=== PATIENT | female | born 2000 | race Caucasian/White ===

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

== ENCOUNTER 2019-04-15 18:29 | Observation (INO) | payer OTHER ==
[~2019-04-15] VITALS: Ht 160 cm; Wt 65.8 kg
[~2019-04-15 18:29] MED LIST changes: +INVEGA SUS234 MG/1.5 IM; +Loxapine10 MG PO; -PALI3TAB; +PALI3TAB PO
[2019-04-15 21:14] LABS: Source, Urine Clean Catch
[2019-04-15 21:17] LABS: Bilirubin, Urine Neg (Neg); Blood, Urine 1+ (Neg); Glucose Qualitative, Urine Neg (Neg); Ketones, Urine Neg (Neg); Leukocyte Esterase, Urine 1+ (Neg); Nitrite, Urine Neg (Neg); Protein, Urine Neg (Neg); Specific Gravity, Urine 1.015 (1.003-1.022); Urobilinogen, Urine NORM (Normal)
[2019-04-15 21:23] LABS: Appearance, Urine Clear (Clear); Color, Urine Yellow (P-Yellow)
[2019-04-15 21:24] LABS: Bacteria Rare /hpf; Red Blood Cells, Urine 0-2 /hpf (0-2); Squamous Epithelial Cells Rare /hpf (Few); White Blood Cells, Urine 0-2 /hpf (0-5)
[2019-04-15 23:42] LABS: BASOPHILS ABSOLUTE AUTO 0.02 K/mm3 (0.00-0.23); BASOPHILS PERCENT AUTO 0 % (0-2); EOSINOPHILS ABSOLUTE AUTO 0.09 K/mm3 (0.00-0.68); EOSINOPHILS PERCENT AUTO 1 % (0-6); Hematocrit 45.9 % (33.0-51.0); Hemoglobin 14.8 g/dL (11.5-16.0); IMMATURE GRAN ABSOLUTE AUTO 0.01 K/mm3 (0.00-0.10); IMMATURE GRAN PERCENT AUTO 0 % (0-1); LYMPHOCYTES ABSOLUTE AUTO 2.81 K/mm3 (0.84-5.20); LYMPHOCYTES PERCENT AUTO 32 % (21-46); MONOCYTES ABSOLUTE AUTO 0.65 K/mm3 (0.16-1.47); MONOCYTES PERCENT AUTO 7 % (4-13); Mean Corpuscular HGB 28.8 pg (26.0-34.0); Mean Corpuscular HGB Conc 32.2 g/dL (31.5-36.5); Mean Corpuscular Volume 89 fL (80-100); Mean Platelet Volume 8.6 fL (9.1-12.4); NEUTROPHILS ABSOLUTE AUTO 5.22 K/mm3 (1.96-9.15); NEUTROPHILS PERCENT AUTO 59 % (41-73); Platelet Count 295 K/mm3 (150-400); RDW Coefficient Variation 12.7 % (11.7-14.2); RDW Standard Deviation 41.5 fL (35.1-46.3); Red Blood Cell Count 5.14 M/mm3 (3.80-5.20)
[2019-04-16 00:05] LABS: Salicylate 2.5 mg/dL (2.8-20.0)
[2019-04-16 00:06] LABS: Alanine Aminotransfer (ALT/SGP 15 U/L (12-78); Albumin, Blood 4.2 g/dL (3.4-5.0); Alk Phos 77 U/L (45-116); Anion Gap 10 mmol/L (6-16); Aspartate Aminotrans (AST/SGOT 25 U/L (12-37); Bilirubin, Total 0.4 mg/dL (0.1-1.0); Blood Urea Nitrogen 10 mg/dL (8-21); Bun/Creatinine Ratio 15.2 (12.0-20.0); CO2, Blood 23 mmol/L (21-32); Calcium, Blood 8.9 mg/dL (8.5-10.1); Chloride, Blood 106 mmol/L (98-108); Creatinine, Blood 0.66 mg/dL (0.40-1.00); Ethanol (Alcohol), Blood, Med <3 mg/dL; Globulin, Blood 4.2 g/dL (2.2-4.0); Glomerular Filtration Rate >60 (60-); Glucose, Blood 109 mg/dL (70-99); Potassium, Blood 3.8 mmol/L (3.5-5.5); Sodium, Blood 139 mmol/L (136-145); Thyroxine (T4) 10.2 ug/dL (4.8-13.9); Total Protein, Blood 8.4 g/dL (6.4-8.2)
[2019-04-16 00:14] LABS: Acetaminophen, Random <2.0 ug/mL (10.0-30.0)
[2019-04-16 02:05] LABS: U Amphetamine Screen Not Detected; U Barbituate Screen Not Detected; U Benzodiazapine Screen Not Detected; U Buprenorphine Screen Not Detected; U Cannabinoids Screen Not Detected; U Cocaine Screen Not Detected; U Methadone Screen Not Detected; U Methamphetamine Screen Not Detected; U Opiates Screen Not Detected; U Oxycodone Screen Not Detected; U Phencyclidine Screen Not Detected; U Propoxyphene Screen Not Detected
== END 2019-04-19 09:00 ==
LOC: ER 18:29 → EOR 18:30
PROVIDERS: ADMIT Emergency Medicine
DX: F20.3 Undifferentiated schizophrenia (principal); F17.210 Nicotine dependence, cigarettes, uncomplicated; Z79.899 Other long term (current) drug therapy; Z88.8 Allergy status to other drugs, medicaments and biological substances
CPT/HCPCS: 80053; 81001; 81025; 84436; 84443; 85025; 87077; 87086; 87147; 87186; 99285; G0378; G0480; Q3014

== ENCOUNTER → 2019-11-27 | Outpatient (CLI) | payer OTHER ==
[~2019-11-27] MED LIST changes: +Abilify2 MG; +CLON.5; +NAPR550 PO; +Zofran4 MG PO
[2019-11-27 15:35] LABS: Adenovirus F 40/41 Not Detected (NOT DETECT); Astrovirus Not Detected (NOT DETECT); Campylobacter Sp Not Detected (NOT DETECT); Cryptosporidium Not Detected (NOT DETECT); Cyclospora Cayetanensis Not Detected (NOT DETECT); E. Coli O157 Not Detected (NOT DETECT); Entamoeba Histolytica Not Detected (NOT DETECT); Enteroaggregative E. coli-EAEC Not Detected (NOT DETECT); Enteropathogenic E. coli-EPEC Not Detected (NOT DETECT); Enterotoxigenic E. coli-ETEC Not Detected (NOT DETECT); Giardia Lamblia Not Detected (NOT DETECT); Plesiomonas Shigelloides Not Detected (NOT DETECT); Salmonella Sp Not Detected (NOT DETECT); Shiga Toxin-prod E. coli-STEC Not Detected (NOT DETECT); Shigella/Enteroin E. coli-EIEC Not Detected (NOT DETECT); Vibrio Cholerae Not Detected (NOT DETECT); Vibrio Sp Not Detected (NOT DETECT); Yersinia Enterocolitica Not Detected (NOT DETECT)
[2019-11-27 15:36] LABS: Norovirus GI/GII Not Detected (NOT DETECT); Rotavirus A Not Detected (NOT DETECT); Sapovirus Not Detected (NOT DETECT)
== END ==
LOC: LAB 12:55 → LAB SHORT 12:55 → LAB FUT 11-19 10:00
PROVIDERS: Nurse Practitioner Family
DX: R19.7 Diarrhea, unspecified (principal)
CPT/HCPCS: 0097U

== ENCOUNTER 2020-06-08 20:36 | Emergency (ER) | payer OTHER ==
[~2020-06-08] VITALS: Ht 154.9 cm; Wt 68.0 kg
[2020-06-08 21:02] LABS: Bilirubin, Urine Neg (Neg); Blood, Urine 2+ (Neg); Glucose Qualitative, Urine Neg (Neg); Ketones, Urine Neg (Neg); Leukocyte Esterase, Urine 3+ (Neg); Nitrite, Urine Neg (Neg); Protein, Urine 2+ (Neg); Source, Urine Clean Catch; Urobilinogen, Urine 1+ (Normal)
[2020-06-08 21:05] LABS: Appearance, Urine Hazy (Clear); Color, Urine Yellow (P-Yellow)
[2020-06-08 21:09] LABS: Bacteria Few /hpf; Red Blood Cells, Urine 0-2 /hpf (0-2); Squamous Epithelial Cells Not Seen /hpf (Few)
== END 2020-06-08 21:20 | disposition left against medical advice (07) ==
LOC: ER 20:36
PROVIDERS: Physician Assistant
DX: R19.7 Diarrhea, unspecified (principal); R11.10 Vomiting, unspecified; Z53.21 Procedure and treatment not carried out due to patient leaving prior to being seen by health care provider
CPT/HCPCS: 81001; 87086; 99283

== ENCOUNTER 2020-06-22 19:33 | Emergency (ER) | payer OTHER ==
[~2020-06-22] VITALS: Ht 154.9 cm; Wt 64.9 kg
[2020-06-22 20:52] LABS: BASOPHILS ABSOLUTE AUTO 0.03 K/mm3 (0.00-0.23); BASOPHILS PERCENT AUTO 0 % (0-2); EOSINOPHILS ABSOLUTE AUTO 0.08 K/mm3 (0.00-0.68); EOSINOPHILS PERCENT AUTO 1 % (0-6); Hematocrit 42.1 % (33.0-51.0); Hemoglobin 14.5 g/dL (11.5-16.0); IMMATURE GRAN ABSOLUTE AUTO 0.03 K/mm3 (0.00-0.10); IMMATURE GRAN PERCENT AUTO 0 % (0-1); LYMPHOCYTES PERCENT AUTO 17 % (21-46); MONOCYTES ABSOLUTE AUTO 0.79 K/mm3 (0.16-1.47); MONOCYTES PERCENT AUTO 7 % (4-13); Mean Corpuscular HGB 30.2 pg (26.0-34.0); Mean Corpuscular HGB Conc 34.4 g/dL (31.5-36.5); Mean Corpuscular Volume 88 fL (80-100); Mean Platelet Volume 9.1 fL (9.1-12.4); NEUTROPHILS PERCENT AUTO 75 % (41-73); Platelet Count 301 K/mm3 (150-400); RDW Coefficient Variation 12.4 % (11.7-14.2); RDW Standard Deviation 40.4 fL (35.1-46.3); White Blood Cell Count 11.13 K/mm3 (4.00-11.30)
[2020-06-22 21:10] LABS: Alanine Aminotransfer (ALT/SGP 27 U/L (12-78); Albumin, Blood 4.4 g/dL (3.4-5.0); Albumin/Globulin Ratio 1.2 (0.8-1.8); Alk Phos 68 U/L (50-136); Anion Gap 5 mmol/L (6-16); Aspartate Aminotrans (AST/SGOT 45 U/L (12-37); Bilirubin, Total 0.3 mg/dL (0.1-1.0); Blood Urea Nitrogen 8 mg/dL (8-24); Bun/Creatinine Ratio 10.3 (12.0-20.0); CO2, Blood 25 mmol/L (21-32); Calcium, Blood 8.9 mg/dL (8.5-10.1); Chloride, Blood 106 mmol/L (98-108); Creatinine, Blood 0.78 mg/dL (0.40-1.00); Globulin, Blood 3.6 g/dL (2.2-4.0); Glomerular Filtration Rate >60 (60-); Glucose, Blood 89 mg/dL (70-99); Potassium, Blood 4.1 mmol/L (3.5-5.5); Sodium, Blood 136 mmol/L (136-145)
[2020-06-22 21:48] LABS: Source, Urine Clean Catch
[2020-06-22 21:52] LABS: Bilirubin, Urine Neg (Neg); Blood, Urine Neg (Neg); Glucose Qualitative, Urine Neg (Neg); Ketones, Urine Neg (Neg); Leukocyte Esterase, Urine 2+ (Neg); Nitrite, Urine Neg (Neg); Protein, Urine 1+ (Neg); Urobilinogen, Urine NORM (Normal)
[2020-06-22 22:08] LABS: Appearance, Urine Clear (Clear); Color, Urine Yellow (P-Yellow)
[2020-06-22 22:09] LABS: Bacteria Few /hpf; Red Blood Cells, Urine Not Seen /hpf (0-2); Squamous Epithelial Cells Rare /hpf (Few)
== END 2020-06-22 22:15 | disposition left against medical advice (07) ==
LOC: ER 19:33
PROVIDERS: Emergency Medicine
DX: R11.2 Nausea with vomiting, unspecified (principal); R19.7 Diarrhea, unspecified; Z53.21 Procedure and treatment not carried out due to patient leaving prior to being seen by health care provider
CPT/HCPCS: 36415; 80053; 81001; 84703; 85025; 87086; 99283

== ENCOUNTER 2020-11-30 14:16 | Observation (INO) | payer OTHER ==
[~2020-11-30] VITALS: Ht 157.5 cm; Wt 54.4 kg
[2020-11-30] MEDS ORDERED: NAPROXEN500 MG PO (14:52)
[2020-11-30] MEDS ORDERED: CAPLYTA42 MG PO (14:53)
[2020-11-30] MEDS ORDERED: APHEN325 M2 PO (14:53)
[2020-11-30] MEDS ORDERED: RISP3 PO (14:54)
[2020-11-30] MEDS ORDERED: KLONOPIN0.5 M3 PO (14:54)
[2020-11-30] MEDS ORDERED: CLONAZEPAM1 MG PO (14:54)
[2020-11-30 15:03] LABS: BASOPHILS ABSOLUTE AUTO 0.04 K/mm3 (0.00-0.23); BASOPHILS PERCENT AUTO 0 % (0-2); EOSINOPHILS ABSOLUTE AUTO 0.01 K/mm3 (0.00-0.68); EOSINOPHILS PERCENT AUTO 0 % (0-6); Hemoglobin 13.5 g/dL (11.5-16.0); IMMATURE GRAN ABSOLUTE AUTO 0.05 K/mm3 (0.00-0.10); IMMATURE GRAN PERCENT AUTO 0 % (0-1); LYMPHOCYTES ABSOLUTE AUTO 1.58 K/mm3 (0.84-5.20); LYMPHOCYTES PERCENT AUTO 8 % (21-46); MONOCYTES ABSOLUTE AUTO 2.23 K/mm3 (0.16-1.47); MONOCYTES PERCENT AUTO 12 % (4-13); Mean Corpuscular HGB Conc 33.8 g/dL (31.5-36.5); Mean Corpuscular Volume 89 fL (80-100); NEUTROPHILS ABSOLUTE AUTO 14.81 K/mm3 (1.96-9.15); NEUTROPHILS PERCENT AUTO 79 % (41-73); Platelet Count 288 K/mm3 (150-400); RDW Coefficient Variation 13.2 % (11.7-14.2); RDW Standard Deviation 43.5 fL (35.1-46.3); White Blood Cell Count 18.72 K/mm3 (4.00-11.30)
[2020-11-30 15:18] LABS: Alanine Aminotransfer (ALT/SGP 40 U/L (12-78); Albumin, Blood 4.4 g/dL (3.4-5.0); Albumin/Globulin Ratio 1.4 (0.8-1.8); Alk Phos 75 U/L (50-136); Anion Gap 8 mmol/L (6-16); Aspartate Aminotrans (AST/SGOT 94 U/L (12-37); Bilirubin, Total 1.7 mg/dL (0.1-1.0); Blood Urea Nitrogen 9 mg/dL (8-24); Bun/Creatinine Ratio 12.6 (12.0-20.0); CO2, Blood 24 mmol/L (21-32); Calcium, Blood 8.7 mg/dL (8.5-10.1); Chloride, Blood 106 mmol/L (98-108); Creatinine, Blood 0.72 mg/dL (0.40-1.00); Ethanol (Alcohol), Blood, Med <3 mg/dL; Globulin, Blood 3.1 g/dL (2.2-4.0); Glomerular Filtration Rate >60 (60-); Glucose, Blood 72 mg/dL (70-99); Salicylate <1.7 mg/dL (2.8-20.0); Sodium, Blood 138 mmol/L (136-145); Total Protein, Blood 7.5 g/dL (6.4-8.2)
[2020-11-30 15:20] LABS: Acetaminophen, Random <2.0 ug/mL (10.0-30.0)
[2020-11-30 16:35] LABS: Source, Urine Clean Catch
[2020-11-30 16:38] LABS: Appearance, Urine Clear (Clear); Bilirubin, Urine Neg (Neg); Blood, Urine 1+ (Neg); Color, Urine Yellow (P-Yellow); Glucose Qualitative, Urine Neg (Neg); Ketones, Urine 3+ (Neg); Leukocyte Esterase, Urine Neg (Neg); Nitrite, Urine Neg (Neg); Protein, Urine Neg (Neg); Urobilinogen, Urine NORM (Normal)
[2020-11-30 16:55] LABS: Bacteria Rare /hpf; Red Blood Cells, Urine 0-2 /hpf (0-2); Squamous Epithelial Cells Rare /hpf (Few); White Blood Cells, Urine 0-2 /hpf (0-5)
[2020-11-30 16:56] LABS: U Amphetamine Screen Not Detected; U Barbituate Screen Not Detected; U Benzodiazapine Screen Not Detected; U Buprenorphine Screen Not Detected; U Cannabinoids Screen Not Detected; U Cocaine Screen Not Detected; U Methadone Screen Not Detected; U Methamphetamine Screen Not Detected; U Opiates Screen Not Detected; U Oxycodone Screen Not Detected; U Phencyclidine Screen Not Detected; U Propoxyphene Screen Not Detected
[2020-11-30 17:24] LABS: SARS-Cov-2 (COVID-19) PCR, MMC NEGATIVE (NEGATIVE)
[2020-12-01] MEDS ORDERED: LOPERAMIDE PO (18:01)
[2020-12-01] MEDS ORDERED: APHEN325 M2 PO (18:01)
[2020-12-01] MEDS ORDERED: RISP.25 PO (18:02)
[2020-12-01] MEDS ORDERED: KLONOPIN0.5 M3 PO (18:02)
[2020-12-01] MEDS ORDERED: Florastor250 MG PO (18:02)
== END 2020-12-06 19:03 ==
LOC: ER 14:16 → EOR 14:17
PROVIDERS: ADMIT Student in an Organized Health Care Education/Training Program
DX: F20.3 Undifferentiated schizophrenia (principal); F17.210 Nicotine dependence, cigarettes, uncomplicated; S90.822A Blister (nonthermal), left foot, initial encounter; S90.821A Blister (nonthermal), right foot, initial encounter; X58.XXXA Exposure to other specified factors, initial encounter; Z20.822 Contact with and (suspected) exposure to COVID-19; Z91.14 Patient's other noncompliance with medication regimen
CPT/HCPCS: 36415; 73620; 80053; 81001; 81025; 85025; 87430; A9270; G0480; J3486; U0004

== ENCOUNTER 2021-01-03 07:17 | Emergency (ER) | payer OTHER ==
[~2021-01-03] VITALS: Ht 154.9 cm; Wt 59.0 kg
[~2021-01-03 07:17] MED LIST changes: +APHEN325 M2 PO; +CAPLYTA42 MG PO; +CLONAZEPAM1 MG PO; +Florastor250 MG PO; +KLONOPIN0.5 M3 PO; +LOPERAMIDE PO; +NAPROXEN500 MG PO; +RISP.25 PO; +RISP3 PO
[2021-01-06] MEDS ORDERED: INVEGA PO (18:28)
== END 2021-01-03 11:49 | disposition home or self-care (01) ==
LOC: ER 07:17
DX: J02.9 Acute pharyngitis, unspecified (principal); F20.9 Schizophrenia, unspecified; Z20.822 Contact with and (suspected) exposure to COVID-19; Z88.8 Allergy status to other drugs, medicaments and biological substances; Z79.899 Other long term (current) drug therapy
CPT/HCPCS: 99283; A9270

== ENCOUNTER 2021-01-10 13:01 | Observation (INO) | payer OTHER ==
[~2021-01-10] VITALS: Ht 154.9 cm; Wt 61.0 kg
[2021-01-10] MEDS ORDERED: PALI6TA PO (14:45)
[2021-01-10 15:15] LABS: BASOPHILS ABSOLUTE AUTO 0.04 K/mm3 (0.00-0.23); BASOPHILS PERCENT AUTO 0 % (0-2); EOSINOPHILS ABSOLUTE AUTO 0.11 K/mm3 (0.00-0.68); EOSINOPHILS PERCENT AUTO 1 % (0-6); Hematocrit 43.6 % (33.0-51.0); Hemoglobin 14.7 g/dL (11.5-16.0); IMMATURE GRAN ABSOLUTE AUTO 0.03 K/mm3 (0.00-0.10); IMMATURE GRAN PERCENT AUTO 0 % (0-1); LYMPHOCYTES ABSOLUTE AUTO 2.44 K/mm3 (0.84-5.20); LYMPHOCYTES PERCENT AUTO 23 % (21-46); MONOCYTES ABSOLUTE AUTO 0.89 K/mm3 (0.16-1.47); MONOCYTES PERCENT AUTO 8 % (4-13); Mean Corpuscular HGB 29.9 pg (26.0-34.0); Mean Corpuscular HGB Conc 33.7 g/dL (31.5-36.5); Mean Corpuscular Volume 89 fL (80-100); Mean Platelet Volume 8.7 fL (9.1-12.4); NEUTROPHILS ABSOLUTE AUTO 7.09 K/mm3 (1.96-9.15); NEUTROPHILS PERCENT AUTO 67 % (41-73); Platelet Count 369 K/mm3 (150-400); RDW Coefficient Variation 13.1 % (11.7-14.2); RDW Standard Deviation 42.6 fL (35.1-46.3); Red Blood Cell Count 4.92 M/mm3 (3.80-5.20)
[2021-01-10 15:20] LABS: Source, Urine Clean Catch
[2021-01-10 15:27] LABS: Appearance, Urine Hazy (Clear); Bilirubin, Urine Neg (Neg); Blood, Urine 2+ (Neg); Color, Urine Yellow (P-Yellow); Glucose Qualitative, Urine Neg (Neg); Ketones, Urine 1+ (Neg); Leukocyte Esterase, Urine Neg (Neg); Nitrite, Urine Neg (Neg); Protein, Urine Neg (Neg); Specific Gravity, Urine 1.015 (1.003-1.022); Urobilinogen, Urine NORM (Normal)
[2021-01-10 15:34] LABS: Alanine Aminotransfer (ALT/SGP 159 U/L (12-78); Albumin, Blood 4.2 g/dL (3.4-5.0); Alk Phos 99 U/L (50-136); Anion Gap 6 mmol/L (6-16); Aspartate Aminotrans (AST/SGOT 117 U/L (12-37); Bilirubin, Total 0.5 mg/dL (0.1-1.0); Blood Urea Nitrogen 9 mg/dL (8-24); CO2, Blood 28 mmol/L (21-32); Calcium, Blood 9.2 mg/dL (8.5-10.1); Chloride, Blood 105 mmol/L (98-108); Creatinine, Blood 0.56 mg/dL (0.40-1.00); Ethanol (Alcohol), Blood, Med <3 mg/dL; Glomerular Filtration Rate >60 (60-); Glucose, Blood 87 mg/dL (70-99); Potassium, Blood 4.1 mmol/L (3.5-5.5); Salicylate <1.7 mg/dL (2.8-20.0); Sodium, Blood 139 mmol/L (136-145); Total Protein, Blood 8.2 g/dL (6.4-8.2)
[2021-01-10 15:35] LABS: Acetaminophen, Random <2.0 ug/mL (10.0-30.0)
[2021-01-10 15:50] LABS: Bacteria Rare /hpf; Squamous Epithelial Cells Rare /hpf (Few); White Blood Cells, Urine 0-2 /hpf (0-5)
[2021-01-10 16:01] LABS: U Amphetamine Screen Not Detected; U Barbituate Screen Not Detected; U Benzodiazapine Screen DETECTED; U Buprenorphine Screen Not Detected; U Cannabinoids Screen Not Detected; U Cocaine Screen Not Detected; U Methadone Screen Not Detected; U Methamphetamine Screen Not Detected; U Opiates Screen Not Detected; U Oxycodone Screen Not Detected; U Phencyclidine Screen Not Detected; U Propoxyphene Screen Not Detected
[2021-01-10 16:05] LABS: SARS-Cov-2 (COVID-19) PCR, MMC NEGATIVE (NEGATIVE)
[2021-01-22] MEDS ORDERED: RISP2 PO (18:30)
== END 2021-01-22 08:36 | disposition left against medical advice (07) ==
LOC: ER 13:01 → EOR 13:02
PROVIDERS: Physician Assistant; ADMIT Student in an Organized Health Care Education/Training Program
DX: F20.9 Schizophrenia, unspecified (principal); F17.210 Nicotine dependence, cigarettes, uncomplicated; Z88.8 Allergy status to other drugs, medicaments and biological substances; Z20.822 Contact with and (suspected) exposure to COVID-19
CPT/HCPCS: 80053; 81001; 81025; 85025; 96372; 99285; A9270; G0378; G0480; Q3014; U0004

== ENCOUNTER 2021-01-22 15:19 | Emergency (ER) | payer OTHER ==
[~2021-01-22] VITALS: Ht 149.9 cm; Wt 54.4 kg
[~2021-01-22 15:19] MED LIST changes: +PALI6TA PO
[2021-01-22] MEDS ORDERED: RISP2 PO (18:30)
== END 2021-01-22 18:56 | disposition home or self-care (01) ==
LOC: ER 15:19
DX: F20.9 Schizophrenia, unspecified (principal); R11.2 Nausea with vomiting, unspecified; R10.30 Lower abdominal pain, unspecified; M54.9 Dorsalgia, unspecified; R30.0 Dysuria; F17.200 Nicotine dependence, unspecified, uncomplicated; Z88.8 Allergy status to other drugs, medicaments and biological substances; Z79.899 Other long term (current) drug therapy
CPT/HCPCS: 99283

== ENCOUNTER 2021-01-22 19:26 | Emergency (ER) | payer OTHER ==
[~2021-01-22] VITALS: Ht 162.6 cm; Wt 54.4 kg
[~2021-01-22 19:26] MED LIST changes: +RISP2 PO
== END 2021-01-22 19:59 | disposition home or self-care (01) ==
LOC: ER 19:26
DX: Z13.9 Encounter for screening, unspecified (principal); F17.200 Nicotine dependence, unspecified, uncomplicated; Z88.8 Allergy status to other drugs, medicaments and biological substances; Z79.899 Other long term (current) drug therapy
CPT/HCPCS: 99282

== ENCOUNTER 2021-02-28 18:55 | Emergency (ER) | payer OTHER ==
[~2021-02-28] VITALS: Ht 162.6 cm; Wt 54.4 kg
[~2021-02-28 18:55] MED LIST changes: +Benztropine Me0.5 MG PO; +CLON.5 PO
== END 2021-02-28 21:30 | disposition home or self-care (01) ==
LOC: ER 18:55
DX: M79.671 Pain in right foot (principal); F20.9 Schizophrenia, unspecified; F17.200 Nicotine dependence, unspecified, uncomplicated; Z59.00 Homelessness unspecified; Z88.8 Allergy status to other drugs, medicaments and biological substances; Z79.899 Other long term (current) drug therapy
CPT/HCPCS: 73630; 99283-25; A9270

== ENCOUNTER 2021-03-09 11:04 | Observation (INO) | payer OTHER ==
[~2021-03-09] VITALS: Ht 154.9 cm; Wt 61.2 kg
[2021-03-09 12:35] LABS: Source, Urine Clean Catch
[2021-03-09 12:42] LABS: Appearance, Urine Hazy (Clear); Bilirubin, Urine Neg (Neg); Blood, Urine 1+ (Neg); Color, Urine Yellow (P-Yellow); Glucose Qualitative, Urine Neg (Neg); Ketones, Urine Neg (Neg); Leukocyte Esterase, Urine 3+ (Neg); Nitrite, Urine Neg (Neg); Protein, Urine 3+ (Neg); Urobilinogen, Urine NORM (Normal)
[2021-03-09 12:49] LABS: BASOPHILS ABSOLUTE AUTO 0.04 K/mm3 (0.00-0.23); BASOPHILS PERCENT AUTO 1 % (0-2); EOSINOPHILS ABSOLUTE AUTO 0.16 K/mm3 (0.00-0.68); EOSINOPHILS PERCENT AUTO 2 % (0-6); Hemoglobin 13.9 g/dL (11.5-16.0); IMMATURE GRAN ABSOLUTE AUTO 0.02 K/mm3 (0.00-0.10); IMMATURE GRAN PERCENT AUTO 0 % (0-1); LYMPHOCYTES ABSOLUTE AUTO 1.97 K/mm3 (0.84-5.20); LYMPHOCYTES PERCENT AUTO 27 % (21-46); MONOCYTES ABSOLUTE AUTO 0.59 K/mm3 (0.16-1.47); MONOCYTES PERCENT AUTO 8 % (4-13); Mean Corpuscular HGB 29.6 pg (26.0-34.0); Mean Corpuscular HGB Conc 33.1 g/dL (31.5-36.5); Mean Corpuscular Volume 90 fL (80-100); Mean Platelet Volume 9.1 fL (9.1-12.4); NEUTROPHILS ABSOLUTE AUTO 4.58 K/mm3 (1.96-9.15); NEUTROPHILS PERCENT AUTO 62 % (41-73); Platelet Count 282 K/mm3 (150-400); RDW Coefficient Variation 12.7 % (11.7-14.2); RDW Standard Deviation 41.5 fL (35.1-46.3); Red Blood Cell Count 4.69 M/mm3 (3.80-5.20); White Blood Cell Count 7.36 K/mm3 (4.00-11.30)
[2021-03-09 12:54] LABS: Red Blood Cells, Urine 0-2 /hpf (0-2); Squamous Epithelial Cells Few /hpf (Few)
[2021-03-09 12:55] LABS: Bacteria Few /hpf; Mucus Mod (0-Heavy)
[2021-03-09 12:56] LABS: Renal Epithelial Few /hpf (0-Rare); Transitional Epithelial Cells Mod /hpf (0-Rare)
[2021-03-09 12:59] LABS: U Amphetamine Screen Not Detected; U Barbituate Screen Not Detected; U Benzodiazapine Screen Not Detected; U Buprenorphine Screen Not Detected; U Cannabinoids Screen Not Detected; U Cocaine Screen Not Detected; U Methadone Screen Not Detected; U Methamphetamine Screen Not Detected; U Opiates Screen Not Detected; U Oxycodone Screen Not Detected; U Phencyclidine Screen Not Detected; U Propoxyphene Screen Not Detected
[2021-03-09 13:18] LABS: Ethanol (Alcohol), Blood, Med <3 mg/dL; Salicylate <1.7 mg/dL (2.8-20.0)
[2021-03-09 13:19] LABS: Acetaminophen, Random <2.0 ug/mL (10.0-30.0); Alanine Aminotransfer (ALT/SGP 31 U/L (12-78); Albumin, Blood 3.7 g/dL (3.4-5.0); Albumin/Globulin Ratio 1.2 (0.8-1.8); Alk Phos 76 U/L (50-136); Anion Gap 5 mmol/L (6-16); Aspartate Aminotrans (AST/SGOT 40 U/L (12-37); Bilirubin, Total 0.4 mg/dL (0.1-1.0); Blood Urea Nitrogen 8 mg/dL (8-24); Bun/Creatinine Ratio 11.6 (12.0-20.0); CO2, Blood 26 mmol/L (21-32); Calcium, Blood 8.4 mg/dL (8.5-10.1); Chloride, Blood 111 mmol/L (98-108); Creatinine, Blood 0.69 mg/dL (0.40-1.00); Globulin, Blood 3.2 g/dL (2.2-4.0); Glomerular Filtration Rate >60 (60-); Glucose, Blood 90 mg/dL (70-99); Potassium, Blood 4.3 mmol/L (3.5-5.5); Sodium, Blood 142 mmol/L (136-145); Total Protein, Blood 6.9 g/dL (6.4-8.2)
[2021-03-09 17:30] LABS: Influenza A, PCR NEGATIVE (NEGATIVE); Influenza B, PCR NEGATIVE (NEGATIVE); Resp Syncytial Virus, PCR NEGATIVE (NEGATIVE); SARS-Cov-2 (COVID-19) PCR, MMC NEGATIVE (NEGATIVE)
== END 2021-03-10 23:56 ==
LOC: ER 11:04 → EOR 11:05
PROVIDERS: Physician Assistant; ADMIT Student in an Organized Health Care Education/Training Program
DX: F20.9 Schizophrenia, unspecified (principal); Z88.8 Allergy status to other drugs, medicaments and biological substances; Z79.899 Other long term (current) drug therapy; F17.210 Nicotine dependence, cigarettes, uncomplicated
CPT/HCPCS: 0241U; 36415; 80053; 81001; 81025; 85025; 87086; 87147; 99285; A9270; G0378; G0480; Q3014

== ENCOUNTER 2021-05-05 13:28 | Observation (INO) | payer OTHER ==
[~2021-05-05] VITALS: Ht 152.4 cm; Wt 65.0 kg
[~2021-05-05 13:28] MED LIST changes: +BENZ1 PO; +DEPAKOTE ER500 M2 PO; +MELA3 PO; +QUET200 PO; +TRAZ150T57 PO
[2021-05-05 15:48] LABS: BASOPHILS ABSOLUTE AUTO 0.03 K/mm3 (0.00-0.23); BASOPHILS PERCENT AUTO 0 % (0-2); EOSINOPHILS ABSOLUTE AUTO 0.16 K/mm3 (0.00-0.68); EOSINOPHILS PERCENT AUTO 2 % (0-6); Hematocrit 43.5 % (33.0-51.0); Hemoglobin 14.3 g/dL (11.5-16.0); IMMATURE GRAN ABSOLUTE AUTO 0.02 K/mm3 (0.00-0.10); IMMATURE GRAN PERCENT AUTO 0 % (0-1); LYMPHOCYTES ABSOLUTE AUTO 1.67 K/mm3 (0.84-5.20); LYMPHOCYTES PERCENT AUTO 24 % (21-46); MONOCYTES ABSOLUTE AUTO 0.72 K/mm3 (0.16-1.47); MONOCYTES PERCENT AUTO 10 % (4-13); Mean Corpuscular HGB 29.8 pg (26.0-34.0); Mean Corpuscular HGB Conc 32.9 g/dL (31.5-36.5); Mean Corpuscular Volume 91 fL (80-100); Mean Platelet Volume 8.9 fL (9.1-12.4); NEUTROPHILS ABSOLUTE AUTO 4.48 K/mm3 (1.96-9.15); NEUTROPHILS PERCENT AUTO 63 % (41-73); Platelet Count 254 K/mm3 (150-400); RDW Coefficient Variation 12.4 % (11.7-14.2); RDW Standard Deviation 41.1 fL (35.1-46.3); White Blood Cell Count 7.08 K/mm3 (4.00-11.30)
[2021-05-05 16:17] LABS: Alanine Aminotransfer (ALT/SGP 25 U/L (12-78); Albumin, Blood 3.7 g/dL (3.4-5.0); Albumin/Globulin Ratio 0.9 (0.8-1.8); Alk Phos 79 U/L (50-136); Anion Gap 8 mmol/L (6-16); Aspartate Aminotrans (AST/SGOT 30 U/L (12-37); Bilirubin, Total 0.5 mg/dL (0.1-1.0); Blood Urea Nitrogen 15 mg/dL (8-24); Bun/Creatinine Ratio 20.4 (12.0-20.0); CO2, Blood 23 mmol/L (21-32); Calcium, Blood 8.7 mg/dL (8.5-10.1); Chloride, Blood 107 mmol/L (98-108); Creatinine, Blood 0.74 mg/dL (0.40-1.00); Ethanol (Alcohol), Blood, Med <3 mg/dL; Globulin, Blood 3.9 g/dL (2.2-4.0); Glomerular Filtration Rate >60 (60-); Glucose, Blood 140 mg/dL (70-99); Potassium, Blood 3.8 mmol/L (3.5-5.5); Salicylate <1.7 mg/dL (2.8-20.0); Sodium, Blood 138 mmol/L (136-145); Total Protein, Blood 7.6 g/dL (6.4-8.2)
[2021-05-05 16:32] LABS: Acetaminophen, Random <2.0 ug/mL (10.0-30.0)
[2021-05-06 15:35] LABS: Source, Urine Clean Catch
[2021-05-06 15:45] LABS: Bilirubin, Urine Neg (Neg); Blood, Urine 1+ (Neg); Glucose Qualitative, Urine Neg (Neg); Ketones, Urine Neg (Neg); Leukocyte Esterase, Urine 3+ (Neg); Nitrite, Urine Neg (Neg); Protein, Urine Neg (Neg); Urobilinogen, Urine NORM (Normal)
[2021-05-06 15:52] LABS: Appearance, Urine Clear (Clear); Color, Urine Pale Yellow (P-Yellow)
[2021-05-06 15:53] LABS: Amorphous Light (0-Heavy); Bacteria Few /hpf; Squamous Epithelial Cells Few /hpf (Few)
[2021-05-06 16:15] LABS: U Amphetamine Screen Not Detected; U Barbituate Screen Not Detected; U Benzodiazapine Screen Not Detected; U Buprenorphine Screen Not Detected; U Cannabinoids Screen Not Detected; U Cocaine Screen Not Detected; U Methadone Screen Not Detected; U Methamphetamine Screen Not Detected; U Opiates Screen Not Detected; U Oxycodone Screen Not Detected; U Phencyclidine Screen Not Detected; U Propoxyphene Screen Not Detected
[2021-05-07 21:10] LABS: Valproic Acid 79.2 ug/mL (50.0-100.0)
== END 2021-05-08 12:13 | disposition home or self-care (01) ==
LOC: ER 13:28 → EOR 13:29
PROVIDERS: Physician Assistant; Psychiatry & Neurology Psychiatry; ADMIT Emergency Medicine
DX: F20.0 Paranoid schizophrenia (principal); Z88.8 Allergy status to other drugs, medicaments and biological substances; Z91.51 Personal history of suicidal behavior; Z59.00 Homelessness unspecified
CPT/HCPCS: 36415; 80053; 80164; 81001; 81025; 85025; 87086; 87147; 93005; 93010; 96372; 99285-25; A9270; G0378; G0480; Q3014

== ENCOUNTER 2021-05-13 18:37 | Observation (INO) | payer OTHER ==
[~2021-05-13] VITALS: Ht 152.4 cm; Wt 64.9 kg
[2021-05-13 19:47] LABS: BASOPHILS ABSOLUTE AUTO 0.05 K/mm3 (0.00-0.23); BASOPHILS PERCENT AUTO 1 % (0-2); EOSINOPHILS ABSOLUTE AUTO 0.15 K/mm3 (0.00-0.68); EOSINOPHILS PERCENT AUTO 2 % (0-6); Hematocrit 41.9 % (33.0-51.0); Hemoglobin 14.1 g/dL (11.5-16.0); IMMATURE GRAN ABSOLUTE AUTO 0.02 K/mm3 (0.00-0.10); IMMATURE GRAN PERCENT AUTO 0 % (0-1); LYMPHOCYTES ABSOLUTE AUTO 1.77 K/mm3 (0.84-5.20); LYMPHOCYTES PERCENT AUTO 25 % (21-46); MONOCYTES ABSOLUTE AUTO 0.64 K/mm3 (0.16-1.47); MONOCYTES PERCENT AUTO 9 % (4-13); Mean Corpuscular HGB 30.1 pg (26.0-34.0); Mean Corpuscular HGB Conc 33.7 g/dL (31.5-36.5); Mean Corpuscular Volume 89 fL (80-100); Mean Platelet Volume 9.3 fL (9.1-12.4); NEUTROPHILS ABSOLUTE AUTO 4.39 K/mm3 (1.96-9.15); NEUTROPHILS PERCENT AUTO 63 % (41-73); Platelet Count 219 K/mm3 (150-400); RDW Coefficient Variation 12.5 % (11.7-14.2); RDW Standard Deviation 41.3 fL (35.1-46.3); Red Blood Cell Count 4.69 M/mm3 (3.80-5.20); White Blood Cell Count 7.02 K/mm3 (4.00-11.30)
[2021-05-13 20:07] LABS: Ethanol (Alcohol), Blood, Med <3 mg/dL; Salicylate <1.7 mg/dL (2.8-20.0)
[2021-05-13 20:08] LABS: Alanine Aminotransfer (ALT/SGP 20 U/L (12-78); Albumin, Blood 3.9 g/dL (3.4-5.0); Alk Phos 70 U/L (50-136); Anion Gap 6 mmol/L (6-16); Aspartate Aminotrans (AST/SGOT 54 U/L (12-37); Bilirubin, Total 0.4 mg/dL (0.1-1.0); Blood Urea Nitrogen 13 mg/dL (8-24); Bun/Creatinine Ratio 21.1 (12.0-20.0); CO2, Blood 23 mmol/L (21-32); Calcium, Blood 8.4 mg/dL (8.5-10.1); Chloride, Blood 106 mmol/L (98-108); Creatinine, Blood 0.62 mg/dL (0.40-1.00); Globulin, Blood 3.9 g/dL (2.2-4.0); Glomerular Filtration Rate >60 (60-); Glucose, Blood 86 mg/dL (70-99); Potassium, Blood 5.1 mmol/L (3.5-5.5); Sodium, Blood 135 mmol/L (136-145); Total Protein, Blood 7.8 g/dL (6.4-8.2)
[2021-05-13 20:09] LABS: Acetaminophen, Random <2.0 ug/mL (10.0-30.0)
[2021-05-13 20:56] LABS: Source, Urine Clean Catch
[2021-05-13 21:08] LABS: Appearance, Urine Hazy (Clear); Bilirubin, Urine Neg (Neg); Blood, Urine 2+ (Neg); Color, Urine Yellow (P-Yellow); Glucose Qualitative, Urine Neg (Neg); Ketones, Urine 1+ (Neg); Leukocyte Esterase, Urine 3+ (Neg); Nitrite, Urine Neg (Neg); Protein, Urine Neg (Neg); Specific Gravity, Urine 1.015 (1.003-1.022); Urobilinogen, Urine NORM (Normal); pH, Urine 6.5 (5.0-8.0)
[2021-05-13 21:16] LABS: Red Blood Cells, Urine 0-2 /hpf (0-2); White Blood Cells, Urine 25-50 /hpf (0-5)
[2021-05-13 21:17] LABS: Bacteria Mod /hpf; Mucus Light (0-Heavy); Squamous Epithelial Cells Rare /hpf (Few); Transitional Epithelial Cells Rare /hpf (0-Rare)
[2021-05-13 21:21] LABS: U Amphetamine Screen Not Detected; U Barbituate Screen Not Detected; U Benzodiazapine Screen Not Detected; U Buprenorphine Screen Not Detected; U Cannabinoids Screen Not Detected; U Cocaine Screen Not Detected; U Methadone Screen Not Detected; U Methamphetamine Screen Not Detected; U Opiates Screen Not Detected; U Oxycodone Screen Not Detected; U Phencyclidine Screen Not Detected; U Propoxyphene Screen Not Detected
[2021-05-13 21:31] LABS: Influenza A, PCR NEGATIVE (NEGATIVE); Influenza B, PCR NEGATIVE (NEGATIVE); Resp Syncytial Virus, PCR NEGATIVE (NEGATIVE); SARS-Cov-2 (COVID-19) PCR, MMC NEGATIVE (NEGATIVE)
== END 2021-05-26 10:15 ==
LOC: ER 18:37 → EOR 18:38
PROVIDERS: Physician Assistant; ADMIT Emergency Medicine
DX: F20.9 Schizophrenia, unspecified (principal); F17.210 Nicotine dependence, cigarettes, uncomplicated; Z88.8 Allergy status to other drugs, medicaments and biological substances; Z91.51 Personal history of suicidal behavior; Z20.822 Contact with and (suspected) exposure to COVID-19
CPT/HCPCS: 0241U; 36415; 80053; 81001; 81025; 85025; 86592; 87077; 87086; 87147; 87186; 93005; 93010; 99285; A9270; G0378; G0480

== ENCOUNTER 2022-01-13 11:25 | Emergency (ER) | payer OTHER ==
[~2022-01-13] VITALS: Ht 160 cm; Wt 90.3 kg
[2022-01-13] MEDS ORDERED: Veetids 500500 MG PO (12:30)
== END 2022-01-13 12:45 | disposition home or self-care (01) ==
LOC: ER 11:25
DX: J02.9 Acute pharyngitis, unspecified (principal); Z87.891 Personal history of nicotine dependence
CPT/HCPCS: 87081; 87430

== ENCOUNTER 2022-01-20 18:45 | Emergency (ER) | payer OTHER ==
[~2022-01-20] VITALS: Ht 157.5 cm; Wt 90.3 kg
[~2022-01-20 18:45] MED LIST changes: +Veetids 500500 MG PO
== END 2022-01-20 19:38 | disposition home or self-care (01) ==
LOC: ER 18:45
DX: S80.01XA Contusion of right knee, initial encounter (principal); W01.0XXA Fall on same level from slipping, tripping and stumbling without subsequent striking against object, initial encounter; Z88.8 Allergy status to other drugs, medicaments and biological substances; Z79.899 Other long term (current) drug therapy; Z87.891 Personal history of nicotine dependence
CPT/HCPCS: 73562-RT

== ENCOUNTER 2022-01-27 21:44 | Emergency (ER) | payer OTHER ==
[~2022-01-27] VITALS: Ht 157.5 cm; Wt 93.0 kg
== END 2022-01-27 22:39 | disposition home or self-care (01) ==
LOC: ER 21:44
DX: R10.2 Pelvic and perineal pain (principal); Z88.8 Allergy status to other drugs, medicaments and biological substances; Z79.899 Other long term (current) drug therapy; Z87.891 Personal history of nicotine dependence
CPT/HCPCS: 99283

== ENCOUNTER 2022-02-01 14:52 | Emergency (ER) | payer OTHER ==
[~2022-02-01] VITALS: Ht 157.5 cm; Wt 93.0 kg
[2022-02-01 15:47] LABS: Source, Urine Clean Catch
[2022-02-01 15:56] LABS: Bilirubin, Urine Neg (Neg); Blood, Urine 1+ (Neg); Glucose Qualitative, Urine Neg (Neg); Ketones, Urine Neg (Neg); Leukocyte Esterase, Urine 3+ (Neg); Nitrite, Urine Neg (Neg); Protein, Urine Neg (Neg); Specific Gravity, Urine 1.015 (1.003-1.022); Urobilinogen, Urine NORM (Normal)
[2022-02-01 16:16] LABS: BASOPHILS ABSOLUTE AUTO 0.04 K/mm3 (0.00-0.23); BASOPHILS PERCENT AUTO 0 % (0-2); EOSINOPHILS ABSOLUTE AUTO 0.17 K/mm3 (0.00-0.68); EOSINOPHILS PERCENT AUTO 2 % (0-6); Hematocrit 44.5 % (33.0-51.0); Hemoglobin 14.8 g/dL (11.5-16.0); IMMATURE GRAN ABSOLUTE AUTO 0.05 K/mm3 (0.00-0.10); IMMATURE GRAN PERCENT AUTO 1 % (0-1); LYMPHOCYTES ABSOLUTE AUTO 2.23 K/mm3 (0.84-5.20); LYMPHOCYTES PERCENT AUTO 25 % (21-46); MONOCYTES ABSOLUTE AUTO 0.98 K/mm3 (0.16-1.47); MONOCYTES PERCENT AUTO 11 % (4-13); Mean Corpuscular HGB 29.5 pg (26.0-34.0); Mean Corpuscular HGB Conc 33.3 g/dL (31.5-36.5); Mean Corpuscular Volume 89 fL (80-100); Mean Platelet Volume 9.2 fL (9.1-12.4); NEUTROPHILS ABSOLUTE AUTO 5.53 K/mm3 (1.96-9.15); NEUTROPHILS PERCENT AUTO 61 % (41-73); Platelet Count 337 K/mm3 (150-400); RDW Coefficient Variation 12.5 % (11.7-14.2); RDW Standard Deviation 41.1 fL (35.1-46.3); Red Blood Cell Count 5.01 M/mm3 (3.80-5.20)
[2022-02-01 16:34] LABS: Bun/Creatinine Ratio 17.7 (12.0-20.0); Calcium, Blood 9.4 mg/dL (8.5-10.1); Creatinine, Blood 0.62 mg/dL (0.40-1.00)
[2022-02-01 16:37] LABS: Appearance, Urine Hazy (Clear); Color, Urine Pale Yellow (P-Yellow)
[2022-02-01 16:39] LABS: Mucus Light (0-Heavy)
[2022-02-01 16:40] LABS: Amorphous Light (0-Heavy); Bacteria Many /hpf; Red Blood Cells, Urine 0-2 /hpf (0-2); Squamous Epithelial Cells Few /hpf (Few); Transitional Epithelial Cells Rare /hpf (0-Rare)
== END 2022-02-01 16:24 | disposition left against medical advice (07) ==
LOC: ER 14:52
PROVIDERS: Physician Assistant
DX: R10.9 Unspecified abdominal pain (principal); Z53.21 Procedure and treatment not carried out due to patient leaving prior to being seen by health care provider
CPT/HCPCS: 36415; 80048; 81001; 81025; 83690; 85025

== ENCOUNTER 2022-02-20 09:53 | Emergency (ER) | payer OTHER ==
[~2022-02-20] VITALS: Ht 157.5 cm; Wt 81.7 kg
== END 2022-02-20 12:45 | disposition home or self-care (01) ==
LOC: ER 09:53
DX: S60.221A Contusion of right hand, initial encounter (principal); W22.8XXA Striking against or struck by other objects, initial encounter
CPT/HCPCS: 73130

== ENCOUNTER 2022-05-15 11:38 | Emergency (ER) | payer OTHER ==
[~2022-05-15] VITALS: Ht 157.5 cm; Wt 94.8 kg
[~2022-05-15 11:38] MED LIST changes: +Vistaril25 MG PO
[2022-05-15] MEDS ORDERED: OCUFLOX511 LEFTEAR (13:03)
== END 2022-05-15 13:27 | disposition home or self-care (01) ==
LOC: ER 11:38
DX: H60.92 Unspecified otitis externa, left ear (principal); F17.200 Nicotine dependence, unspecified, uncomplicated; Z79.899 Other long term (current) drug therapy; Z88.8 Allergy status to other drugs, medicaments and biological substances
CPT/HCPCS: 99282

== ENCOUNTER 2022-06-17 17:09 | Emergency (ER) | payer OTHER ==
[~2022-06-17] VITALS: Ht 157.5 cm; Wt 94.8 kg
[~2022-06-17 17:09] MED LIST changes: +OCUFLOX511 LEFTEAR; +Seroquel400 MG PO
== END 2022-06-17 18:37 | disposition home or self-care (01) ==
LOC: ER 17:09
DX: S41.031A Puncture wound without foreign body of right shoulder, initial encounter (principal); X99.8XXA Assault by other sharp object, initial encounter; Z79.899 Other long term (current) drug therapy; Z88.8 Allergy status to other drugs, medicaments and biological substances; Z87.891 Personal history of nicotine dependence
CPT/HCPCS: 99283

== ENCOUNTER 2022-08-16 10:54 | Observation (INO) | payer OTHER ==
[~2022-08-16] VITALS: Ht 157.5 cm; Wt 90.7 kg
[2022-08-16 11:23] VITALS: BP 127/74
[2022-08-16 12:24] LABS: BASOPHILS ABSOLUTE AUTO 0.05 K/mm3 (0.00-0.23); BASOPHILS PERCENT AUTO 0 % (0-2); EOSINOPHILS ABSOLUTE AUTO 0.07 K/mm3 (0.00-0.68); EOSINOPHILS PERCENT AUTO 1 % (0-6); Hematocrit 49.7 % (33.0-51.0); Hemoglobin 16.4 g/dL (11.5-16.0); IMMATURE GRAN ABSOLUTE AUTO 0.07 K/mm3 (0.00-0.10); IMMATURE GRAN PERCENT AUTO 1 % (0-1); LYMPHOCYTES ABSOLUTE AUTO 1.97 K/mm3 (0.84-5.20); LYMPHOCYTES PERCENT AUTO 16 % (21-46); MONOCYTES ABSOLUTE AUTO 0.91 K/mm3 (0.16-1.47); MONOCYTES PERCENT AUTO 8 % (4-13); Mean Corpuscular HGB 30.2 pg (26.0-34.0); Mean Corpuscular Volume 92 fL (80-100); NEUTROPHILS ABSOLUTE AUTO 9.01 K/mm3 (1.96-9.15); NEUTROPHILS PERCENT AUTO 75 % (41-73); RDW Coefficient Variation 12.7 % (11.7-14.2); RDW Standard Deviation 42.2 fL (35.1-46.3); Red Blood Cell Count 5.43 M/mm3 (3.80-5.20); White Blood Cell Count 12.08 K/mm3 (4.00-11.30)
[2022-08-16 12:40] LABS: Salicylate 4.2 mg/dL (2.8-20.0)
[2022-08-16 12:42] LABS: Alanine Aminotransfer (ALT/SGP 30 U/L (12-78); Albumin, Blood 3.8 g/dL (3.4-5.0); Albumin/Globulin Ratio 0.8 (0.8-1.8); Alk Phos 105 U/L (50-136); Anion Gap 8 mmol/L (6-16); Aspartate Aminotrans (AST/SGOT 66 U/L (12-37); Bilirubin, Total 0.4 mg/dL (0.1-1.0); Blood Urea Nitrogen 13 mg/dL (8-24); Bun/Creatinine Ratio 20.1 (12.0-20.0); CO2, Blood 19 mmol/L (21-32); Chloride, Blood 109 mmol/L (98-108); Creatinine, Blood 0.65 mg/dL (0.40-1.00); Ethanol (Alcohol), Blood, Med <3 mg/dL; Globulin, Blood 4.7 g/dL (2.2-4.0); Glomerular Filtration Rate 128 (60-); Glucose, Blood 107 mg/dL (70-99); Potassium, Blood 5.1 mmol/L (3.5-5.5); Sodium, Blood 136 mmol/L (136-145); Total Protein, Blood 8.5 g/dL (6.4-8.2)
[2022-08-16 12:43] LABS: Acetaminophen, Random <2.0 ug/mL (10.0-30.0)
[2022-08-16 12:44] LABS: Source, Urine Clean Catch
[2022-08-16 12:51] LABS: Appearance, Urine Hazy (Clear); Bilirubin, Urine Neg (Neg); Blood, Urine 5+ (Neg); Color, Urine Yellow (P-Yellow); Glucose Qualitative, Urine Neg (Neg); Ketones, Urine 1+ (Neg); Leukocyte Esterase, Urine 3+ (Neg); Nitrite, Urine Neg (Neg); Protein, Urine 2+ (Neg); Specific Gravity, Urine 1.015 (1.003-1.022); Urobilinogen, Urine NORM (Normal)
[2022-08-16 13:27] LABS: Squamous Epithelial Cells Many /hpf (Few)
[2022-08-16 13:29] LABS: Transitional Epithelial Cells Many /hpf (0-Rare)
[2022-08-16 13:30] LABS: Bacteria Mod /hpf
[2022-08-16 13:32] LABS: Mucus Light (0-Heavy)
[2022-08-16 13:34] LABS: U Amphetamine Screen Not Detected; U Barbituate Screen Not Detected; U Benzodiazapine Screen Not Detected; U Buprenorphine Screen Not Detected; U Cannabinoids Screen Not Detected; U Cocaine Screen Not Detected; U Methadone Screen Not Detected; U Methamphetamine Screen Not Detected; U Opiates Screen Not Detected; U Oxycodone Screen Not Detected; U Phencyclidine Screen Not Detected; U Propoxyphene Screen Not Detected
[2022-08-16 14:19] LABS: Mean Platelet Volume 8.8 fL (9.1-12.4); Platelet Count 328 K/mm3 (150-400)
[2022-08-16] MEDS ORDERED: ABILIFY MYCITE5 M2 PO (14:22)
[2022-08-16] MEDS ORDERED: PALI3TAB (14:24)
[2022-08-16] MEDS ORDERED: QUET200 PO (14:26)
== END 2022-08-17 18:15 | disposition home or self-care (01) ==
LOC: ER 10:54 → EOR 10:55
PROVIDERS: Physician Assistant; ADMIT Student in an Organized Health Care Education/Training Program
DX: F31.9 Bipolar disorder, unspecified (principal); Z87.891 Personal history of nicotine dependence; Z88.8 Allergy status to other drugs, medicaments and biological substances; Z79.899 Other long term (current) drug therapy
CPT/HCPCS: 36415; 80053; 81001; 81025; 85025; 85049; 87077; 87086; 87147; 87186; 93005; 93010; 99285-25; A9270; G0378; G0480; J3010; Q3014

== ENCOUNTER 2022-08-28 18:59 | Emergency (ER) | payer OTHER ==
[~2022-08-28] VITALS: Ht 157.5 cm; Wt 90.7 kg
[~2022-08-28 18:59] MED LIST changes: +ABILIFY MYCITE5 M2 PO; +PALI3TAB
[2022-08-28 19:33] LABS: BASOPHILS ABSOLUTE AUTO 0.08 K/mm3 (0.00-0.23); BASOPHILS PERCENT AUTO 1 % (0-2); EOSINOPHILS PERCENT AUTO 2 % (0-6); Hematocrit 45.5 % (33.0-51.0); Hemoglobin 15.4 g/dL (11.5-16.0); IMMATURE GRAN ABSOLUTE AUTO 0.06 K/mm3 (0.00-0.10); IMMATURE GRAN PERCENT AUTO 1 % (0-1); LYMPHOCYTES ABSOLUTE AUTO 2.84 K/mm3 (0.84-5.20); LYMPHOCYTES PERCENT AUTO 25 % (21-46); MONOCYTES ABSOLUTE AUTO 1.17 K/mm3 (0.16-1.47); MONOCYTES PERCENT AUTO 10 % (4-13); Mean Corpuscular HGB Conc 33.8 g/dL (31.5-36.5); Mean Corpuscular Volume 89 fL (80-100); NEUTROPHILS ABSOLUTE AUTO 7.06 K/mm3 (1.96-9.15); NEUTROPHILS PERCENT AUTO 62 % (41-73); Platelet Count 332 K/mm3 (150-400); RDW Coefficient Variation 12.5 % (11.7-14.2); RDW Standard Deviation 41.1 fL (35.1-46.3); Red Blood Cell Count 5.13 M/mm3 (3.80-5.20); White Blood Cell Count 11.41 K/mm3 (4.00-11.30)
[2022-08-28 19:46] LABS: Albumin, Blood 3.8 g/dL (3.4-5.0); Albumin/Globulin Ratio 0.9 (0.8-1.8); Bilirubin, Total 0.1 mg/dL (0.1-1.0); Bun/Creatinine Ratio 9.8 (12.0-20.0); Calcium, Blood 8.8 mg/dL (8.5-10.1); Creatinine, Blood 0.61 mg/dL (0.40-1.00); Globulin, Blood 4.3 g/dL (2.2-4.0); Potassium, Blood 3.7 mmol/L (3.5-5.5); Total Protein, Blood 8.1 g/dL (6.4-8.2)
[2022-08-28 22:20] VITALS: BP 142/93
== END 2022-08-28 22:25 | disposition home or self-care (01) ==
LOC: ER 18:59
PROVIDERS: Student in an Organized Health Care Education/Training Program
DX: R07.9 Chest pain, unspecified (principal); F41.9 Anxiety disorder, unspecified; Z88.8 Allergy status to other drugs, medicaments and biological substances; Z87.891 Personal history of nicotine dependence; Z79.899 Other long term (current) drug therapy
CPT/HCPCS: 71046; 80053; 84484; 85025; 93005; 93010; 99285-25

== ENCOUNTER 2022-10-06 00:30 | Emergency (ER) | payer OTHER ==
[~2022-10-06] VITALS: Ht 160 cm; Wt 81.7 kg
[2022-10-06 03:15] LABS: Source, Urine Clean Catch
[2022-10-06 03:17] LABS: BASOPHILS ABSOLUTE AUTO 0.06 K/mm3 (0.00-0.23); BASOPHILS PERCENT AUTO 0 % (0-2); EOSINOPHILS PERCENT AUTO 1 % (0-6); Hematocrit 43.4 % (33.0-51.0); Hemoglobin 14.8 g/dL (11.5-16.0); IMMATURE GRAN ABSOLUTE AUTO 0.09 K/mm3 (0.00-0.10); IMMATURE GRAN PERCENT AUTO 1 % (0-1); LYMPHOCYTES ABSOLUTE AUTO 2.57 K/mm3 (0.84-5.20); LYMPHOCYTES PERCENT AUTO 16 % (21-46); MONOCYTES ABSOLUTE AUTO 1.49 K/mm3 (0.16-1.47); MONOCYTES PERCENT AUTO 9 % (4-13); Mean Corpuscular HGB 29.5 pg (26.0-34.0); Mean Corpuscular HGB Conc 34.1 g/dL (31.5-36.5); Mean Corpuscular Volume 87 fL (80-100); Mean Platelet Volume 8.8 fL (9.1-12.4); NEUTROPHILS PERCENT AUTO 74 % (41-73); Platelet Count 327 K/mm3 (150-400); RDW Coefficient Variation 13.2 % (11.7-14.2); RDW Standard Deviation 41.1 fL (35.1-46.3); Red Blood Cell Count 5.02 M/mm3 (3.80-5.20); White Blood Cell Count 16.51 K/mm3 (4.00-11.30)
[2022-10-06 03:26] LABS: Bilirubin, Urine Neg (Neg); Blood, Urine 2+ (Neg); Glucose Qualitative, Urine Neg (Neg); Ketones, Urine 1+ (Neg); Leukocyte Esterase, Urine 2+ (Neg); Nitrite, Urine Neg (Neg); Protein, Urine Neg (Neg); Specific Gravity, Urine 1.015 (1.003-1.022); Urobilinogen, Urine NORM (Normal)
[2022-10-06 03:43] LABS: Albumin, Blood 3.8 g/dL (3.4-5.0); Albumin/Globulin Ratio 0.9 (0.8-1.8); Bilirubin, Total 0.6 mg/dL (0.1-1.0); Bun/Creatinine Ratio 9.8 (12.0-20.0); Calcium, Blood 8.8 mg/dL (8.5-10.1); Creatinine, Blood 0.72 mg/dL (0.40-1.00); Globulin, Blood 4.2 g/dL (2.2-4.0); Potassium, Blood 3.7 mmol/L (3.5-5.5)
[2022-10-06 04:07] LABS: Appearance, Urine Hazy (Clear); Color, Urine Yellow (P-Yellow)
[2022-10-06 04:08] LABS: Bacteria Few /hpf; Squamous Epithelial Cells Few /hpf (Few); White Blood Cells, Urine 0-2 /hpf (0-5)
[2022-10-06] MEDS ORDERED: CEPH500 PO (04:48)
[2022-10-06 04:56] VITALS: BP 135/94
== END 2022-10-06 04:56 | disposition home or self-care (01) ==
LOC: ER 00:30
PROVIDERS: Student in an Organized Health Care Education/Training Program
DX: R04.0 Epistaxis (principal); Z88.0 Allergy status to penicillin; Z88.1 Allergy status to other antibiotic agents; Z88.5 Allergy status to narcotic agent; Z91.048 Other nonmedicinal substance allergy status; Z88.6 Allergy status to analgesic agent; Z88.8 Allergy status to other drugs, medicaments and biological substances; I10 Essential (primary) hypertension; J44.9 Chronic obstructive pulmonary disease, unspecified; Z79.899 Other long term (current) drug therapy; Z87.891 Personal history of nicotine dependence
CPT/HCPCS: 80053; 81001; 84703; 85025; 87086; 96374; 99283-25; A9270; J1885

== ENCOUNTER 2022-11-08 07:53 | Emergency (ER) | payer OTHER ==
[~2022-11-08] VITALS: Ht 157.5 cm; Wt 103.4 kg
[~2022-11-08 07:53] MED LIST changes: +CEPH500 PO
[2022-11-08 09:16] VITALS: BP 128/98
[2022-11-08] MEDS ORDERED: IBUP400 PO (09:46)
[2022-11-08] MEDS ORDERED: ACET500 PO (09:46)
[2022-11-08] MEDS ORDERED: Flonase 0.05% N16 GM (09:46)
== END 2022-11-08 09:56 | disposition home or self-care (01) ==
LOC: ER 07:53
DX: J06.9 Acute upper respiratory infection, unspecified (principal); M54.50 Low back pain, unspecified; Z88.8 Allergy status to other drugs, medicaments and biological substances; Z87.891 Personal history of nicotine dependence
CPT/HCPCS: 99283

== ENCOUNTER 2023-01-07 10:44 | Emergency (ER) | payer OTHER ==
[~2023-01-07] VITALS: Ht 157.5 cm; Wt 106.6 kg
[~2023-01-07 10:44] MED LIST changes: +ACET500 PO; +Flonase 0.05% N16 GM; +IBUP400 PO
[2023-01-07 11:20] VITALS: BP 137/100
== END 2023-01-07 12:25 | disposition home or self-care (01) ==
LOC: ER 10:44
DX: R07.9 Chest pain, unspecified (principal); F17.200 Nicotine dependence, unspecified, uncomplicated; Z88.5 Allergy status to narcotic agent; Z88.8 Allergy status to other drugs, medicaments and biological substances
CPT/HCPCS: 93005; 93010; 99285-25

== ENCOUNTER 2023-01-26 17:45 | Emergency (ER) | payer OTHER ==
[~2023-01-26] VITALS: Ht 160 cm; Wt 108.4 kg
[2023-01-26 18:16] VITALS: BP 145/85
[2023-01-26 20:12] LABS: Source, Urine Clean Catch
[2023-01-26 20:16] LABS: Appearance, Urine Hazy (Clear); Bilirubin, Urine Neg (Neg); Blood, Urine 2+ (Neg); Color, Urine Yellow (P-Yellow); Glucose Qualitative, Urine 2+ (Neg); Ketones, Urine 1+ (Neg); Leukocyte Esterase, Urine 2+ (Neg); Nitrite, Urine Neg (Neg); Protein, Urine Neg (Neg); Specific Gravity, Urine 1.015 (1.003-1.022); Urobilinogen, Urine NORM (Normal); pH, Urine 6.5 (5.0-8.0)
[2023-01-26 20:29] LABS: Bacteria Many /hpf; Mucus Light (0-Heavy); Squamous Epithelial Cells Mod /hpf (Few); Transitional Epithelial Cells Few /hpf (0-Rare)
== END 2023-01-26 20:52 | disposition left against medical advice (07) ==
LOC: ER 17:45
PROVIDERS: Student in an Organized Health Care Education/Training Program
DX: M54.9 Dorsalgia, unspecified (principal); Z53.21 Procedure and treatment not carried out due to patient leaving prior to being seen by health care provider
CPT/HCPCS: 81001; 81025

== ENCOUNTER → 2023-02-16 | Outpatient (CLI) | payer OTHER ==
[~2023-02-16] MED LIST changes: +AMOCLA875 PO
== END ==
LOC: LAB 15:30 → LAB SHORT 15:30
PROVIDERS: Registered Nurse Community Health
DX: Z12.4 Encounter for screening for malignant neoplasm of cervix (principal)
CPT/HCPCS: G0145

== ENCOUNTER 2023-05-14 11:51 | Emergency (ER) | payer OTHER ==
[~2023-05-14] VITALS: Ht 157.5 cm; Wt 107.0 kg
[2023-05-14 11:58] VITALS: BP 139/73
== END 2023-05-14 14:43 | disposition left against medical advice (07) ==
LOC: ER 11:51
DX: F23 Brief psychotic disorder (principal); Z53.29 Procedure and treatment not carried out because of patient's decision for other reasons
CPT/HCPCS: 99281

== ENCOUNTER 2023-09-25 18:37 | Emergency (ER) | payer OTHER ==
[~2023-09-25] VITALS: Ht 170.2 cm; Wt 90.7 kg
[2023-09-25 19:10] VITALS: BP 168/97
[2023-09-25 19:38] LABS: Source, Urine Clean Catch
[2023-09-25 19:44] LABS: Appearance, Urine Clear (Clear); Bilirubin, Urine Neg (Neg); Blood, Urine 1+ (Neg); Color, Urine Yellow (P-Yellow); Glucose Qualitative, Urine Neg (Neg); Ketones, Urine Neg (Neg); Leukocyte Esterase, Urine 2+ (Neg); Nitrite, Urine Neg (Neg); Protein, Urine Neg (Neg); Specific Gravity, Urine 1.025 (1.003-1.022); Urobilinogen, Urine NORM (Normal)
[2023-09-25 19:53] LABS: Bacteria Few /hpf; Mucus Light (0-Heavy); Squamous Epithelial Cells Few /hpf (Few)
[2023-09-25 20:09] LABS: Influenza A, PCR NEGATIVE (NEGATIVE); Influenza B, PCR NEGATIVE (NEGATIVE); Resp Syncytial Virus, PCR NEGATIVE (NEGATIVE); SARS-Cov-2 (COVID-19) PCR, MMC NEGATIVE (NEGATIVE)
[2023-09-25] MEDS ORDERED: NITR100CA PO (20:20)
[2023-09-28] MEDS ORDERED: Veetids 500500 MG PO (08:28)
== END 2023-09-25 20:40 | disposition home or self-care (01) ==
LOC: ER 18:37
PROVIDERS: Nurse Practitioner
DX: J06.9 Acute upper respiratory infection, unspecified (principal); N39.0 Urinary tract infection, site not specified; F17.210 Nicotine dependence, cigarettes, uncomplicated
CPT/HCPCS: 0241U; 81001; 81025; 87081; 87086; 87147; 87430; 99283

== ENCOUNTER 2023-10-02 08:19 | Observation (INO) | payer OTHER ==
[~2023-10-02] VITALS: Ht 157.5 cm; Wt 98.4 kg
[~2023-10-02 08:19] MED LIST changes: +NITR100CA PO
[2023-10-02 08:42] VITALS: BP 143/90
[2023-10-02] MEDS ORDERED: Ibuprofen 600 MG Tab PO PRN (09:05)
[2023-10-02] MEDS ORDERED: Oxymetazoline 0.05% Nasal Relief Spray 15mL BTL ONE (09:30)
[2023-10-02 09:46] LABS: Source, Urine Clean Catch
[2023-10-02 09:50] LABS: Appearance, Urine Clear (Clear); Bilirubin, Urine Neg (Neg); Blood, Urine 1+ (Neg); Color, Urine Yellow (P-Yellow); Glucose Qualitative, Urine Neg (Neg); Ketones, Urine Neg (Neg); Leukocyte Esterase, Urine 3+ (Neg); Nitrite, Urine Neg (Neg); Protein, Urine Neg (Neg); Specific Gravity, Urine 1.005 (1.003-1.022); Urobilinogen, Urine NORM (Normal)
[2023-10-02 09:58] LABS: Bacteria Few /hpf; Squamous Epithelial Cells Few /hpf (Few); Transitional Epithelial Cells Rare /hpf (0-Rare)
[2023-10-02] MEDS ORDERED: QUEtiapine Fumarate 50 MG TAB PO PRN (10:05)
[2023-10-02 10:39] LABS: Influenza A, PCR NEGATIVE (NEGATIVE); Influenza B, PCR NEGATIVE (NEGATIVE); Resp Syncytial Virus, PCR NEGATIVE (NEGATIVE); SARS-Cov-2 (COVID-19) PCR, MMC NEGATIVE (NEGATIVE)
[2023-10-02 10:52] LABS: BASOPHILS ABSOLUTE AUTO 0.06 K/mm3 (0.00-0.23); BASOPHILS PERCENT AUTO 1 % (0-2); EOSINOPHILS ABSOLUTE AUTO 0.15 K/mm3 (0.00-0.68); EOSINOPHILS PERCENT AUTO 1 % (0-6); Hematocrit 46.9 % (33.0-51.0); Hemoglobin 15.4 g/dL (11.5-16.0); IMMATURE GRAN ABSOLUTE AUTO 0.05 K/mm3 (0.00-0.10); IMMATURE GRAN PERCENT AUTO 0 % (0-1); LYMPHOCYTES ABSOLUTE AUTO 2.12 K/mm3 (0.84-5.20); LYMPHOCYTES PERCENT AUTO 17 % (21-46); MONOCYTES ABSOLUTE AUTO 0.85 K/mm3 (0.16-1.47); MONOCYTES PERCENT AUTO 7 % (4-13); Mean Corpuscular HGB 29.1 pg (26.0-34.0); Mean Corpuscular HGB Conc 32.8 g/dL (31.5-36.5); Mean Corpuscular Volume 89 fL (80-100); Mean Platelet Volume 8.8 fL (9.1-12.4); NEUTROPHILS ABSOLUTE AUTO 9.61 K/mm3 (1.96-9.15); NEUTROPHILS PERCENT AUTO 75 % (41-73); Platelet Count 304 K/mm3 (150-400); RDW Coefficient Variation 13.8 % (11.7-14.2); RDW Standard Deviation 44.9 fL (35.1-46.3); White Blood Cell Count 12.84 K/mm3 (4.00-11.30)
[2023-10-02] MEDS ORDERED: Nicotine 21 MG PATCH TOP ONE (11:05)
[2023-10-02 11:08] LABS: Bun/Creatinine Ratio 7.2 (12.0-20.0); Calcium, Blood 8.2 mg/dL (8.5-10.1); Creatinine, Blood 0.56 mg/dL (0.40-1.00); Potassium, Blood 3.6 mmol/L (3.5-5.5)
[2023-10-02] MEDS ORDERED: Cephalexin Monohydrate 500 MG Cap PO SCH (21:00)
[2023-10-02] MEDS ORDERED: Oxymetazoline 0.05% Nasal Relief Spray 15mL BTL SCH (21:00)
== END 2023-10-02 14:52 | disposition other institution (70) ==
LOC: ER 08:19 → EOR 08:20 → EDBEDREQ 12:42 → EOR 14:52
PROVIDERS: ADMIT Emergency Medicine
DX: F20.9 Schizophrenia, unspecified (principal); F29 Unspecified psychosis not due to a substance or known physiological condition; N30.00 Acute cystitis without hematuria; F31.9 Bipolar disorder, unspecified; Z88.8 Allergy status to other drugs, medicaments and biological substances; Z79.899 Other long term (current) drug therapy
CPT/HCPCS: 0241U; 36415; 80048; 81001; 81025; 85025; 87086; 87147; 99285; A9270; G0378

== ENCOUNTER 2023-10-02 12:22 | Inpatient (IN) | payer OTHER ==
[~2023-10-02] VITALS: Ht 157.5 cm; Wt 217.0 kg
[2023-10-02] MEDS ORDERED: LORazepam 2 MG Tab PO PRN ×2 (13:35)
[2023-10-02] MEDS ORDERED: OLANZapine ODT 10 MG Tab MM PRN (13:35)
[2023-10-02] MEDS ORDERED: RisperiDONE 1 MG Tab PO PRN (13:40)
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
[2023-10-02 19:55] VITALS: BP 132/87
[2023-10-02] MEDS ORDERED: Cephalexin Monohydrate 500 MG Cap PO SCH (21:00)
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
[2023-10-03] MEDS ORDERED: Nicotine 21 MG PATCH TOP SCH (09:00)
[2023-10-03] MEDS ORDERED: Nicotine Polacrilex 2 MG Gum PO PRN (11:15)
[2023-10-03] MEDS ORDERED: Ondansetron 4 MG SoluTab SL ONE (12:45)
[2023-10-03] MEDS ORDERED: Acetaminophen 325 MG TABLET PO PRN (17:05)
[2023-10-03] MEDS ORDERED: Paliperidone 1.5 MG TAB.ER.24 PO SCH (21:00)
[2023-10-04 08:28] VITALS: BP 134/86
[2023-10-04] MEDS ORDERED: Ondansetron 4 MG TAB PO PRN (15:20)
--- NOTE | 2023-10-04 15:56 | NUR ---
Praveen attempted to contact Peg Mouse (i.e. pt mother) by phone on at 1556 in order to setup a family meeting as requested by pt. Peg did not answer call. Praveen will attempt to contact Peg on another date.
--- NOTE | 2023-10-04 16:00 | NUR ---
Praveen attempted to reach pt ACT worker Luis Angel Maykel at [phone] approximately 1545pm. Sw left a vm.
--- NOTE | 2023-10-04 16:04 | NUR ---
Pt could not remember name of direct payee worker of [employer]. Pt advised Sw if the provider could find out who direct worker is and discuss with them if SSI and foodstamps would be continued, due to pt having concerns of discontinuation. Sw attempted to reach payee by contacting number [phone] at approximately 1604pm. Sw will attempt to reach payee on another date.
--- NOTE | 2023-10-04 23:15 | NUR ---
PATIENT ALERT AND ORIENTED X 4. VERY WITHDRAWN. LITTLE EYE CONTACT WITH THIS RN OR HEDDLE MACHINE OPERATOR. COMPLIANT WITH MEDICATIONS AT HS. WOKE AROUND 2230 AND TOOK A SHOWER. STILL FEELING ANXIOUS SHE ASKED FOR ATIVAN AND RISPERDAL WHICH WAS GIVEN AND SHORTLY AFTER, FELL ASLEEP. WILL CONTINUE CLOSE MONITORING.
[2023-10-04 23:37] VITALS: BP 111/64
--- NOTE | 2023-10-05 04:42 | NUR ---
Patient slept through most of the night from about 2230 through current time and is still sleeping. (approx 6 sleep hours so far). She did request both risperdal as well as ativan as she was getting anxious and stated this was her normal routine with her bedtime medications. Patient was very withdrawn early in evening and difficult to communicate with. denies any SI, HI, AH, VH
--- NOTE | 2023-10-05 08:38 | NUR ---
Praveen attempted to contact Luis Angel Brar regarding assistance for discharge of pt due to pt expressing she is in the ACT of [employer] and works with Luis Angel Brar. Praveen attempted to contact Ed by [phone] at 0836am.
[2023-10-05 08:52] VITALS: BP 151/81
--- NOTE | 2023-10-05 09:41 | NUR ---
Praveen received a call from Erma (i.e. ACT/[employer] therapist) from . Erma advised that pt was kicked out of [facility] (i.e. hotel that partnerships with [employer]) due to consistent angry outburst based behaviors. Erma advised that pt might have be on [facility] waiting list. Praveen will attempt to contact [facility] for verfication. Erma provided sw with emails of [employer] and pt [employer] worker. Praveen contacted [facility] and [employer] by email in order to assist pt in reviewing if her SSI will continue and if the pt has a brim rounder with [facility].
--- NOTE | 2023-10-05 10:43 | NUR ---
PT DENIED SI, HI AND VISUAL HALLUCINATIONS BUT ENDORSED POSSIBLE AUDITORY HALLUCINATIONS, " HEAR VOICES BUT I'M NOT SURE IF IT'S PEOPLE IN THE UNIT OR NOT." SHE HAS BEEN PLEASANT, COOPERATIVE WITH CARE AND OUT IN THE MILIEU. PHYSICAL ASSESSMENT WNL.
[2023-10-05 19:23] VITALS: BP 158/100
[2023-10-05] MEDS ORDERED: HydrOXYzine Pamoate 50 MG Cap PO SCH (21:00)
--- NOTE | 2023-10-06 04:05 | NUR ---
Patient A&OX4, pleasant tonight and enjoying the milieu in the TV room with peers. Requested again Ativan and Risperdal at HS as she states these were her HS meds prior. No complaints of pain or discomfort, and no further nausea. States no SI/HI or AVH. Bed early. Sleep time 6 hours at this time.
[2023-10-06 08:17] VITALS: BP 130/83
[2023-10-06] MEDS ORDERED: Paliperidone Palmitate 234 MG/1.5 ML SYR IM ONE (09:00)
--- NOTE | 2023-10-06 12:45 | NUR ---
Praveen participated in a team meeting with pt and their ACT worker (i.e. Luis Angel Brar) from 0934 to 0954am. Pt expressed that she does not have any friend or family support to go to for housing after discharge. Pt advised that she is open to living in any county that provides housing in [place] and that she likes [place]. Praveen educated pt that in the event she would like to live in a county outside of her current insurance coverage, that she would need to go to a [facility] [employer] [employer] [facility] office of that county and complete an insurance transference application. Luis Angel advised that he will communicate with the ACT team in order to review of alternative housing options for pt.
--- NOTE | 2023-10-06 14:14 | NUR ---
PT VISITOR REQUEST PT TO NURSE STATION REQUESTING STAFF TO CALL MOM TO INFORM OF VISITING HOURS. SAIGE LOPEZ MOUSER [phone]
--- NOTE | 2023-10-06 15:30 | NUR ---
SPOKE WITH PT MOM TO INFORM OF PT VISITING HOURS. MOM DID NOT SCHEDULE VISIT AT THIS TIME.
--- NOTE | 2023-10-06 18:27 | NUR ---
SHIFT SUMMARY PT AWAKE AND ORIENTED TO PERSON AND SITUATION. INSIGHT IS POOR BUT SHE EXPRESSED CONCERN FOR PLAN AFTER DISCHARGE. EYE CONTACT IS APPROPRIATE. SPEECH HAS BEEN MORE CLEAR THIS SHIFT. PT IS PLEASANT AND COPPERATIVE. SHE DEIED SI/AH/VH. PT HAS BEEN UP TO SHOWER, GROUP AND MEALS. SHE IS ACTIVELY PARTICIPATING. FIRST DOSE INVEGA GIVEN IN L DELTOID. PT TOLERATED WELL. SHE DENIES ANY NEEDS AT THIS TIME.
--- NOTE | 2023-10-07 04:29 | NUR ---
Started shift with a beginning migraine headache. Tylenol and ice pack given with good result. less participation in [employer] that previous night. Patient slept through the night after vistaril and her requested ativan and risperdal. No complaints of SI,HI or AVH overnight.
--- NOTE | 2023-10-07 16:04 | NUR ---
Eduardo returned a call to ACT provider Erma of pt at 1400pm. Erma advised sw that the pt does not qualify for "intermediate teacher services". Erma and eduardo agreed to search for a [facility] for pt. Eduardo contacted [facility] at 1454pm and remained marketing rotation associate until 1458pm. Upon call, eduardo spoke with Angelina. Angelina reviewed documentation needed for review. Eduardo discussed information with pt. Pt completed an COSMO in order for eduardo to fax required documentation needed for [facility]. Eduardo emailed ACT team (i.e. Erma and Luis Angel Brar) at 1547pm regarding [facility] reviewing pt for placement eligibility.
--- NOTE | 2023-10-07 17:14 | NUR ---
SHIFT SUMMARY PT UP AND AWAKE BEFORE LUNCH. DENIES SI. WISHES THAT HER MOTHER WOULD BE MORE SUPPORTIVE IN HER MEDICAL CONDITION. HAD NICOTINE GUM TODAY, SHOWERED BEFORE DINNER AND STATED SHE NEEDED TO NAP. STATES AT TIMES SHE HEARS VOICES BUT NOT ALL THE TIME AND NOT ANY CLEAR MESSAGES. SHE STATES " I CAN TAKE CARE OF MYSELF TO BE GOOD" AND " TO BELIEVE IN MYSELF" WILL CONTINUE TO MONITOR.
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
[2023-10-07] MEDS ORDERED: RisperiDONE 0.25 MG Tab PO SCH (21:00)
--- NOTE | 2023-10-08 17:29 | NUR ---
SHIFT SUMMARY HAS BEEN IN BED MOST OF THE DAY. DID PARTICIPATE IN GROUP THIS AFTERNOON UNTIL SHE GOT MAD IN THE CARD GAME AND LEFT. CAME OUT AND DEMANDED SHOWER ITEMS AND SCRUBS AND TOWELS. SHE THEN GOT INTO THE SHOWER. HAD A PHONE CALL WITH HER MOTHER THAT ENDED WITH HER YELLING AT HER MOTHER AND HANGING UP ON HER. DID NOT WANT TO TALK TO DO INTERVIEW TODAY. ANGRY DEMEANOR TODAY IN THE AFTERNOON.
[2023-10-08 19:30] VITALS: BP 132/83
--- NOTE | 2023-10-09 16:08 | NUR ---
SHIFT SUMMARY HAS BEEN SLEEPING MOST OF THE DAY. CAME OUT TO REQUEST NICOTINE GUM AND TO USE THE PHONE AT 1500. DENIED SI AH AT THIS TIME. VOICE HAS UNDERTONE OF ANGER PRESENT SHE WAS UNABLE TO REACH MOTHER BY PHONE. SHE THEN CALLED HER PREVIOUS HOME ([facility]) TO LEAVE A MESSAGE FOR HER BELONGINGS TO BE GATHERED AND GIVEN TO HER MOM. WILL CONTINUE TO MONITOR.
--- NOTE | 2023-10-10 10:15 | NUR ---
PT APPEARED TO BE SLEEPING MOST OF THE MORNING, SHE AWAKENS TO VERBAL STIMULI BUT REFUSED BREAKFAST A FEW TIMES, PREFERS TO LAY IN BED. PT TAKES AM MEDICATION AND ALSO REQUESTS NICOTINE GUM, ENCOURGED PT TO STRAIGHTEN UP SUPPLIES IN ROOM AND THROW AWAY ANY TRASH, STEPPED AWAY FOR A FEW MOMENTS AND WHEN RETURNED PT WAS CLEANING UP TOILETRIES AND THROWING AWAY TRASH, DENIES ANY FURTHER NEEDS AT THIS TIME. APPEARS FLAT AND WITHDRAWN THIS MORNING.
--- NOTE | 2023-10-10 12:26 | NUR ---
PT CHOSE NOT TO ENGAGE IN MILIEU OR GROUP ACTIVITIES THIS MORNING, DESPITE ENCOURAGEMENT BY STAFF. SHE DID COME TO LUNCH ROOM AND ATE LUNCH, SHE DID NOT LIKE THE HOT OFFERINGS INSTEAD ATE PREPARED SANDWICH, CHIPS, CHEESE AND FRUIT, BUT ATE WELL. MINIMAL INTERACTION AND THEN RETURNED TO HER ROOM.
[2023-10-10 12:34] VITALS: BP 148/89
--- NOTE | 2023-10-11 09:20 | NUR ---
Praveen contacted [facility] by phone and spoke with Angelina from 0805am to 0887am. Angelina advised that their adminstrative staff who reviews referrals was out sick during the week of 10/02-10/09/2023 and will contact the upon their return regarding pt. Praveen contacted pt ACT therapist Erma and preparer samples and repairs Luis Angel Brar to review update received by Angelina during the time of 0856am-912am. Erma advised that ACT will support reviewing placement options for pt in the event needed once pt discharges from [facility].
--- NOTE | 2023-10-11 18:19 | NUR ---
SHIFT SUMMARY PT AxOx4. PLEASANT AND COOPERATIVE WITH CARE. PT REPORTS FEELING "GOOD, BUT TIRED" TODAY. SHE ALSO REPORTS FEELING ANXIOUS T/O THE DAY, BUT D/T SITUATIONAL CIRCUMSTANCES, SUCH DISCHARGE CONCERNS AND FEAR OF BEING HOMELESS. THERAPEUTIC COMMUNICATION PROVIDED AND PT REPORTED FEELING BETTER AND APPRECIATIVE OF CONVERSATION. [facility], INTAKE STAFF EXPECTED TOMORROW FOR FULL EVAL. PT REPORTS AUDIO AND VISUAL HALLUCINATION, BUT DENIES ANYTHING THREATENING. PT DENIES SI/HI. PT HAS PARTICIPATED MINIMALLY IN GROUPS TODAY. NOTED HER GETTING EASILY AGITATED WITH PEERS AT TIMES. PT HAS BEEN USING APPROPRIATE COPING TOOLS AND WALKING AWAY FROM AGGRAVATING SITUATIONS. PT IS CURRENTLY LYING IN HER BED, DENIES ANY NEEDS AT THIS TIME.
--- NOTE | 2023-10-11 19:30 | NUR ---
NURSE ASSESSMENT PT LYING IN BED AWAKE, WHEN APPROACHED PT REPORTS NOT UNDERSTANDING WHY SHE GETS KICKED OUT OF PLACES. PT REPORTS SHE DOES NOT KNOW WHAT MAKES PEOPLE WANT HER TO LEAVE THEIR HOME AND CAUSE HER TO BE HOMELESS. SHE ALSO REPORTS SHE IS ALWAYS COMPLIANT WITH HER MEDS, MAKING THIS MORE CONFUSING TO HER. WE DISCUSSED THE NEW MEDICATION OF INVEGA AND HOPEFUL FOR GREAT RESULTS. PT REPORTS TAKING THIS MEDICATION IN THE PAST AND WAS SUCCESSFUL. PT IS HOPEFUL FOR TOMORROWS INTAKE TO [facility]. WILL CONTINUE TO MONITOR.
--- NOTE | 2023-10-11 22:30 | NUR ---
INFORMED BY STAFF THAT PT IN ROOM CARRYING CONVERSATION WITH SELF UNSURE OF CONVERSATION CONTENT.
--- NOTE | 2023-10-12 18:30 | NUR ---
SHIFT SUMMARY PT AxOx4. PT HAD AN EMOTIONAL OUTBURST THIS AM DURING BREAKFAST. SHE SEEMED TO GET TRIGGERED BY AN MHA BEING TOO CLOSE WHILE OBTAINING VITAL SIGNS. THE PATIENT BEGAN ESCALATING HER VOICE AND USING PROFANITIES TOWARD THE STAFF AND PEERS SITTING AT THE DINING ROOM TABLE. THE PATIENT WAS ESCORTED BACK TO HER ROOM. THERAPEUTIC COMMUNICATION PROVIDED AND PRN ANXIETY MED OFFERED. THE PATIENT DID DE-ESCALATE WITHIN THE HOUR. THE PATIENT'S MOOD CONTINUED TO REMAIN "ON EDGE" EVIDENCED BY FIDGETY MOVEMENTS, AND SHARP/SHORT TONE OF VOICE T/O THE SHIFT. PT DECLINES TO PARTICIPATE IN GROUP TODAY AND SHE MOSTLY KEPT TO HERSELF IN HER ROOM AND TRIED TO SLEEP. PT IS CURRENTLY SITTING IN VISITOR ROOM DOING INTERVIEW WITH ELIGIBILITY RESTAURANT FRONT MANAGER FOR [facility] ([facility]) AT THIS TIME. PT DENIES ANY NEEDS AT THIS TIME.
[2023-10-12] MEDS ORDERED: RisperiDONE 1 MG Tab PO SCH (21:00)
--- NOTE | 2023-10-13 00:12 | NUR ---
Ativan and Tylenol PT REQUESTS TO HAVE ATIVAN AND TYLENOL SCHEDULED AT BEDTIME "SO I DON'T HAVE TO THROW A FIT TO GET IT". WILL PASS ON TO DAY SHIFT NURSE.
--- NOTE | 2023-10-13 01:28 | NUR ---
REASSESS ATIVAN PT IS SLEEPING QUIETLY IN HER BED. NO FURTHER AGITATION OBSERVED AT THIS TIME.
--- NOTE | 2023-10-13 04:29 | NUR ---
SHIFT SUMMARY PT CAME TO DESK TO REQUEST SHOWER AT BEGINNING OF SHIFT. SHOWER SUPPLIES, TOWELS, NEW SCRUBS AND SOCKS WERE LAID OUT FOR HER. SHE WAS ASLEEP WHEN THOSE THINGS WERE DELIVERED. WHEN SHE WOKE UP SHE YELLED AT STAFF FOR NOT COMING TO GET HER SHOWERED. SHE THEN SAW TOWELS AND CLOTHES AND CALMED DOWN. THIS RN WAS ADMINISTERING HER MEDS AND SAID, "NOW GET THE FUCK OUT OF HERE" SHE REQUESTED ATIVAN SAYING "I WANT IT EVERY NIGHT SO I DON'T HAVE TO THROW A FIT TO GET IT". ATIVAN GIVEN FOR MASS SCORE. ALSO C/O EAR PAIN BILATERALLY FOR WHICH SHE ASKED FOR EAR DROPS, BUT ACCEPTED TYLENOL. SHE ASKED TO CALL HER MOM ABOUT MIDNIGHT AND COMPLAINED THAT NOBODY HAD HEARD OF EAR DROPS AND NO ONE WAS TAKING CARE OF HER. SHE WAS YELLING ON THE PHONE AND WAS ASKED TO BE QUIETER TO WHICH SHE SAID TO HER MOTHER, "I HAVE TO GO, THEY ARE MAKING ME GET OFF THE PHONE. ONCE PT WENT TO SLEEP SHE HAS BEEN SLEEPING SINCE WITHOUT COMPLAINTS OR REPORTED NEEDS. PT CONT TO HAVE A & V HALLUCINATIONS. SHE ADMITS THIS AND IT IS EVIDENT THAT SHE IS TALKING TO SOMEONE WHO IS NOT THERE.
[2023-10-13 10:13] VITALS: BP 128/79
--- NOTE | 2023-10-13 17:18 | NUR ---
SHIFT SUMMARY PT AxOx4. COOPERATIVE WITH CARE FOR MOST OF THIS SHIFT. WHEN ASKED ABOUT THE PATIENT'S MOOD TODAY SHE STATED "BAD, THEN WORSE, THEN GOOD THEN BAD AGAIN. KIND OF LIKE A ROLLER COASTER, BUT I AM OKAY RIGHT NOW." PT'S AGGRESSIVE BEHAVIORS SEEM TO BE ON AND OFF THIS SHIFT, BUT USUALLY SOMEWHAT MILD. EXAMPLES INCLUDE- ELEVATING HER VOICE/YELLING, CURSING, MAKING INAPPROPRIATE COMMENTS R/T PEERS BOTHERING HER. PT HAS COMMUNICATED WITH THIS RN RESPECTFULLY TODAY AND HAS TAKEN HER MEDS PRESCRIBED. SHE IS CURRENTLY REPORTING THAT SHE IS STRESSED ABOUT HER DC PLAN AND IS WORRIED ABOUT POTENTIAL PLACEMENT OUT OF TOWN. THERAPEUTIC COMMUNICATION PROVIDED AND PT RESPONDED CALMLY AND POLITELY IN OUR INTERACTION. PT IS CURRENTLY SITTING IN DINNER ROOM EATING WITH PEERS. SHE IS EXPECTING HER SECOND INVEGA INJECTION TOMORROW. DC PLAN STILL IN PROGRESS.
[2023-10-13 20:59] VITALS: BP 134/79
--- NOTE | 2023-10-13 23:37 | NUR ---
PATIENT C/O EXTREME ANTIEY AND AGITATION. SHE REQUESTED A PRN ATIVAN TO SETTLE DOWN. RN GAVE PER ORDERS, PATIENT SLEEPING WITHOUT ANY ISSUES OR BEHAVIORS.
--- NOTE | 2023-10-14 01:59 | NUR ---
Patient sleeping without noted issues or behaviors
--- NOTE | 2023-10-14 06:07 | NUR ---
pATIENT UP EARLY TODAY 6AM. SHE REQUESTED TO USE THE PHONE TO CALL HR MOTHER STATING "SHE SHOULD BE UP GETTING READY FOR WORK" THERE WAS NO ANSWER. SHE THEN REQUESTED THE NUMBER FOR "[employer]", SHE IS LOOKING INTO A PAYEE OR SHE HAS ONE ALREADY. SHE LEFT A MESSAGE WITH [facility] CALL BACK NUMBER.
--- NOTE | 2023-10-14 07:45 | NUR ---
PT REQUESTING PHONE TO CALL MOM. ALLOWED AT THIS TIME SHE REPORTED NEEDING TO TALK TO HER MOM BEFORE WORK. PT UNABLE TO CONTACT MOM AT THIS TIME. PT THEN TO BREAKFAST.
--- NOTE | 2023-10-14 07:59 | NUR ---
PT HOSTILITY PT REQUESTED TO USE PHONE TO CALL MOM, DURING CALL PT BEGAN BECOMING LOUD AND CURSING TO MOM REGARDING NEEDING TO TALK TO MOM AND MOM NOT BEING THERE FOR HER. ONCE PT OFF PHONE SHE RETURNED TO HER ROOM. I FOLLOWED HER TO TRY TO CONSOLE HER. I OPENED DOOR, PT BEGAN YELLING TO GET THE F* OUT OF THERE THAT SHE HAS DONE NOTHING TO ME, AND SHE JUST WANTED TO TALK TO HER MOM. I INFORMED PT THAT I WAS JUST THERE TO SUPPORT HER AND SEE IF I COULD DO ANYTHING TO HELP. PT CONTINUED TO TELL ME TO LEAVE. I WILL REASSESS AFTER GIVING PT TIME TO CALM.
--- NOTE | 2023-10-14 08:37 | NUR ---
PT INQUIRING IF SW IN TODAY. PT REPORTING SHE IS TOO OLD TO LIVE IN ADULT [facility] HOME AND SHE IS REQUIRED TO LIVE IN A MOTEL. PT INFORMING THAT SW CAN READ THIS NOTE WHEN AVAILABLE AND HEADED TO ROOM. PT GIVEN ATIVAN PER PT REQUEST AND MASS SCORE OF 21
[2023-10-14] MEDS ORDERED: Paliperidone Palmitate 156 MG/ML SYR IM ONE ×2 (10:00→16:00)
--- NOTE | 2023-10-14 10:11 | NUR ---
PT SLEEPING AT THIS TIME.
[2023-10-14 11:45] VITALS: BP 135/77
--- NOTE | 2023-10-14 12:00 | NUR ---
PT UP TO LUNCH IN THE DINING ROOM. IMMEDIATELY AFTER COMPLETING HER MEAL SHE RETURNED TO BED.
--- NOTE | 2023-10-14 15:30 | NUR ---
PT AT NURSE STATION TO RETURN CALL TO [facility] WORKER ED. CW ED REPORTS HE WILL SEE PT TOMORROW IN A.M.
--- NOTE | 2023-10-14 16:20 | NUR ---
At approximately 1307pm sw attempted to contact pt payee of [employer] due to pt request for sw to speak with payee regarding funds and if extra funds could be placed in order for pt to afford living in a hotel. Pt could not remember name of payee. Number used to contact payee is [phone].
--- NOTE | 2023-10-14 16:22 | NUR ---
Sw provided pt with resources that educates about penitentiary care.
--- NOTE | 2023-10-14 16:50 | NUR ---
2ND DOSE OF INVEGA COMPLETED TO R DELT.
--- NOTE | 2023-10-14 18:05 | NUR ---
SHIFT SUMMARY PT A&OX4, INITIALLY AGITATED THIS A.M. (MASS SCORE 21, MEDICATED W/ ATIVAN) AND MORE PLEASANT THIS AFTERNOON. PT REPORTS BEING CONCERNED ABOUT UPCOMING DISCHARGE AND LIVING SITUATION. PT USE OF PHONE SEVERAL TIMES TODAY FOR CALLS TO MOM AND [facility] ED WHO REPORTS WILL BE IN TOMORROW TO SEE PT. PHONE MEETING W/ [facility] TODAY W/ SW. PROVIDER REQUESTS TO RE-EVALUATE PT NEXT WEEK FOR DISCHARGE FOLLOWING TODAYS SECOND DOSE OF INVEGA. PT CONTINUES TO REQUEST ATIVAN. EDUCATED PT ON RISK FOR ADDICTION AND NOT AVAILABLE WHEN DISCHARGED.
[2023-10-14 19:52] VITALS: BP 145/90
--- NOTE | 2023-10-15 13:38 | NUR ---
Eduardo witnessed pt complete an application for [facility] placement on 10/15/2023 in the morning. After application completion, eduardo contacted two [facility] in [facility] due to pt advising that she would like to stay in [place] for placements. Both [facility] advised that the application has not populated within their system as of yet and are needed in order for pt to be able to have her scheduled interviews. Due to sw being off on weekends, eduardo has emailed the weekend charge nurses, regarding for the [facility] to follow up with both [facility] to ensure that the pt application has been reviewed before interview. Both [facility] have allowed for pt interview to take place via phone call. In the event the [facility] do not, call pt for interview, staff is aware to contact the homes for the following times and numbers below: Interviews take place on 10/17/2023 Home 1: Time 5:00pm With Faye Contact #: [phone] Home 2: Time 6:00pm With Sara Contact #: [phone]
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
[2023-10-15 18:21] VITALS: BP 127/82
--- NOTE | 2023-10-15 21:33 | NUR ---
Patient very agitated this shift. CN spent 2 hours with her to calm and support her. Active listening and coping skills taught. She was compliant with assessment, care and medications. She is very anxious regarding her discharge. She raised her voice several times this shift out by the nursing station then returned to her roon. CN gave her positive reinforcement for returning to her room when she was cued that she was esculating. She was compliant with CN.
--- NOTE | 2023-10-16 00:10 | NUR ---
Patient still awake C/O of "rasing thoughts" and insomnia. She has been agitated as demonstrated by raising her voice and stomping her feet to and from the nurses station. She has been very anxious = 9/10 regarding discharge and future planning. She is agreeable to prn ativan. Patient appolgizes for her behaviors. CN praises her for taking a time out, going back to her room and asking for help.
--- NOTE | 2023-10-16 02:04 | NUR ---
Patient fell a sleep around 130am. No noted issues or behaviors, i will continue to monitor.
[2023-10-16 08:58] VITALS: BP 128/92
[2023-10-16] MEDS ORDERED: Paliperidone 1.5 MG TAB.ER.24 PO SCH (09:35)
--- NOTE | 2023-10-16 10:29 | NUR ---
ASSUMED CARE @0715. PT IN BED RESTING INTIL BREAKFAST. PT WITH ESCALATING BEHAVIORS THIS WEEK. PT HAS YELLED PROFANITIES AT SEVERAL STAFF. SHE HAS STOMPED IN THE HALLWAYS AND SLAMMED DOORS. BEHAVIORS HAVE BEEN FRIGHTENING OTHER PATIENTS. THIS RN SPOKE WITH PT ABOUT THESE BEHAVIORS. PT RIGHTS AND RESPONSIBILITIES HANDOUT AND THE [facility] HANDOUT THAT OUTLINED EXPECTED BEHAVIORS REVIEWED WITH PT. THIS RN ACTIVELY LISTENED TO PT CONCERNS AND ANSWERED QUESTIONS. PT AND RN CAME TO AN AGREEMENT THAT IF EITHER STAFF OR PT FEELS THAT BEHAVIORS ARE ESCALATING WE CAN HOLD UP ONE FINGER. THIS WILL SIGNAL THAT PT NEEDS TO TAKE A BREAK TO ROOM OR SENSORY ROOM AND STAFF WILL ATTEMPT TO MEET NEEDS. PT VERBALIZED UNDERSTANDING
--- NOTE | 2023-10-16 18:06 | NUR ---
SHIFT SUMMARY PT AWAKE, ALERT AND ORIENTATED TO PERSON, PLACE, AND SITUATION. SHE HAD A CALM DAY WITHOUT ANY ELEVATED BEHAVIORS. SHE WAS UP TO MEALS AND SHOWER. SHE PARTICIPATED IN GROUP. EYE CONTACT AND SPEECH HAVE BEEN APPROPRIATE. SHE DENIED AVH. SHE DID NOT APPEAR TO RESPOND TO INTERNAL STIMULI. SHE SHARED FEELINGS OF FRUSTRATION ABOUT DISCHARGE AND CURRENT RELATIONSHIP WITH MOTHER. SHE WAS ABLE TO CALMLY LET HER NEEDS KNOWN THROUGHOUT THE DAY. PT ENCOURAGED TO SHARE FEELINGS AND REASSURED THAT STAFF CARES AND IS WORKING ON A SAFE DISCHARGE PLAN.
--- NOTE | 2023-10-16 23:58 | NUR ---
Jaylene is resting quietly, eyes closed. Appears comfortably sleeping. will continue close monitoring
--- NOTE | 2023-10-17 04:43 | NUR ---
Jaylene had a quiet night. Currently her sleep hours are 7 hours up to this point. She approached the desk around 1999 and explained that she felt like she was going to begin ramping up, and asked if she could get her HS meds early. When this RN came into her room, the patient was pleasant and very grateful for receiving her meds when she felt she needed them. No SI, HI or AVH noted on brief assessment. will continue close monitoring
[2023-10-17 11:30] VITALS: BP 126/69
--- NOTE | 2023-10-17 16:29 | NUR ---
SHIFT SUMARRY PT AWAKE, ALERT, AND ORIENTATED TO PERSON, PLACE, SITUATION. PT HAS BEED CALM AND COOPERATIVE WITH CARE. SHE HAD ONE EPISODE OF INCREASED ANXIETY THIS AFTERNOON. SHE APPROACHED THE NURSES STATION AND WAS ABLE TO VERBALIZE THAT THE AM/FM HEADPHONES WERE CONFUSING AND FRUSTRATING HER AND REPORTED AH. SHE WAS ABLE TO VERBALIZE NEED FOR TYLENOL AND ATIVAN. SHE WAS ABLE TO DEESCALATE HERSELF AND RETURN TO HER ROOM WHILE WAITING FOR MEDICATIONS. THIS RN OFFERED ENCOURAGEMENT FOR HER SELF MANAGEMENT. THIS IS NOT THE FIRST TIME PT HAS ESCALATED WHILE WEARING HEADPHONES AND USE MAY NEED TO BE MONITORED. PT UP TO SHOWER, MEALS, AND SENSORY ROOM. SPEECH AND EYE CONTACT APPROPRIATE. PT DECLINED [facility] INTERVIEW. DISCUSSED WITH DR. SAEZ AND HE IS IN AGREEMENT. PT DENIES ANY CURRENT NEEDS. WILL CONTINUE POC UNTIL NOC REPORT
[2023-10-17 21:39] VITALS: BP 117/74
--- NOTE | 2023-10-18 02:56 | NUR ---
Patient woke up with night chang and feeling anxious. She wanted to talk about her discharge and future planning. I remined her it was 2 am and social secretary were not available unti much later this morning. She requested a PRN ativan to help settle her down and go back to sleep. CN medicated per orders.
[2023-10-18 08:08] VITALS: BP 120/84
--- NOTE | 2023-10-18 09:50 | NUR ---
Sw attempted to reach pt provider of [facility] [employer] by phone at 0943am from number [phone], per pt request to review if it is possible for pt to receive an increase in SSI. Praveen left a vm. Praveen will attempt to contact [facility] [employer] at another time.
--- NOTE | 2023-10-18 12:50 | NUR ---
Praveen contacted [facility] [employer], per pt request to verify if her SSI could be increased for extra money when attempting to live in motels after discharge. More advised that pt currently receives the maximum of SSI that she could qualify for (i.e. $943). Praveen spoke with More via phone from 1217pm to 1222pm at [phone].
--- NOTE | 2023-10-18 12:53 | NUR ---
Praveen received an update from staff that pt denied 2 scheduled appts with [facility] of 10/17/2023. Praveen contacted ACT transition mgr Luis Angel Brar at 12:43pm and left a vm. Praveen contacted pt ACT therapist Erma Mcnulty by phone [phone] and advised that the team has scheduled for pt to discharge 10/19/2023. Erma advised that Luis Angel Brar is attempting to communicate with the [facility] in order to verify if pt can go there after discharge. Erma advised that Luis Angel Brar will contact [facility] once he has an update regarding the [facility] and that in the event Ed is not able to black pickler pt for discharge, pt has OHP and qualifies for ride share. Praveen will contact insurance for a ride in the event, Ed does not contact [facility] by the end of . ACT will continue to provide pt support for therapuetic and med services. Praveen provided pt with resources to shelters and motels under $100 a night. Praveen remained security controls assessor with Erma from 1243pm to 1247pm.
--- NOTE | 2023-10-18 16:15 | NUR ---
Eduardo received a call from Savannah (i.e. Juanis Sow supervisor education). Savannah advised that she has been in communication with pt ACT casemanager (i.e. Luis Angel Brar). Per Savannah, Luis Angel will send Savannah notes regarding pt hx to review and after reviewing pt hx, a decision will be made if the pt is allowed to [facility]. Savannah advises she will review with pt information provided to eduardo. Eduardo provided pt the phone to contact Savannah. Eduardo received a call from Savannah at approximately 1534pm.
--- NOTE | 2023-10-18 18:23 | NUR ---
SHIFT SUMMARY PT AxOx4. PLEASANT AND COOPERATIVE WITH CARE THIS SHIFT. PT HAS BEEN FOLLOWING CARE PLAN, TAKING MEDS PRESCRIBED AND PARTICIPATING IN GROUPS TODAY. PT DENIED SI/HI AND AVH THIS SHIFT. SHE MET WITH PROVIDER TODAY WHICH SUGGESTED POSSIBLE DC TOMORROW. PT REPORTED FEELING ANXIOUS AND STRESSED ABOUT THIS SITUATION. CURRENT PLAN IS TO DC [facility]. [facility] DINKEY ENGINE OPERATOR IN TODAY TO MEET WITH PT TO ASSIST WITH DC PLANS. PT IS CURRENTLY RESTING IN BED AFTER SHOWERING. DENIES ANY NEEDS AT THIS TIME.
[2023-10-18 19:21] VITALS: BP 125/78
--- NOTE | 2023-10-18 19:36 | NUR ---
Patient c/o seeing circles and lights that she knows are not there. Also hearing sounds (not voices) that are not familiar. "i'm scared and too sick to be dischaarged tommorow". Patient medicated with HS meds risperdal, vistaril and PRN ativan which she requested for her increasing anxiety. will continue close monitoring
--- NOTE | 2023-10-18 22:36 | NUR ---
Patient sleeping at this time. will continue close monitoring
--- NOTE | 2023-10-19 01:07 | NUR ---
At 2300, patient woke quite upset, and asked for something to help her fall back to sleep so she would not hallucinate. Risperdal 2mg given per order for MASS of 4. will continue close observation.
--- NOTE | 2023-10-19 01:32 | NUR ---
Patient OOB at 0125 c/o 10/05 headache. Still with anxiety and intermittant eye contact. No additional talk of SI since earlier in evening.
--- NOTE | 2023-10-19 04:27 | NUR ---
Patient had a restless night. She started the evening c/o AVH and SI and how she didn't feel well enough to discharge without a "place to go". She was given her HS medications early with a requested ativan. Shortly after she fell asleep until around 2330 when she awoke again shaken and anxious and asked if there was anything else she might take to get back to sleep to make the hallucinations stop. 2mg risperdol given per prn order. Then at 0130, she woke and came to the nurses desk and asked for tylenol for a headache 10/05. Unsure of sleep hours due to patient restlessness overnight. no further complaints after 2330 about AVH or statements of SI.
[2023-10-19 08:33] VITALS: BP 119/87
--- NOTE | 2023-10-19 09:02 | NUR ---
A.M. ASSESSMENT PT UP TO NURSES STATION, PLEASANT AND RESPECTFUL. PT REQUESTING SHOWER SUPPLIES, PHONE, AND VERBALIZES CONCERNS FOR DISCHARGE TODAY. EXPLAINED TO PT NEW DEVELOPMENTS ONPOSS PLACEMENT TO [facility] FOR MH CLIENTS. PT VISUALLY SEEMS MORE AT EASE W/ INFORMATION AND HOPEFUL FOR PLACEMENT. PT INFORMED THAT MAY BE OUT OF AREA AND PT REPORTS FINE WITH THIS CHOICE.
--- NOTE | 2023-10-19 10:46 | NUR ---
[facility] CM VISIT ED ACT TEAM NETWORKING TECHNOLOGY INSTRUCTOR SHOWED UP W/ [facility] COSMO FOR PT SIGNATURES.
--- NOTE | 2023-10-19 12:21 | NUR ---
PHONE REQUEST PT AT NURSES STATION REQUESTING TO USE THE PHONE TO CALL SISTER. PT HEARD ON PHONE TELLING SISTER THAT SHE JUST REALLY NEEDS SOMEONE TO TALK TO, PT VOICE CRACKING TEARFUL WHEN TALKING.
--- NOTE | 2023-10-19 12:41 | NUR ---
A resource was identified for this patient at [facility] for patients needed 19/10 care.It was identified that they had a vacancy and pt had potential for review for placement in their care. I collaborated with the ACt team to gather records to have social work send over referral. ACTteam and treatment team had patient sign COSMO for release of records to [facility]. Contact # [phone]
--- NOTE | 2023-10-19 16:16 | NUR ---
PT RESTING ON HERCULES BAG IN SENSORY ROOM LISTENING TO R&B
--- NOTE | 2023-10-19 17:36 | NUR ---
SHIFT SUMMARY PT A&OX4, VERY COOPERATIVE AND COMPLIANT TODAY. NO AGGRESSIVE BEHAVIORS OR AGITATION NOTED TODAY. FLOOR INSTALLER AND SW WORKING ON PLACEMENT AT DISCHARGE W/ GROUP HOMES. PT REPORTS LESS ANXIETY KNOWING NOT DISCHARGING TO THE STREET. NO ACUTE CHANGES OR CONCERNS TODAY.
--- NOTE | 2023-10-19 20:01 | NUR ---
Patient laying quietly in bed. Appears to be sleeping. Respirations even and unlabored.
--- NOTE | 2023-10-20 04:08 | NUR ---
Patient has slept all night since approximately 2100. No SI,HI or AVH on assessment. Very quiet. one word answers only. Will continue close observation
[2023-10-20 08:35] VITALS: BP 107/60
--- NOTE | 2023-10-20 09:11 | NUR ---
PT UP EARLY AT 0700, FLAT AFFECT, PLEASANT "YES/NO MA'AM" DENIES ANY SI/HI, COOPERATIVE WITH MEDICATIONS, PT HAS TAKEN A SHOWER AND REMOVED HER NAME BAND AGAIN. DECLINED TO PARTICIPATE IN MORNING MOVEMENT GROUP WITH OT. SHEET METAL SHOP SUPERVISOR SPOKE WITH [facility]/ACT TEAM ABOUT COORDINATION OF SERVICES FOR PLACEMENT IN OUT OF COUNTY HOUSING.
--- NOTE | 2023-10-20 11:10 | NUR ---
Spoke with pt ACT sub assembly team worker to follow up Ed Maykel at 830am to discuss if documents had be sent over to the Residential Facility at [facility]. Ed let me know he gathered the wrong document per his medical records department. They are resending correct COSMO for patient to sign for [facility] to be able to send over documents to [facility] for potential placement.
--- NOTE | 2023-10-20 13:29 | NUR ---
Potential [facility] Placement information COSMO's for [facility] was signed by Patient and sent over via secure email response to [facility] patients ACT Team for release of referral documents.
[2023-10-20] MEDS ORDERED: ClonazePAM 0.5 MG Tab PO SCH (16:55)
--- NOTE | 2023-10-21 04:25 | NUR ---
Patient pleasant and cooperative with staff and peers prior to HS. No SI,HI or AVH. Asking for additional information on Clonazepam. Explanation given. Sleep time so far has been almost 8 hours.
--- NOTE | 2023-10-21 06:28 | NUR ---
Patient woke this morning asking to skip all groups "Since I am getting used to this new medication, I would like to skip groups today." This RN explained that the medication is in the same family as the Ativan she has been taking.
--- NOTE | 2023-10-21 07:19 | NUR ---
PT UP EARLY THIS MORNING, PT HAS QUESTIONS AND CONERNS REGARDING NEW MEDICATION, DISCUSSED THESE VERBALLY AND PT GIVEN WRITTEN PT EDUCATION REGARDING KLONOPIN.
--- NOTE | 2023-10-21 11:57 | NUR ---
Payee info on Potential Placement Spoke with Patients payee to inquire if pt was placed out of county, if they would still have their support. Payee let me know that because she is established with them they will be able to continue if thats what she would like, patient on 10/20/23 stated she wanted them to "Stay her payee if possible" I let her know what the patient stated and she asked to be updated on discharge so she can ensure her social security is available to her and if she needs to do any paperwork for any room and board for [facility]
--- NOTE | 2023-10-21 12:04 | NUR ---
Potential Placement Information Reached out to [facility] Tobias this morning at 8:45am and again here at 12:03p left voicemail to reach out to us to find out what there decision is on patient. I also reached out to Erma to see if she maybe had been in contact with [facility] palumbo at 11:55am. Will follow up when able to hear back from the team.
--- NOTE | 2023-10-21 23:09 | NUR ---
PATIENT VERY ANXIOUS AND AGITATED AT BEGINNING OF SHIFT. SHE HAD A RAISED VOICE AT THE NURSES STATION STATING "I NEED TO STAY HERE AT LEAST ANOTHER 2 WEEKS", "I NEED MORE TIME BEFORE i'M DISCHARGED". SHE WAS ABLE TO BE REDIRECTED BACK TO HER ROOM. SHE REQUESTED HER PM MEDICATIONS EARLY AND THIS WAS HONERED. SHE WAS COMPLIANT WITH ASSESSMENT, CARE AND MEDICATIONS. SHE IS HAVING AH SHE IS TALKING TO HERSELF AND REFERING TO HERSEL "WE" AND "THEY". WITH 15 MIN CHECKS, SHE WAS ENGAGE IN CONVERSATIONS WITH HER INTERNAL STIMULI, EVEN ANSWERING HER AH. SHE WAS ABLE TO SETTLE DOWN AND FALL A SLEEP AROUND 10PM.
--- NOTE | 2023-10-22 01:56 | NUR ---
Patient continues to sleep without any behaviors or issues.
--- NOTE | 2023-10-22 05:45 | NUR ---
PATIENT IS CURRENTLY SLEEPING. I HAVE CONCERNS WITH THE POSSIBLITY OF HER DISCHARGE LATER TODAY. SHE WAS DECOMPENSATING IN HER POC. SHE IS HVING SIGNIFICANT AH, ANSWERING TO INTERNAL STIMULI, SHE IS REQUESTING TO STAY LONGER TO SEE IF SHE CAN IMPROVE. I WILL REPORT MY CONCERNS TO DAY SHIFT.
--- NOTE | 2023-10-22 08:08 | NUR ---
Sw attempted to contact pt ACT ed case manager Luis Angel Brar at 0804am and therapist Erma at [phone], however, sw left a vm to both. [facility] staff will continue to attempt to reach pt ACT in regard for pt discharge transportation.
[2023-10-22 08:41] VITALS: BP 128/76
[2023-10-22] MEDS ORDERED: CLON.5 PO (14:15)
[2023-10-22] MEDS ORDERED: ONDA4 PO (14:16)
[2023-10-22] MEDS ORDERED: NICO2 PO (14:16)
--- NOTE | 2023-10-22 15:13 | NUR ---
DISCHARGE SUMMARY: PATIENT DISCHARGED WITH ED FROM [facility]. DISCUSSED DISCHARGE INSTRUCTIONS INCLUDING DISCHARGE MEDICATION LIST, FOLLOW UP APPOINTMENTS AND PATIENT EDUCATION. PT VERBALIZED UNDERSTANDING AND WAS ESCORTED OUT BY [facility] QUILLER HAND.
--- NOTE | 2023-10-22 15:17 | NUR ---
PT confirmed all belongings were in her possession upon discharge of the [facility] at 1510.
== END 2023-10-22 15:10 | disposition home or self-care (01) | DRG 885 ==
LOC: BHU 12:22
PROVIDERS: ADMIT Psychiatry & Neurology Psychiatry
DX: F20.0 Paranoid schizophrenia (principal); Z59.00 Homelessness unspecified; R45.851 Suicidal ideations; F29 Unspecified psychosis not due to a substance or known physiological condition; G47.00 Insomnia, unspecified; Z91.148 Patient's other noncompliance with medication regimen for other reason; Z88.8 Allergy status to other drugs, medicaments and biological substances
CPT/HCPCS: A9270; J2426

== ENCOUNTER 2024-01-20 12:25 | Emergency (ER) | payer OTHER ==
[~2024-01-20] VITALS: Ht 157.5 cm; Wt 91.6 kg
[~2024-01-20 12:25] MED LIST changes: +NICO2 PO; +ONDA4 PO
[2024-01-20] MEDS ORDERED: Ketorolac Tromethamine 15mg Vial IM ONE (13:05)
[2024-01-20 14:42] VITALS: BP 128/89
== END 2024-01-20 14:42 | disposition home or self-care (01) ==
LOC: ER 12:25
DX: S93.401A Sprain of unspecified ligament of right ankle, initial encounter (principal); F17.210 Nicotine dependence, cigarettes, uncomplicated; W18.30XA Fall on same level, unspecified, initial encounter; Z88.8 Allergy status to other drugs, medicaments and biological substances
CPT/HCPCS: 73610; 96372; 99283-25; J1885

== ENCOUNTER 2024-03-18 09:34 | Observation (INO) | payer OTHER ==
[~2024-03-18] VITALS: Ht 157.5 cm; Wt 91.6 kg
[2024-03-18 09:58] VITALS: BP 139/84
[2024-03-18 10:24] LABS: BASOPHILS ABSOLUTE AUTO 0.07 K/mm3 (0.00-0.23); BASOPHILS PERCENT AUTO 1 % (0-2); EOSINOPHILS ABSOLUTE AUTO 0.23 K/mm3 (0.00-0.68); EOSINOPHILS PERCENT AUTO 2 % (0-6); Hematocrit 47.4 % (33.0-51.0); Hemoglobin 15.9 g/dL (11.5-16.0); IMMATURE GRAN ABSOLUTE AUTO 0.04 K/mm3 (0.00-0.10); IMMATURE GRAN PERCENT AUTO 0 % (0-1); LYMPHOCYTES ABSOLUTE AUTO 2.21 K/mm3 (0.84-5.20); LYMPHOCYTES PERCENT AUTO 17 % (21-46); MONOCYTES ABSOLUTE AUTO 0.87 K/mm3 (0.16-1.47); MONOCYTES PERCENT AUTO 7 % (4-13); Mean Corpuscular HGB 29.2 pg (26.0-34.0); Mean Corpuscular HGB Conc 33.5 g/dL (31.5-36.5); Mean Corpuscular Volume 87 fL (80-100); Mean Platelet Volume 8.6 fL (9.1-12.4); NEUTROPHILS ABSOLUTE AUTO 9.81 K/mm3 (1.96-9.15); NEUTROPHILS PERCENT AUTO 74 % (41-73); Platelet Count 336 K/mm3 (150-400); RDW Coefficient Variation 13.8 % (11.7-14.2); RDW Standard Deviation 43.9 fL (35.1-46.3); Red Blood Cell Count 5.45 M/mm3 (3.80-5.20); White Blood Cell Count 13.23 K/mm3 (4.00-11.30)
[2024-03-18 10:49] LABS: Alanine Aminotransfer (ALT/SGP 23 U/L (12-78); Albumin, Blood 3.5 g/dL (3.4-5.0); Albumin/Globulin Ratio 0.8 (0.8-1.8); Alk Phos 93 U/L (50-136); Anion Gap 9 mmol/L (3-11); Aspartate Aminotrans (AST/SGOT 33 U/L (12-37); Bilirubin, Total 0.4 mg/dL (0.1-1.0); Blood Urea Nitrogen 8 mg/dL (8-24); CO2, Blood 25 mmol/L (21-32); Calcium, Blood 9.6 mg/dL (8.5-10.1); Chloride, Blood 106 mmol/L (98-108); Creatinine, Blood 0.67 mg/dL (0.40-1.00); Ethanol (Alcohol), Blood, Med <3 mg/dL; Globulin, Blood 4.5 g/dL (2.2-4.0); Glomerular Filtration Rate 125 (60-); Glucose, Blood 96 mg/dL (70-99); Potassium, Blood 4.3 mmol/L (3.5-5.5); Sodium, Blood 136 mmol/L (136-145)
[2024-03-18 10:50] LABS: Acetaminophen, Random <2.0 ug/mL (10.0-30.0)
[2024-03-18 12:09] LABS: Source, Urine Clean Catch
[2024-03-18 12:13] LABS: Appearance, Urine Clear (Clear); Bilirubin, Urine Neg (Neg); Blood, Urine 1+ (Neg); Color, Urine Yellow (P-Yellow); Glucose Qualitative, Urine Neg (Neg); Ketones, Urine Neg (Neg); Leukocyte Esterase, Urine 1+ (Neg); Nitrite, Urine Neg (Neg); Protein, Urine Neg (Neg); Urobilinogen, Urine NORM (Normal)
[2024-03-18 12:25] LABS: U Amphetamine Screen Not Detected; U Barbituate Screen Not Detected; U Benzodiazapine Screen Not Detected; U Buprenorphine Screen Not Detected; U Cannabinoids Screen Not Detected; U Cocaine Screen Not Detected; U Methadone Screen Not Detected; U Methamphetamine Screen Not Detected; U Opiates Screen Not Detected; U Oxycodone Screen Not Detected; U Phencyclidine Screen Not Detected
[2024-03-18 12:29] LABS: Bacteria Rare /hpf; Red Blood Cells, Urine 0-2 /hpf (0-2); Squamous Epithelial Cells Few /hpf (Few); White Blood Cells, Urine 0-2 /hpf (0-5)
[2024-03-18] MEDS ORDERED: [UNRECOGNIZED DRUG - CODE] PO (15:12)
[2024-03-18] MEDS ORDERED: PALIPERIDONE ER6 MG PO (15:12)
[2024-03-18] MEDS ORDERED: INVEGA SUS234 MG/1.1 IM (15:13)
[2024-03-18] MEDS ORDERED: PALI3TAB PO (17:52)
[2024-03-18] MEDS ORDERED: ZYRTEC10 M1 PO (17:53)
[2024-03-18] MEDS ORDERED: DIVA500ER PO (17:53)
[2024-03-18] MEDS ORDERED: HYDPAM50 PO (17:54)
[2024-03-18] MEDS ORDERED: ABILIFY MYCITE5 M1 PO (17:54)
== END 2024-03-18 15:38 | disposition other institution (70) ==
LOC: ER 09:34 → EOR 09:35
PROVIDERS: ADMIT Student in an Organized Health Care Education/Training Program
DX: F25.0 Schizoaffective disorder, bipolar type (principal); R45.851 Suicidal ideations; Z59.00 Homelessness unspecified; F43.20 Adjustment disorder, unspecified; Z88.8 Allergy status to other drugs, medicaments and biological substances; Z79.899 Other long term (current) drug therapy; F41.9 Anxiety disorder, unspecified; D72.829 Elevated white blood cell count, unspecified
CPT/HCPCS: 80053; 80320; 81001; 81025; 85025; 87086; 87147; 93005; 93010; 99285-25; G0378; G0480

== ENCOUNTER 2024-03-18 13:03 | Inpatient (IN) | payer OTHER ==
[~2024-03-18] VITALS: Ht 157.5 cm; Wt 90.0 kg
[2024-03-18] MEDS ORDERED: Aluminum Hydroxide 320MG/5ML 473 ML PO PRN (14:50)
[2024-03-18] MEDS ORDERED: Acetaminophen 325 MG TABLET PO PRN (14:50)
[2024-03-18] MEDS ORDERED: DiphenhydrAMINE HCl 50 MG Cap PO PRN (14:50)
[2024-03-18] MEDS ORDERED: DiphenhydrAMINE HCl 50 MG/ML 1ML Vial IV PRN (14:55)
[2024-03-18] MEDS ORDERED: Melatonin 3 MG Tab PO PRN (14:55)
[2024-03-18] MEDS ORDERED: Haloperidol Lactate Inj. 5 MG/ML Injection IM PRN (14:55)
[2024-03-18] MEDS ORDERED: FLU VACC TS2024-25(6MOS UP)/PF 45 MCG/0.5 ML SYRINGE IM PRN (14:55)
[2024-03-18] MEDS ORDERED: Ibuprofen 600 MG Tab PO PRN (14:55)
[2024-03-18] MEDS ORDERED: Calcium Carbonate 500 MG Tab Chew PO PRN (14:55)
[2024-03-18] MEDS ORDERED: HydrOXYzine Pamoate 50 MG Cap PO PRN (14:55)
[2024-03-18] MEDS ORDERED: Haloperidol 5 MG Tab PO PRN (15:00)
[2024-03-18] MEDS ORDERED: Ondansetron 4 MG SoluTab MM PRN (15:00)
[2024-03-18] MEDS ORDERED: LORazepam 2 MG Tab PO PRN (15:00)
[2024-03-18] MEDS ORDERED: TraZODone HCl 50 MG Tab PO PRN (15:00)
[2024-03-18] MEDS ORDERED: Polyethylene Glycol 3350 17 gm PO PRN (15:00)
[2024-03-18] MEDS ORDERED: LORazepam 2 MG/ML 1ML Injection IM PRN (15:00)
[2024-03-18] MEDS ORDERED: OLANZapine ODT 10 MG Tab MM PRN (15:00)
[2024-03-18] MEDS ORDERED: PALIPERIDONE ER6 MG PO (15:12)
[2024-03-18] MEDS ORDERED: [UNRECOGNIZED DRUG - CODE] PO (15:12)
[2024-03-18] MEDS ORDERED: INVEGA SUS234 MG/1.1 IM (15:13)
[2024-03-18 16:26] VITALS: BP 124/80
--- NOTE | 2024-03-18 17:22 | NUR ---
ADMISSION NOTE: PT WAS BROUGHT OVER FROM [facility] ED VOLUNTARY ADMIT TO [facility]. PT INITIALLY HAD C/O HOPELESSESS AND HELPLESSNESS D/T CURRENT LIVING SITUATION AND LACK OF FAMILY SUPPORT. PT CURRENTLY DENIES SI/HI AND IS COOPERATIVE WITH ADMISSION. SHE IS A&O X4 AND ABLE TO PARTICIPATE ACTIVELY WITH ASSESSEMENTS. SHE STATES SHE IS CURRENTLY LIVING IN AN ADULT LONG-TERM AND IS AWAITING PLACEMENT IN A NEW ONE. SHE STATES HER FAMILY IS NOT SUPPORTIVE WITH HER SITUATION AND KEEP TELLING HER TO GET A JOB. SHE ADMITS TO NEEDING ASSISTANCE WITH HER MEDICATIONS AND IS HOPEFUL TO BETTER HER SITUATION.
--- NOTE | 2024-03-18 17:38 | NUR ---
ACT TEAM CONTACT: PT PROVIDED PERMISSION TO SPEAK WITH BIRGIT AT [facility] ACT TEAM TO OBTAIN MED LIST. CALL PLACED TO BIRGIT AT [phone]. STATES THAT PT IS GOING TO BE MOVING TO A [facility] SOON. STATES THAT SHE IS CURRENTLY IN A COMMUNIAL LIVING SITUATION THAT IS NOT GOOD FOR HER. LAST INVEGA INJECTION 03/14. MEDS JUST REFILLED ON THE . PROVIDED UPDATED MED LIST THAT RECONCILED IN [employer].
[2024-03-18] MEDS ORDERED: PALI3TAB PO (17:52)
[2024-03-18] MEDS ORDERED: ZYRTEC10 M1 PO (17:53)
[2024-03-18] MEDS ORDERED: DIVA500ER PO (17:53)
[2024-03-18] MEDS ORDERED: HYDPAM50 PO (17:54)
[2024-03-18] MEDS ORDERED: ABILIFY MYCITE5 M1 PO (17:54)
[2024-03-18] MEDS ORDERED: Nicotine Polacrilex 2 MG Gum PO PRN (18:35)
[2024-03-18] MEDS ORDERED: RisperiDONE 1 MG Tab PO SCH ×2 (21:00)
--- NOTE | 2024-03-18 21:37 | NUR ---
Shift Assessment: Night 03/18/24 Received Pt at 1900. Denied SI/HI; endorsed AH of "voices saying I shouldn't be treated good," and VH of "figurines of people on the wall and ceiling." Endorsed anxiety 10/05 and depression 01/05. Mood anxious, affect blunted. Intense eye contact. Pt stated she frequently becomes tired of discussing her mental status with providers/nurses, but understands the necessity of doing so. She requested to shower x2 "because I feel dirty." Discussed unit policies and procedures, to which Pt agreed, but may require reminders due to limited understanding. Pt attended evening wrap-up group and ate snack. Med compliant; received PRNS (see MAR) for sleeplessness. She retired to bed without complications. Plan: Continue to provide safe, therapeutic environment in which to work on TP goals. Continue discharge planning.
[2024-03-19 02:56] VITALS: BP 132/94
--- NOTE | 2024-03-19 04:13 | NUR ---
Shift Summary: Night 03/18/24 Pt was in her room at the start of shift (0.) Discussed plan for the evening, with which she was in agreement. Pt participated in assessment; denied SI/HI, endorsed AVH of seeing figurines and hearing voices saying "I don't deserve to be treated good." Participated in evening group during snack. Med compliant; received PRNs (see MAR) for sleeplessness. Requested to shower, then retired to bed. She awoke around 0150 stating she had a OLSON with pain 4/10; she received PRN (see MAR,) which was effective. Around 0230 she stated the voices were becoming worse; she received PRN (see MAR,) which was effective in that it allowed her to return to resting for the remainder of the night. No further complications.
[2024-03-19 08:52] VITALS: BP 132/86
[2024-03-19] MEDS ORDERED: Multivitamins 1 Tab PO SCH (09:00)
--- NOTE | 2024-03-19 09:44 | NUR ---
SHIFT NOTE: PT NEEDED 2-3 ENOURAGEMENTS FROM STAFF TO GET OUT OF BED FOR BREAKFAST, BUT SHE EVENTUALLY DID. PT DENIES ANY SI/HI BUT STATES DIFFICULTY FINDING THE WORDS TO EXPRESS HER THOUGHTS. PT C/O DEPRESSION AND ANXIETY R/T HOUSING SITUATION. SHE IS COOPERATIVE ADN ENGAGING WITH STAFF. STATES SHE IS HAVING AUDITORY HAULLUCINATIONS HEARING VOICES TELLING HER TO DO THINGS, "PEOPLE JUST DONT DO THOSE KINDS OF THINGS," BUT WAS UNABLE TO DESCRIBE WHAT SHE WAS HEARING.
--- NOTE | 2024-03-19 16:54 | NUR ---
SHIFT SUMMARY: PT WAS COOPERATIVE AND ACTIVELY PARTICIPATED IN MEALS AND LEISURE TIME. DENIES ANY SI/HI. HAD C/O INCREASED ANXIETY R/T SAME CURRENT ISSUES STATED BEFORE, AND ALSO STATES THAT SHE IS HAVING AUDITORY HAULLUCINATIONS. SHE WAS MEDICATED FOR ANXIETY ONCE THIS SHIFT WITH HYDROXIZYNE WHICH APPEARED TO BE SOMEWHAT AFFECTIVE. PT DID TAKE MULTIPLE SHOWERS BUT STATES UNDERSTANDING TO REUSE TOWELS AND SCRUBS EACH DAY. SHE IS CURRENTLY AMBULATING IN HER ROOM AND THE HALLWAY IN [facility].
[2024-03-19 21:11] VITALS: BP 129/85
--- NOTE | 2024-03-20 04:03 | NUR ---
Patient is alert, oriented and cooperative with care. She denies SI,HI or AVH at time of assessment. Jaylene did complain of a frontal headache and received Tylenol twice with desired result. She did wake just before 0400 asking for another sleeping pill, but this RN encouraged her to try to sleep again after receiving the 2nd dose of tylenol. Patient agreed to try. will continue close observation for safety and comfort
[2024-03-20 08:19] VITALS: BP 132/72
[2024-03-20 08:30] VITALS: BP 132/72
--- NOTE | 2024-03-20 16:39 | NUR ---
SHIFT SUMMARY, DAYS: PT REFUSED BKFT THIS MORNING, STAYED IN BED UNTIL FIRST GROUP WITH NEELAM. SHE HAS SHOWERED, ATE LUNCH AND SNACKS AND MOSTLY STAYED IN HER ROOM SLEEPING. COMPLIANT WITH MEDICATIONS. MORNING REPORT IT WAS SHARED THAT SHE CURRENTLY LIVES IN A COMMUNAL HOME AND THAT IT'S NOT WORKING OUT WELL FOR THE PT. PT IS PAID RENT THERE THROUGH END OF YEAR. 03-29-24 PT IS TO MOVE TO A HALFWAY AND IT'S EXPECTED SHE WILL DO WELL THERE WITH MORE STRUCTURED ENVIRONMENT. PT ENDORSES AUDITORY HALLUCINATIONS BUT DENIES SI/HI AND VH AT THIS TIME, SHE IS BEING CONTINUALLY MONITORED BY STAFF Q15 MIN TO UNSURE PT SAFETY
[2024-03-20 20:36] VITALS: BP 126/80
--- NOTE | 2024-03-21 04:54 | NUR ---
Patient is alert and oriented, pleasant and cooperative with staff and her peers. Still complaining of mild frontal headache which she states happens when she has medication changes. No SI,HI or AVH during assessment. Patient took two showers during this shift which did help her get back to sleep around HS and then again around 0200. Will continue close monitoring every 15 minutes for safety and comfort.
[2024-03-21] MEDS ORDERED: Paliperidone 1.5 MG TAB.ER.24 PO SCH (09:00)
[2024-03-21] MEDS ORDERED: Divalproex Sodium 500 MG TABCR PO SCH (09:00)
[2024-03-21 11:59] VITALS: BP 135/86
--- NOTE | 2024-03-21 18:31 | NUR ---
SHIFT SUMMARY Pt is A&O, calm, cooperative, eye contact is appropriate. Pt stated that her mood was "depressed, calm;" affect is constricted. Pt denies SI and HI, but endorses auditory hallucinations that are in the "background, they're not telling me to do anything." Pt c/o headache pain 6/10w and received PRN [facility] at 0804, which brought her pain down to 3. Pt received PRN nicotine cora x2 today. Pt spent the day active on the milieu, participating in groups and pleasantly interacting with staff and peers. Staff continues to monitor for safety and wellness.
--- NOTE | 2024-03-22 01:12 | NUR ---
NOC SHIFT SUMMARY Continues to endorse AH in the evening, but denies hearing distinct words (just chatter tonight). Gave PRN Zydis with PRNs for sleep (trazodone, melatonin). Denies SI/HI while awake, but mentions nightmares related to suicide. She does not have interest in acting on anything she remembers from the dreams and finds them unpleasant. Pt interacted with staff during snack time, then went back to bed. Observed to be sleeping overnight without issue.
--- NOTE | 2024-03-22 06:03 | NUR ---
pATIENT IS ALERT AND ORIENTED AND COOPERATIVE WITH CARE. NO SI,HI OR VISUAL HALLUCINATIONS. PATIENT STATES SHE IS STILL HAVING THE AUDITORY HALLUCINATIONS, HOWEVER THEY ARE NOT TELLINS HER TO HARM HERSELF OR OTHERS. pATIENT HAS HAD A GOOD SLEEP OVERNIGHT BETWEEN 8-9 HOURS.WILL CONTINUE CLOSE MONITORING EVERY 15 MINUTES FOR SAFETY
--- NOTE | 2024-03-22 10:01 | NUR ---
PT A/O X4. PLEASANT AND COPERATIVE. NO C/O PER PT. SHE IS GOING TO CALL HER MOTHER TODAY. THEY HAVE NOT HAD THE BEST RELATIOHSHIP IN THE PAST. SHE SAYS THAT IT ISN'T BETTER AT THIS TIME. SHOWERED, TOOK MEDS AND ATE BREAKFAST. DENIES TO BE SI AND AVH. NOT HEARING VOICES AT THIS TIME. WILL CONTINUE TO MONITOR.
--- NOTE | 2024-03-22 17:31 | NUR ---
SHIFT SUMMARY: PT A/O X4. PLEASANT AND COOPERATIVE. DENIES SI AND AVH. SLEPT MOST OF THE DAY. DID GET UP FOR MEALS AND SPENT SOME TIME IN THE SENSORY ROOM. PT UNABLE TO GET A HOLD OF MOTHER OR SISTER BY PHONE NUMBEERS STATING CANNOT BE REACHED. LOREN SUPERVISOR TOY ASSEMBLY REACHED OUT TO ACT TEAM AT [facility] AND WAS UNABLE TO GET MOTHER'S PHONE NUMBER. THEY WILL GET IN TOUCH WITH LOREN TOMORROW. PT IS ' FUSTRATED, ANGRY, AGITATED AND WANTS ANSWERS" PER HER WORDS. TOWARDS EVENING PT CAME UP TO NURSES [facility] AND TALKED TO FRANKIE ALMARAZ AND SPOKE TO HER IN CLARIFING WHAT THE DECLARATON FOR MAKING HEALTH CARE DECISIONS. IT WAS EXPLAINED TO HER THAT SHE COULD UNDERSTAND AND DOES NOT WANT ANY FAMILY TO MAKE ANY MEDICAL DECISONS FOR HER.. WILL CONTINUE TO MONITOR.
[2024-03-22 20:33] VITALS: BP 120/86
--- NOTE | 2024-03-23 02:54 | NUR ---
NOC SHIFT SUMMARY Pt got out of bed for evening snack. Joined peers in the dining room. Returned to bed and was listening to something entertaining with wireless headphones (started laughing loudly). She was cheerful when approached about HS PRNs for sleep. Gave PRNs for sleep (trazodone, melatonin) and AH (zydis). Pt additionally requested PRN for new onset of left side ("rib") pain, moderate. Gave ibuprofen. Pt denied known cause for the soreness and was noted to be sleeping well when reassessed. No other new concerns reported. No issues for the remainder of shift.
[2024-03-23 08:59] VITALS: BP 122/60
[2024-03-23] MEDS ORDERED: Cephalexin Monohydrate 500 MG Cap PO SCH (13:00)
--- NOTE | 2024-03-23 17:28 | NUR ---
SHIFT SUMMARY: PT ALERT, ORIENTED AND COOPERATIVE WITH CARE. DENIES SI BUT DOES ENDORSE AH TELLING HER TO HARM HERSELF. DENIES INTENTION OF ACTING ON THESE THOUGHTS. PT SPOKE WITH SQL CONSULTANT AND IS REQUESTING TO DISCHARGE TOMORROW. PT BECAME AGGITATED WHEN SHE WAS NOT ALLOWED TO HAVE HER CELL PHONE. DISCUSSED UNIT POLICY WITH HER. SHE STATED UNDERSTANDING AND ACCEPTED PRN FOR AGGITATION. STAYED IN HER ROOM THE MAJORITY OF THE DAY BUT WAS PRESENT IN THE DAY ROOM WATCHING TV IN THE EVENING.
[2024-03-23 19:50] VITALS: BP 111/72
--- NOTE | 2024-03-23 21:12 | NUR ---
Shift Assessment: Night 03/23/24 Received Pt at 1900. Pt denied SI/HI; endorsed AH of voices saying "I'm not a good person, nobody likes me." Denied anxiety; endorsed depression /10. Mood downcast, affect flat. Appropriate eye contact. Denied pain and physical complaints. Med compliant; received PRNs for sleeplessness. Pt was in her room for the majority of the evening, but emerged for snack/group. No complications.
--- NOTE | 2024-03-24 04:25 | NUR ---
Shift Summary: Night 03/23/24 Pt was in her room at the start of shift. Discussed plan for the evening, with which Pt was in agreement. Pt fully participated in assessment: denied SI/HI, endorsed AH of voices saying negative things about her, endorsed depression 5/10, denied anxiety. She left her room for snack; participated in evening wrap-up group. Med compliant. Received PRNs (see MAR) for sleeplessness. She retired to bed after receiving meds. Plan: Continue to provide safe, therapeutic environment in which to work on TP goals. Continue development of coping skills. Continue discharge planning.
[2024-03-24 08:05] VITALS: BP 127/77
[2024-03-24] MEDS ORDERED: CEPH500 PO (11:22)
--- NOTE | 2024-03-24 13:05 | NUR ---
DISCHARGE NOTE: PT EDUCATED ON D/C PLAN AND MEDICATIONS. RX CALLED TO [facility] WITH V/O TO [facility]UB[facility]. STATES UNDERSTANDING OF MEDICATIONS AND TO F/U WITH ACT TEAM AND CONTINUATION OF CARE. BELONGINGS RETURNED TO PT INCLUDING CELL PHONE. TRANSPORTATION ARRANGED THROUGH ACT AND PT TO BE TAKEN TO THE PHARMACY AND TO HOME BY ACT TEAM. PT VERBALLY DECLINED NICOTINE CEASATION COUNSELING. DRESSED SELF AND AMBULATED OUT OF FACILITY WITH MEMBER OF ACT TEAM.
[2024-04-14] MEDS ORDERED: Paliperidone Palmitate 234 MG/1.5 ML SYR IM SCH (09:00)
== END 2024-03-24 13:02 | disposition home or self-care (01) | DRG 885 ==
LOC: BHU 13:03
PROVIDERS: ADMIT Psychiatry & Neurology Psychiatry
DX: F20.0 Paranoid schizophrenia (principal); R45.851 Suicidal ideations; Z59.00 Homelessness unspecified; F32.A Depression, unspecified; F43.20 Adjustment disorder, unspecified; Z79.899 Other long term (current) drug therapy; Z88.8 Allergy status to other drugs, medicaments and biological substances
CPT/HCPCS: A9270

== ENCOUNTER 2024-06-27 01:32 | Emergency (ER) | payer OTHER ==
[~2024-06-27] VITALS: Ht 160 cm; Wt 98.4 kg
[~2024-06-27 01:32] MED LIST changes: +ABILIFY MYCITE5 M1 PO; +DIVA500ER PO; +HYDPAM50 PO; +INVEGA SUS234 MG/1.1 IM; +PALIPERIDONE ER6 MG PO; +ZYRTEC10 M1 PO; +[UNRECOGNIZED DRUG - CODE] PO
[2024-06-27 02:10] LABS: Source, Urine Clean Catch
[2024-06-27 02:14] LABS: Bilirubin, Urine Neg (Neg); Blood, Urine 2+ (Neg); Glucose Qualitative, Urine Neg (Neg); Ketones, Urine Neg (Neg); Leukocyte Esterase, Urine 3+ (Neg); Nitrite, Urine Neg (Neg); Protein, Urine 1+ (Neg); Urobilinogen, Urine NORM (Normal)
[2024-06-27 02:17] LABS: Appearance, Urine Hazy (Clear); Color, Urine Yellow (P-Yellow)
[2024-06-27 02:25] LABS: Bacteria Mod /hpf; Squamous Epithelial Cells Few /hpf (Few); White Blood Cells, Urine TNTC /hpf (0-5)
[2024-06-27] MEDS ORDERED: CEPH500 PO (03:19)
[2024-06-27] MEDS ORDERED: Cephalexin Monohydrate 500 MG Cap PO ONE (03:20)
[2024-06-27] MEDS ORDERED: HyDROXyzine HCl 25 MG Tab PO ONE (03:20)
[2024-06-27 03:40] VITALS: BP 125/68
== END 2024-06-27 03:41 | disposition home or self-care (01) ==
LOC: ER 01:32
PROVIDERS: Emergency Medicine
DX: N39.0 Urinary tract infection, site not specified (principal); F41.9 Anxiety disorder, unspecified; G47.00 Insomnia, unspecified; F17.210 Nicotine dependence, cigarettes, uncomplicated; Z68.38 Body mass index [BMI] 38.0-38.9, adult; Z79.899 Other long term (current) drug therapy; Z88.8 Allergy status to other drugs, medicaments and biological substances
CPT/HCPCS: 81001; 81025; 87086; 87147; 99285; A9270

== ENCOUNTER 2024-07-06 21:57 | Emergency (ER) | payer OTHER ==
[~2024-07-06] VITALS: Ht 157.5 cm; Wt 96.5 kg
[2024-07-06 22:52] LABS: Ethanol (Alcohol), Blood, Med <3 mg/dL; Salicylate 4.2 mg/dL (2.8-20.0)
[2024-07-06 23:04] LABS: Acetaminophen, Random <2.0 ug/mL (10.0-30.0); Alanine Aminotransfer (ALT/SGP 24 U/L (12-78); Albumin, Blood 3.8 g/dL (3.4-5.0); Alk Phos 102 U/L (50-136); Anion Gap 11 mmol/L (3-11); Aspartate Aminotrans (AST/SGOT 48 U/L (12-37); Bilirubin, Total 0.4 mg/dL (0.1-1.0); Blood Urea Nitrogen 6 mg/dL (8-24); Bun/Creatinine Ratio 8.1 (12.0-20.0); CO2, Blood 23 mmol/L (21-32); Calcium, Blood 8.7 mg/dL (8.5-10.1); Chloride, Blood 104 mmol/L (98-108); Creatinine, Blood 0.74 mg/dL (0.40-1.00); Glomerular Filtration Rate 116 (60-); Glucose, Blood 105 mg/dL (70-99); Potassium, Blood 3.6 mmol/L (3.5-5.5); Sodium, Blood 134 mmol/L (136-145); Total Protein, Blood 7.8 g/dL (6.4-8.2)
[2024-07-06 23:30] VITALS: BP 125/79
[2024-07-06 23:48] LABS: BASOPHILS ABSOLUTE AUTO 0.03 K/mm3 (0.00-0.23); BASOPHILS PERCENT AUTO 0 % (0-2); EOSINOPHILS ABSOLUTE AUTO 0.36 K/mm3 (0.00-0.68); EOSINOPHILS PERCENT AUTO 4 % (0-6); Hematocrit 44.2 % (33.0-51.0); Hemoglobin 15.2 g/dL (11.5-16.0); IMMATURE GRAN ABSOLUTE AUTO 0.03 K/mm3 (0.00-0.10); IMMATURE GRAN PERCENT AUTO 0 % (0-1); LYMPHOCYTES ABSOLUTE AUTO 2.56 K/mm3 (0.84-5.20); LYMPHOCYTES PERCENT AUTO 27 % (21-46); MONOCYTES ABSOLUTE AUTO 1.13 K/mm3 (0.16-1.47); MONOCYTES PERCENT AUTO 12 % (4-13); Mean Corpuscular HGB 29.2 pg (26.0-34.0); Mean Corpuscular HGB Conc 34.4 g/dL (31.5-36.5); Mean Corpuscular Volume 85 fL (80-100); Mean Platelet Volume 8.6 fL (9.1-12.4); NEUTROPHILS ABSOLUTE AUTO 5.55 K/mm3 (1.96-9.15); NEUTROPHILS PERCENT AUTO 58 % (41-73); Platelet Count 334 K/mm3 (150-400); RDW Standard Deviation 40.5 fL (35.1-46.3); Red Blood Cell Count 5.21 M/mm3 (3.80-5.20); White Blood Cell Count 9.66 K/mm3 (4.00-11.30)
[2024-07-07 00:39] LABS: Source, Urine Clean Catch
[2024-07-07 00:50] LABS: Bilirubin, Urine Neg (Neg); Blood, Urine 1+ (Neg); Glucose Qualitative, Urine Neg (Neg); Ketones, Urine Neg (Neg); Leukocyte Esterase, Urine Neg (Neg); Nitrite, Urine Neg (Neg); Protein, Urine Neg (Neg); Urobilinogen, Urine NORM (Normal)
[2024-07-07 01:05] LABS: U Amphetamine Screen Not Detected; U Barbituate Screen Not Detected; U Benzodiazapine Screen Not Detected; U Buprenorphine Screen Not Detected; U Cannabinoids Screen Not Detected; U Cocaine Screen Not Detected; U Methadone Screen Not Detected; U Methamphetamine Screen Not Detected; U Opiates Screen Not Detected; U Oxycodone Screen Not Detected; U Phencyclidine Screen Not Detected
[2024-07-07 01:07] LABS: Appearance, Urine Clear (Clear); Bacteria Few /hpf; Color, Urine Yellow (P-Yellow); Red Blood Cells, Urine 0-2 /hpf (0-2); Squamous Epithelial Cells Mod /hpf (Few); White Blood Cells, Urine 0-2 /hpf (0-5)
== END 2024-07-07 00:55 | disposition left against medical advice (07) ==
LOC: ER 21:57
PROVIDERS: Emergency Medicine; Student in an Organized Health Care Education/Training Program
DX: R10.9 Unspecified abdominal pain (principal); R30.0 Dysuria; F17.210 Nicotine dependence, cigarettes, uncomplicated; Z88.5 Allergy status to narcotic agent; Z88.9 Allergy status to unspecified drugs, medicaments and biological substances; Z79.899 Other long term (current) drug therapy; Z79.1 Long term (current) use of non-steroidal anti-inflammatories (NSAID); Z79.890 Hormone replacement therapy; Z79.51 Long term (current) use of inhaled steroids; Z79.52 Long term (current) use of systemic steroids
CPT/HCPCS: 36415; 80053; 80320; 81001; 81025; 85025; 99283; G0480

== ENCOUNTER 2024-07-22 16:26 | Emergency (ER) | payer OTHER ==
[~2024-07-22] VITALS: Ht 157.5 cm; Wt 98.4 kg
[2024-07-22 16:31] VITALS: BP 134/70
[2024-08-15] MEDS ORDERED: Haldol Dec50 MG/1 ML IM (09:21)
[2024-08-22] MEDS ORDERED: Ativan1 MG PO (08:31)
[2024-08-22] MEDS ORDERED: HALO5 PO (08:31)
== END 2024-07-22 17:47 | disposition left against medical advice (07) ==
LOC: ER 16:26
DX: R05.9 Cough, unspecified (principal); R06.02 Shortness of breath; R51.9 Headache, unspecified; Z53.21 Procedure and treatment not carried out due to patient leaving prior to being seen by health care provider

== ENCOUNTER 2024-08-14 02:35 | Observation (INO) | payer OTHER ==
[~2024-08-14] VITALS: Ht 157.5 cm; Wt 72.6 kg
[2024-08-14 02:40] VITALS: BP 119/67
[2024-08-14 03:12] LABS: BASOPHILS ABSOLUTE AUTO 0.04 K/mm3 (0.00-0.23); BASOPHILS PERCENT AUTO 0 % (0-2); EOSINOPHILS ABSOLUTE AUTO 0.29 K/mm3 (0.00-0.68); EOSINOPHILS PERCENT AUTO 3 % (0-6); Hematocrit 45.3 % (33.0-51.0); Hemoglobin 15.3 g/dL (11.5-16.0); IMMATURE GRAN ABSOLUTE AUTO 0.04 K/mm3 (0.00-0.10); IMMATURE GRAN PERCENT AUTO 0 % (0-1); LYMPHOCYTES ABSOLUTE AUTO 2.82 K/mm3 (0.84-5.20); LYMPHOCYTES PERCENT AUTO 26 % (21-46); MONOCYTES ABSOLUTE AUTO 1.05 K/mm3 (0.16-1.47); MONOCYTES PERCENT AUTO 10 % (4-13); Mean Corpuscular HGB Conc 33.8 g/dL (31.5-36.5); Mean Corpuscular Volume 86 fL (80-100); Mean Platelet Volume 8.7 fL (9.1-12.4); NEUTROPHILS ABSOLUTE AUTO 6.83 K/mm3 (1.96-9.15); NEUTROPHILS PERCENT AUTO 62 % (41-73); Platelet Count 362 K/mm3 (150-400); RDW Coefficient Variation 13.3 % (11.7-14.2); Red Blood Cell Count 5.28 M/mm3 (3.80-5.20); White Blood Cell Count 11.07 K/mm3 (4.00-11.30)
[2024-08-14 03:24] LABS: Ethanol (Alcohol), Blood, Med <3 mg/dL; Salicylate 3.4 mg/dL (2.8-20.0)
[2024-08-14 03:36] LABS: Alanine Aminotransfer (ALT/SGP 37 U/L (12-78); Albumin, Blood 3.8 g/dL (3.4-5.0); Alk Phos 114 U/L (50-136); Anion Gap 11 mmol/L (3-11); Aspartate Aminotrans (AST/SGOT 49 U/L (12-37); Bilirubin, Total 0.9 mg/dL (0.1-1.0); Blood Urea Nitrogen 7 mg/dL (8-24); Bun/Creatinine Ratio 9.5 (12.0-20.0); CO2, Blood 24 mmol/L (21-32); Calcium, Blood 8.9 mg/dL (8.5-10.1); Chloride, Blood 105 mmol/L (98-108); Creatinine, Blood 0.73 mg/dL (0.40-1.00); Globulin, Blood 3.9 g/dL (2.2-4.0); Glomerular Filtration Rate 118 (60-); Glucose, Blood 105 mg/dL (70-99); Potassium, Blood 3.9 mmol/L (3.5-5.5); Sodium, Blood 136 mmol/L (136-145); Total Protein, Blood 7.7 g/dL (6.4-8.2)
[2024-08-14 03:37] LABS: Acetaminophen, Random <2.0 ug/mL (10.0-30.0)
[2024-08-14] MEDS ORDERED: QUEtiapine Fumarate 100 MG Tab PO ONE (04:40)
[2024-08-14 05:45] LABS: Source, Urine Clean Catch
[2024-08-14 05:50] LABS: Appearance, Urine Hazy (Clear); Bilirubin, Urine Neg (Neg); Blood, Urine Neg (Neg); Color, Urine Yellow (P-Yellow); Glucose Qualitative, Urine Neg (Neg); Ketones, Urine 2+ (Neg); Leukocyte Esterase, Urine 2+ (Neg); Nitrite, Urine Neg (Neg); Protein, Urine 2+ (Neg); Specific Gravity, Urine 1.025 (1.003-1.022); Urobilinogen, Urine 1+ (Normal)
[2024-08-14 05:59] LABS: Amorphous Light (0-Heavy); Bacteria Many /hpf; Mucus Mod (0-Heavy); Red Blood Cells, Urine Not Seen /hpf (0-2); Squamous Epithelial Cells Many /hpf (Few); White Blood Cells, Urine 25-50 /hpf (0-5)
[2024-08-14 06:01] LABS: U Amphetamine Screen Not Detected; U Barbituate Screen Not Detected; U Benzodiazapine Screen Not Detected; U Buprenorphine Screen Not Detected; U Cannabinoids Screen Not Detected; U Cocaine Screen Not Detected; U Methadone Screen Not Detected; U Methamphetamine Screen Not Detected; U Opiates Screen Not Detected; U Oxycodone Screen Not Detected; U Phencyclidine Screen Not Detected
[2024-08-14] MEDS ORDERED: Acetaminophen 325 MG TABLET PO ONE (09:05)
[2024-08-15] MEDS ORDERED: Haldol Dec50 MG/1 ML IM (09:21)
[2024-08-22] MEDS ORDERED: Ativan1 MG PO (08:31)
[2024-08-22] MEDS ORDERED: HALO5 PO (08:31)
== END 2024-08-14 11:39 | disposition other institution (70) ==
LOC: ER 02:35 → EOR 02:36
PROVIDERS: ADMIT Student in an Organized Health Care Education/Training Program
DX: F25.0 Schizoaffective disorder, bipolar type (principal); F17.210 Nicotine dependence, cigarettes, uncomplicated; Z88.8 Allergy status to other drugs, medicaments and biological substances; Z79.899 Other long term (current) drug therapy
CPT/HCPCS: 80053; 80320; 81001; 81025; 85025; 87086; 99285; A9270; G0378; G0480

== ENCOUNTER 2024-09-22 17:33 | Observation (INO) | payer OTHER ==
[~2024-09-22] VITALS: Ht 157.5 cm; Wt 94.3 kg
[~2024-09-22 17:33] MED LIST changes: +Ativan1 MG PO; +HALO5 PO; +Haldol Dec50 MG/1 ML IM
[2024-09-22 18:11] LABS: BASOPHILS ABSOLUTE AUTO 0.06 K/mm3 (0.00-0.23); BASOPHILS PERCENT AUTO 0 % (0-2); EOSINOPHILS ABSOLUTE AUTO 0.24 K/mm3 (0.00-0.68); EOSINOPHILS PERCENT AUTO 2 % (0-6); Hematocrit 45.5 % (33.0-51.0); Hemoglobin 15.4 g/dL (11.5-16.0); IMMATURE GRAN ABSOLUTE AUTO 0.03 K/mm3 (0.00-0.10); IMMATURE GRAN PERCENT AUTO 0 % (0-1); LYMPHOCYTES ABSOLUTE AUTO 3.11 K/mm3 (0.84-5.20); LYMPHOCYTES PERCENT AUTO 23 % (21-46); MONOCYTES PERCENT AUTO 8 % (4-13); Mean Corpuscular HGB 29.2 pg (26.0-34.0); Mean Corpuscular HGB Conc 33.8 g/dL (31.5-36.5); Mean Corpuscular Volume 86 fL (80-100); Mean Platelet Volume 8.5 fL (9.1-12.4); NEUTROPHILS ABSOLUTE AUTO 9.18 K/mm3 (1.96-9.15); NEUTROPHILS PERCENT AUTO 67 % (41-73); Platelet Count 341 K/mm3 (150-400); RDW Coefficient Variation 13.2 % (11.7-14.2); Red Blood Cell Count 5.28 M/mm3 (3.80-5.20); White Blood Cell Count 13.72 K/mm3 (4.00-11.30)
[2024-09-22 18:20] LABS: Source, Urine Clean Catch
[2024-09-22 18:33] LABS: Ethanol (Alcohol), Blood, Med <3 mg/dL; Salicylate 4.1 mg/dL (2.8-20.0)
[2024-09-22 18:39] LABS: Appearance, Urine Clear (Clear); Bilirubin, Urine Neg (Neg); Blood, Urine Neg (Neg); Glucose Qualitative, Urine Neg (Neg); Ketones, Urine Neg (Neg); Leukocyte Esterase, Urine Neg (Neg); Nitrite, Urine Neg (Neg); Protein, Urine Neg (Neg); Specific Gravity, Urine 1.005 (1.003-1.022); Urobilinogen, Urine NORM (Normal)
[2024-09-22 18:40] LABS: Alanine Aminotransfer (ALT/SGP 26 U/L (12-78); Albumin, Blood 3.6 g/dL (3.4-5.0); Albumin/Globulin Ratio 0.9 (0.8-1.8); Alk Phos 115 U/L (50-136); Anion Gap 7 mmol/L (3-11); Aspartate Aminotrans (AST/SGOT 33 U/L (12-37); Bilirubin, Total 0.3 mg/dL (0.1-1.0); Blood Urea Nitrogen 7 mg/dL (8-24); Bun/Creatinine Ratio 10.4 (12.0-20.0); CO2, Blood 26 mmol/L (21-32); Calcium, Blood 8.9 mg/dL (8.5-10.1); Chloride, Blood 104 mmol/L (98-108); Creatinine, Blood 0.67 mg/dL (0.40-1.00); Globulin, Blood 3.9 g/dL (2.2-4.0); Glomerular Filtration Rate 125 (60-); Glucose, Blood 77 mg/dL (70-99); Potassium, Blood 3.8 mmol/L (3.5-5.5); Sodium, Blood 133 mmol/L (136-145); Total Protein, Blood 7.5 g/dL (6.4-8.2)
[2024-09-22 18:44] LABS: Acetaminophen, Random <2.0 ug/mL (10.0-30.0)
[2024-09-22 18:50] LABS: U Amphetamine Screen Not Detected; U Barbituate Screen Not Detected; U Benzodiazapine Screen Not Detected; U Buprenorphine Screen Not Detected; U Cannabinoids Screen Not Detected; U Cocaine Screen Not Detected; U Methadone Screen Not Detected; U Methamphetamine Screen Not Detected; U Opiates Screen Not Detected; U Oxycodone Screen Not Detected; U Phencyclidine Screen Not Detected
[2024-09-22 19:11] LABS: Color, Urine Pale Yellow (P-Yellow)
[2024-09-23] MEDS ORDERED: Nicotine 14 MG PATCH TOP ONE (04:30)
[2024-09-23 07:40] VITALS: BP 150/102
== END 2024-09-23 10:37 | disposition other institution (70) ==
LOC: ER 17:33 → EOR 17:34
PROVIDERS: ADMIT Student in an Organized Health Care Education/Training Program
DX: F20.0 Paranoid schizophrenia (principal); R45.851 Suicidal ideations; F17.210 Nicotine dependence, cigarettes, uncomplicated; Z91.148 Patient's other noncompliance with medication regimen for other reason; Z79.899 Other long term (current) drug therapy; Z88.8 Allergy status to other drugs, medicaments and biological substances
CPT/HCPCS: 80053; 80320; 81003; 81025; 85025; 93005; 93010; 99285-25; A9270; G0378; G0480

== ENCOUNTER 2024-09-23 09:14 | Inpatient (IN) | payer OTHER ==
[~2024-09-23] VITALS: Ht 157.5 cm; Wt 95.0 kg
[2024-09-23 10:50] VITALS: BP 124/81
[2024-09-23 11:04] VITALS: BP 124/81
[2024-09-23] MEDS ORDERED: DiphenhydrAMINE HCl 50 MG/ML 1ML Vial IM PRN (12:30)
[2024-09-23] MEDS ORDERED: Ondansetron 4 MG SoluTab MM PRN (12:30)
[2024-09-23] MEDS ORDERED: Polyethylene Glycol 3350 17 gm PO PRN (12:30)
[2024-09-23] MEDS ORDERED: LORazepam 2 MG/ML 1ML Injection IM PRN ×3 (12:35→12:40)
[2024-09-23] MEDS ORDERED: Aluminum Hydroxide 320MG/5ML 473 ML PO PRN (12:35)
[2024-09-23] MEDS ORDERED: Haloperidol Lactate Inj. 5 MG/ML Injection IM PRN ×2 (12:35)
--- NOTE | 2024-09-23 15:41 | NUR ---
Admission Pt admitted from [facility] ED. Pt's belongings locked on unit and 2 RN skin check done by Miranda RN and Breana RN. No skin abnormalities noted. During admission interview pt denied SI. She reported auditory hallucinations and says that bugs and crickets speak to her. She also reported hearing voices. Pt said she mostly came into the ED in order to get her medications straightened out. She was not sure if she was prescribed everything that she was supposed to be taking since she was last in the [facility]. Pt appears calm and cooperative. Pt oriented to her room and unit.
--- NOTE | 2024-09-23 17:30 | NUR ---
SHIFT SUMMARY PT ADMITTED FROM THE ED THIS SHIFT. SHE IS A/O X4 AND DENIES SI/HI. SHE REPORTS AUDITORY HALLUCINATIONS. PT REPORTS THAT INSECTS ARE TALKING TO HER AND SHE HEARS VOICES. VOICES ARE NOT COMMANDING AT THIS TIME AND PT DOES NOT SEEM TO BE RESPONDING TO THE INTERNAL STIMULI. PT SAID THAT SHE CAME TO THE ED IN ORDER TO GET HER MEDICATIONS STRAIGHTENED OUT. SHE SAID THAT A CORE CUTTER AND REAMER OF HERS SAID THAT SHE WAS HAVING PARANOID DELUSIONS AND THAT SHE NEEDED TO COME IN. SHE APPEARS CALM AND INTERACTS WITH PEERS APPROPRIATELY. SHE IS ROUNDED ON Q15 FOR SAFETY AND WELLNESS.
--- NOTE | 2024-09-24 04:32 | NUR ---
SHIFT SUMMARY: PT A/O X4. PT DENIES TO BE SI, HI ALTHOUGH ENDORSED AH. STATES THE VOICES ONLY BAD AT TIMES WHEN THEY ARE SCREAMING AT HER. THEY SO NOT SAY TO HARM HERSELF AND FEELS THAT THEY JUST MAKE "ME CRAZY". PT WANTS TO GET HER MEDICATIONS IN ORDER SHE FEELS SOMETHING ISN'T RIGHT. PT ISOLATED HERSELF FROM OTHERS AND KEEPS IN HER ROOM. CAME OUT FOR DINNER, BUT DID NOT COME OUT FOR 2000 SNACK AND WRAP UP TIME. TOOK MEDS PRESCRIBED AND PRN TRAZODONE. SLEPT WELL THROUGH THE NIGHT. WILL CONTINUE TO MONITOR Q 15 MINS FOR SAFETY AND WELLNESS.
[2024-09-24 08:43] VITALS: BP 125/85
[2024-09-24 09:00] LABS: CHOL/HDL RATIO 4.6; Cholesterol 158 mg/dL (50-200); HDL Cholesterol 34 mg/dL (>39); LDL/HDL RATIO 2.6; Low Density Lipoprotein Chol 87 mg/dL (0-110); Triglycerides 184 mg/dL (30-140); Very Low Density Lipoprot Chol 36 mg/dL (6-28)
[2024-09-24] MEDS ORDERED: Multivitamins 1 Tab PO SCH (09:00)
--- NOTE | 2024-09-24 17:09 | NUR ---
SHIFT SUMMARY PT A/O X4; PLEASANT AND COOPERATIVE WITH CARE. SHE DENIES SI/HI. PT CONTINUES TO HAVE HALLUCINATIONS OF INSECTS SPEAKING TO HER AND VOICES TELLING HER TO CALL HER MOM. PT REQUIRES REASSURANCE AT TIME BUT IS ABLE TO BE REDIRECTED. PT INTERACTS WITH PEERS AND IS PARTICIPATING MORE IN MILEU ACTIVITIES.
--- NOTE | 2024-09-25 04:48 | NUR ---
SHIFT SUMMARY: PT A/O X4. COPERATIVE. DENIES SI, HI, AND AVTH. ASKED HER IF SHE WAS STILL HEARING VOICES AND SHE SAID "NO". PT AT DINNER AT THE BEGINNING OF THE SHIFT. PT DID NOT WANT TO GO TO WRAP UP GROUP OR SNACK AT 1999. WAS IN BED AFTER DINNER AND HAS SLEPT THROUGH THE NIGHT. WILL CONTINUE TO MONITOR Q 15 MIN
[2024-09-25 08:08] VITALS: BP 134/83
[2024-09-25] MEDS ORDERED: MetFORMIN HCl 500 mg PO SCH (11:55)
--- NOTE | 2024-09-25 17:35 | NUR ---
SHIFT SUMMARY PT AxOx4. PLEASANT AND COOPERATIVE WITH CARE. PT DENIED SI AND HI BUT ENDORSED AUDIO HALLUCINATIONS THIS SHIFT. REPORTS "BIRDS AND BUGS TALK TO ME AND TELL ME TO DO STUFF LIKE GO SMOKE A CIGARETTE." PT REPORTS "GOOD" MOOD TODAY. SHE HAS BEEN PARTICIPATING IN GROUPS, TAKING MEDS PRESCRIBED AND MINGLING RESPECTFULLY WITH PEERS/STAFF. PT'S MEDICATION ORDER'S WERE CHANGED THIS SHIFT. PT AWARE AND AGREEABLE TO CHANGES. SHE REPORTED A HEADACHE x1 THIS SHIFT AND WAS MEDICATED WITH REPORTED RELIEF. AIMS SCORE= 0. PT IS CURRENTLY LYING IN HER BED. DENIES ANY NEEDS AT THIS TIME.
[2024-09-25 20:47] VITALS: BP 123/74
--- NOTE | 2024-09-26 04:56 | NUR ---
SHIFT SUMMARY: Patient is alert and oriented times four. She remained in bed most of the evening, declining to get up and join her peers for snacks. This RN completed a very brief assessment on her prior to giving her her bedtime medications. Still having some very mild AH, but no SI, HI or VTH. Will continue close observation every 15 minutes for comfort and safety.
[2024-09-26 08:48] VITALS: BP 132/85
--- NOTE | 2024-09-26 18:05 | NUR ---
SHIFT SUMMARY PT AxOx4. PLEASANT AND COOPERATIVE WITH CARE. PT DENIED SI/HI THIS SHIFT, BUT ENDORSED "LOW VOICES." DENIED OTHER HALLUCINATIONS. SHE HAS BEEN FOLLOWING HER TREATMENT PLAN TODAY INCLUDING TAKING MEDICATION PRESCRIBED, ATTENDING MILIEU THERAPY GROUPS, AND MINGLING APPROPRIATELY WITH PEERS/STAFF. PT IS CURRENTLY SITTING IN GROUP ROOM WATCHING TV WITH PEERS. HER INVOLUNTARY HOLD IS UP ON 10/02/24.
[2024-09-26 20:46] VITALS: BP 117/62
--- NOTE | 2024-09-27 04:58 | NUR ---
Patient is alert and oriented times four. She went to bed shortly after showering at shift change. Jaylene woke easily for assessment and to take her medications around 2100. She denies SI,HI and visual and tactile hallucinations. Still having "mild AH when asked. She went right back to sleep after interview, and has not woken since. Will continue close observation every 15 minutes for comfort and safety
[2024-09-27 07:47] VITALS: BP 134/85
--- NOTE | 2024-09-27 17:16 | NUR ---
SHIFT SUMMARY PT DENIES SI, HI, VTH. ENDORSES AUDITORY HALLUCINATIONS, STATES THEY'RE MUCH "BETTER". STATES THEY ARE TELLING HER TO "ISOLATE" HERSELF. PT AT START OF SHIFT ENDORSED BEING ANXIOUS, BUT FELT "BETTER" AFTER GETTING NICOTINE PATCH/MORNING MEDS. HAS BEEN GOING TO GROUPS AND INTERACTING W/ PEERS INTERMITTENTLY. NO ACUTE EVENTS TODAY.
[2024-09-27 20:56] VITALS: BP 125/64
--- NOTE | 2024-09-28 04:14 | NUR ---
SHIFT SUMMARY: PATIENT APPROACHED RN AT BEGINNING OF THE SHIFT AND STATED THAT SHE WANTED HER MEDICATIONS "EARLY BECAUSE I WANT TO GO TO SLEEP". SHE WAS ABLE TO PARTICIPATE IN AIRPLANE CABIN ATTENDANT AND ANSWERED QUESTIONS WITH ONE OR TWO WORD SENTENCES. SHE DENIED SUICIDAL IDEATION, THOUGHTS OF SELF HARMING OR A/V/T HALLUCINATIONS. SHE WAS COMPLIANT WITH EVENING MEDICATIONS. SHE DECLINED TO PARTICIPATE IN SNACK OR WRAP UP GROUP AT 2030. SHE WAS IN BED RESTING WITH EYES CLOSED AND RESPIRATIONS CONFIRMED FOR THE REMAINDER OF THE SHIFT. CONTINUING TO MONITOR FOR SAFETY WITH Q15 MINUTE CHECKS.
[2024-09-28 08:36] VITALS: BP 142/81
--- NOTE | 2024-09-28 17:33 | NUR ---
SHIFT SUMMARY PT DENIES SI, HI, TVH. ENDORSES AUDITORY HALLUCINATIONS THAT STATED "SHE NEEDS TO GET OUT OF THE HOSPITAL, SHE'S BEEN HERE TO LONG" AND "I'M TIRED OF TALKING TO HER". PT STATES SHE IGNORES THE VOICES AND ENDORSES THAT THE VOICES ARE NOT DISTRESSING HER. PT LATER CAME TO THIS RN ASKING FOR ANXIETY MEDICATION (SEE EMAR FOR WHEN ZYPREXA WAS GIVEN) AND WAS NOT ABLE TO ELABORATE WHY SHE WAS FEELING ANXIOUS. ZYPREXA GIVEN AND PT MASS 2-3~. NO OTHER ACUTE EVENTS. PT TO MEALS.
[2024-09-28 19:19] VITALS: BP 134/87
--- NOTE | 2024-09-28 23:56 | NUR ---
SHIFT SUMMARY Pt is A&O, calm, cooperative, eye contact was limited. Pt s stated mood is okay, affect is blunted. Pt denies SI, and HI. Pt endorses auditory hallucinations of a non-command nature. Pt denies current pain or other medical issues. Pt remained in her room throughout the shift. Staff continues q15m safety check per unit protocol.
--- NOTE | 2024-09-29 00:20 | NUR ---
Report received from SUNG Castaneda at 2400. Assuming care for remainder of shift. Patient currently sleeping. Will continue close monitoring every 15 minutes for safety and comfort.
[2024-09-29 08:32] VITALS: BP 130/84
--- NOTE | 2024-09-29 09:39 | NUR ---
SHIFT ASSESSMENT: PT DENIED SI AND HI, SHE ENDORSED AUDITORY HALLUCINATIONS, "SHE NEEDS TO GO LAY DOWN...SHE NEEDS TO STOP TALKING TO FANG. (STEP DAD) WHEN ASKED ABOUT ANXIETY SHE SAID, "YES THE SHAKY FEELING IN MY CHEST AND LEGS." WHEN DOING THE ASSESSMENT FOR ABNORMAL INVOLUNTARY MOVEMENT THERE WAS NO APPARENT MOVEMENTS IN THOSE AREAS. SHE DESCRIBED HER MOOD DEPRESSED AND HER AFFECT WAS FLAT. PT ATE HER BREAKFAST, TOOK HER MEDS AND RETURNED TO HER BED.
--- NOTE | 2024-09-29 18:21 | NUR ---
PT SLEPT FOR A WHILE THIS AFTERNOON, SHE USED THE PHONE AND SEEMED TO ENJOY THE CONVERSATION, SHE ATTENDED AN ART GROUP BUT DIDN'T WANT TO PARTICIPATE IN THE PROJECT. "I'M JUST HERE FOR THE CONVERSATION." SHE DID TAKE PART IN THE CONVERSATIONS.
[2024-09-29 19:28] VITALS: BP 142/90
--- NOTE | 2024-09-30 05:12 | NUR ---
SHIFT SUMMARY PATIENT SLEEPING AWAKENS TO VERBAL STIMULI. ANSWERING QUESTIONS FULLY, VERBALIZED "I'M JUST TIRED" DENIES SI, HI OR VH. VERBALIZED THAT AUDITORY HALLUCINATIONS ARE "NOISES AND SOUNDS THAT COME AND GO" NON-COMMANDING. TAKING HS MEDICATIONS ORDERED, REQUESTING MELATONIN AND TRAZODONE. WANTING TO KEEP NICOTINE PATCH ON. PATIENT SLEEPING WELL T/O NIGHT RESP EVEN AND UNLABORED. CONTINUE TO MONITOR Q15MIN
[2024-09-30 08:45] VITALS: BP 129/86
--- NOTE | 2024-09-30 09:24 | NUR ---
SHIFT ASSESSMENT: PT DENIED SI, HI AND ANXIETY. SHE ENDORSED AUDITORY HALLUCINATIONS, "THEY ARE QUIET RIGHT NOW." SHE COMPLAINED OF BACK PAIN 5/10w AND WAS GIVEN TYLENOL 650MG. SHE DESCRIBED HER MOOD , "CALM." HER AFFECT IS FLAT. SHE IS ACTIVE IN THE PT MILIEU. SHE HAS BEEN PLEASANT AND COOPERATIVE.
--- NOTE | 2024-09-30 18:03 | NUR ---
PT WAS PLEASANT AND COOPERATIVE WITH CARE DURING THE MORNING AND EARLY AFTERNOON. AT 1617 SHE CAME OUT OF HER ROOM UPSET, "I CAN'T DEAL WITH BEING HERE ANYMORE." SHE SUBMITED TO TAKING ZYPREXA 10MG, SHE LAID DOWN IN HER BED FOR A BIT AND THEN BEGAN YELLING IN HER ROOM. THIS DENTIST PRIVATE PRACTICE TOOK HER OUT TO THE PATIO AND SAT WITH HER FOR ABOUT 35 MINUTES. SHE EXPRESSED THAT HER BROTHER WHO WAS CLOSEST TO HER GOT HIS DRIVERS LICENSE 4 YRS AGO AND THEN WAS KILLED IN A CAR ACCIDENT. SHE BECAME VERY TEARFUL AND ALSO REPORTED THAT SHE DOESN'T KNOW HOW TO COPE WITH HIS . SHE ALSO REPORTED THAT HER MOM IS MOVING OUT OF STATE AND LEAVING HER HERE. SHE SAID THAT SHE HAS BROKEN MONTGOMERY AND OTHER THINGS AND HAS "NO IDEA HOW TO APPOLOGIZE IN A BIG ENOUGH WAY TO HAVE FORGIVENESS FROM OTHERS...I HAVE BEEN SO CHAOTIC I HAVE NO IDEA WHERE TO EVEN START." SHE DENIED EVER HAVING ANY GRIEF COUNSELING OR TALK THERAPY. SHE TALKED ABOUT HER FEELINGS FOR ABOUT 15 MINUTES AND THEN WENT BACK TO HER ROOM TO "TRY TO RELAX."
[2024-09-30 20:49] VITALS: BP 133/82
--- NOTE | 2024-09-30 22:33 | NUR ---
SHIFT SUMMARY: PT A/O X4. PT ASLEEP IN BED AT THE BEGINNING OF THE SHIFT. AWAKENED FOR INTERVIEW. DENIES SI, HI, AND AVH. SAID NO VOICES PRESENT AT THIS TIME. PT UP FOR 2030 SNACK TONIGHT. DID NOT PARTICIPTED IN GROUP. REMINED PT TO ASK FOR HELP IF SHOULD NEED IT. VERBLIED OK IN RETURN. PT BACK TO BED AFTER SNACK AND TO SLEEP. WILL CONTINUE TO MONITOR FOR SAFETY AND WELLNESS Q 15 MINS.
--- NOTE | 2024-10-01 00:11 | NUR ---
Assumed care at 2350 from SUNG Brown. Patient currently sleeping. Will continue every 15 minute monitoring for comfort and safety
--- NOTE | 2024-10-01 05:17 | NUR ---
END OF SHIFT SUMMARY Patient has been sleeping throughout the night. No changes since 2237 summary. Will continue close observation every 15 minutes for safety and comfort
[2024-10-01 07:52] VITALS: BP 125/83
--- NOTE | 2024-10-01 17:49 | NUR ---
SHIFT SUMMARY PT AxOx4. PLEASANT AND COOPERATIVE WITH CARE. PT REPORTS "FINE" MOOD THIS AM. SHE ALSO DENIED SI/HI, ENDORSED "LOW VOICES," BUT DENIED OTHER HALLUCINATION. PT ALSO REPORTED FEELING "BETTER THAN SHE WAS." SHE HAS BEEN FOLLOWING TREATMENT PLAN THIS SHIFT INCLUDING TAKING ALL MEDICATIONS PRESCRIBED, ATTENDING MILIEU THERAPY GROUPS AND MINGLING APPROPRIATELY WITH STAFF/PEERS. TODAY IS SARTHAK'S BIRTHDAY AND SHE REPORTED THAT EVERYONE HAS BEEN REALLY NICE TO HER AND IT MAKES HER FEEL GOOD AND SHE APPRECIATES IT. SHE ALSO RECEIVED BIRTHDAY WISHES THROUGH PHONE CALLS FROM FAMILY TODAY. PT IS CURRENTLY WALKING IN [place], LISTENING TO RADIO ON HEADPHONES. DENIES ANY NEEDS AT THIS TIME. PT'S EXPECTED DC IS FOR Wednesday10/03/24. PT AWARE AND AGREEABLE TO THIS PLAN.
[2024-10-01 19:26] VITALS: BP 130/80
--- NOTE | 2024-10-02 05:38 | NUR ---
SHIFT SUMMARY Patient is alert and oriented times 4. very pleasant and cooperative with staff and peers. She denies SI, HI and AVTH. Stating no AH yesterday evening. Will continue close observation every 15 minutes for safety and comfort.
[2024-10-02 07:07] VITALS: BP 121/82
[2024-10-02] MEDS ORDERED: Haldol 5 mg Tab5 MG PO (11:40)
[2024-10-02] MEDS ORDERED: METF500 PO (11:40)
--- NOTE | 2024-10-02 12:07 | NUR ---
DISCHARGE NOTE PT AxOx4. PLEASANT AND COOPERATIVE WITH CARE. PT IS DISCHARGING HOME TODAY BACK TO HER JAIL. SHE DENIES SI/HI AND ENDORSES "LOW VOICES," AND DENIES OTHER HALLUCINATIONS. PT HAS BEEN FOLLOWING TREATMENT PLAN INCLUDING TAKING HER MEDICATIONS PRESCRIBED, ATTENDING ALL MILIEU THERAPY GROUPS AND MINGLING APPROPRIATELY WITH PEERS/STAFF. PT IS GOAL ORIENTED AND STATES SHE FEELS BETTER NOW THAN WHEN SHE FIRST CAME IN. GEOVANNY, (HER CUSTOMER RETENTION REPRESENTATIVE) WAS NOTIFIED OF DC AND HE ARRIVED TO PICK HER UP AT 1157. BELONGING WERE RETURNED AND DISCHARGE INSTRUCTIONS WERE DISCUSSED INCLUDING DC MEDICATION LIST, FOLLOW UP WITH ACT TEAM INFO AND PATIENT EDUCATION ON MEDICATION AND DIAGNOSES. PT VERBALIZED UNDERSTANDING AND WAS SAFELY ESCORTED OUT WITH [facility].
== END 2024-10-02 11:57 | disposition home or self-care (01) | DRG 885 ==
LOC: BHU 09:14
PROVIDERS: ADMIT Student in an Organized Health Care Education/Training Program
DX: F20.0 Paranoid schizophrenia (principal); Z88.8 Allergy status to other drugs, medicaments and biological substances; Z79.899 Other long term (current) drug therapy
CPT/HCPCS: 36415; 80061; 83036; A9270

== ENCOUNTER 2024-10-26 14:05 | Emergency (ER) | payer OTHER ==
[~2024-10-26] VITALS: Ht 157.5 cm; Wt 94.8 kg
[~2024-10-26 14:05] MED LIST changes: +Haldol 5 mg Tab5 MG PO; +METF500 PO
[2024-10-26 14:07] VITALS: BP 125/81
[2024-10-26 14:35] LABS: Source, Urine Clean Catch
[2024-10-26 14:42] LABS: BASOPHILS ABSOLUTE AUTO 0.05 K/mm3 (0.00-0.23); BASOPHILS PERCENT AUTO 0 % (0-2); EOSINOPHILS ABSOLUTE AUTO 0.32 K/mm3 (0.00-0.68); EOSINOPHILS PERCENT AUTO 2 % (0-6); Hematocrit 48.7 % (33.0-51.0); Hemoglobin 16.4 g/dL (11.5-16.0); IMMATURE GRAN ABSOLUTE AUTO 0.07 K/mm3 (0.00-0.10); IMMATURE GRAN PERCENT AUTO 1 % (0-1); LYMPHOCYTES ABSOLUTE AUTO 2.50 K/mm3 (0.84-5.20); LYMPHOCYTES PERCENT AUTO 17 % (21-46); MONOCYTES ABSOLUTE AUTO 0.90 K/mm3 (0.16-1.47); MONOCYTES PERCENT AUTO 6 % (4-13); Mean Corpuscular HGB Conc 33.7 g/dL (31.5-36.5); Mean Corpuscular Volume 87 fL (80-100); NEUTROPHILS ABSOLUTE AUTO 10.71 K/mm3 (1.96-9.15); NEUTROPHILS PERCENT AUTO 74 % (41-73); NRBC ABSOLUTE 0.00 K/mm3 (0.00-0.02); NRBC Auto 0.0 /100 WBC (0.0-0.2); Platelet Count 373 K/mm3 (150-400); RDW Coefficient Variation 13.2 % (11.7-14.2); RDW Standard Deviation 41.4 fL (35.1-46.3)
[2024-10-26 14:52] LABS: Bilirubin, Urine Neg (Neg); Color, Urine Yellow (P-Yellow); Glucose Qualitative, Urine Neg (Neg); Ketones, Urine Neg (Neg); Leukocyte Esterase, Urine 1+ (Neg); Protein, Urine 1+ (Neg); Specific Gravity, Urine 1.020 (1.003-1.022); Urobilinogen, Urine NORM (Normal)
[2024-10-26 14:55] LABS: Alanine Aminotransfer (ALT/SGP 39.0 U/L (12-78); Albumin, Blood 3.8 g/dL (3.4-5.0); Albumin/Globulin Ratio 0.9 (0.8-1.8); Anion Gap 7.0 mmol/L (3-11); Aspartate Aminotrans (AST/SGOT 46.0 U/L (12-37); Bilirubin, Total 0.6 mg/dL (0.1-1.0); Blood Urea Nitrogen 7.0 mg/dL (8-24); CO2, Blood 25.0 mmol/L (21-32); Calcium, Blood 9.1 mg/dL (8.5-10.1); Chloride, Blood 106.0 mmol/L (98-108); Creatinine, Blood 0.66 mg/dL (0.40-1.00); Globulin, Blood 4.4 g/dL (2.2-4.0); Glucose, Blood 113.0 mg/dL (70-99); Potassium, Blood 4.1 mmol/L (3.5-5.5); Sodium, Blood 134.0 mmol/L (136-145); Total Protein, Blood 8.2 g/dL (6.4-8.2)
[2024-10-26 15:14] LABS: Red Blood Cells, Urine 0-2 /hpf (0-2)
== END 2024-10-26 16:03 | disposition left against medical advice (07) ==
LOC: ER 14:05
PROVIDERS: Physician Assistant
DX: R39.198 Other difficulties with micturition (principal); R11.2 Nausea with vomiting, unspecified; Z53.21 Procedure and treatment not carried out due to patient leaving prior to being seen by health care provider
CPT/HCPCS: 36415; 80053; 81001; 85025; 87086; 99282

== ENCOUNTER 2024-11-20 07:55 | Observation (INO) | payer OTHER ==
[~2024-11-20] VITALS: Ht 157.5 cm; Wt 99.3 kg
[~2024-11-20 07:55] MED LIST changes: +CEFDINIR300 M4 PO
[2024-11-20 08:16] VITALS: BP 134/91
[2024-11-20 09:07] LABS: BASOPHILS ABSOLUTE AUTO 0.04 K/mm3 (0.00-0.23); BASOPHILS PERCENT AUTO 0 % (0-2); EOSINOPHILS ABSOLUTE AUTO 0.11 K/mm3 (0.00-0.68); EOSINOPHILS PERCENT AUTO 1 % (0-6); Hematocrit 47.4 % (33.0-51.0); Hemoglobin 15.9 g/dL (11.5-16.0); IMMATURE GRAN ABSOLUTE AUTO 0.04 K/mm3 (0.00-0.10); IMMATURE GRAN PERCENT AUTO 0 % (0-1); LYMPHOCYTES ABSOLUTE AUTO 2.07 K/mm3 (0.84-5.20); LYMPHOCYTES PERCENT AUTO 15 % (21-46); MONOCYTES ABSOLUTE AUTO 0.86 K/mm3 (0.16-1.47); MONOCYTES PERCENT AUTO 6 % (4-13); Mean Corpuscular HGB Conc 33.5 g/dL (31.5-36.5); Mean Corpuscular Volume 86 fL (80-100); NEUTROPHILS ABSOLUTE AUTO 11.06 K/mm3 (1.96-9.15); NEUTROPHILS PERCENT AUTO 78 % (41-73); NRBC ABSOLUTE 0.00 K/mm3 (0.00-0.02); NRBC Auto 0.0 /100 WBC (0.0-0.2); Platelet Count 342 K/mm3 (150-400); RDW Coefficient Variation 13.1 % (11.7-14.2); RDW Standard Deviation 40.6 fL (35.1-46.3)
[2024-11-20 09:43] LABS: Ethanol (Alcohol), Blood, Med <3 mg/dL; Salicylate 4.1 mg/dL (2.8-20.0)
[2024-11-20 09:46] LABS: Alanine Aminotransfer (ALT/SGP 30 U/L (12-78); Albumin, Blood 3.8 g/dL (3.4-5.0); Albumin/Globulin Ratio 0.9 (0.8-1.8); Anion Gap 8 mmol/L (3-11); Aspartate Aminotrans (AST/SGOT 39 U/L (12-37); Bilirubin, Total 0.7 mg/dL (0.1-1.0); Blood Urea Nitrogen 8 mg/dL (8-24); CO2, Blood 24 mmol/L (21-32); Calcium, Blood 9.1 mg/dL (8.5-10.1); Chloride, Blood 108 mmol/L (98-108); Creatinine, Blood 0.66 mg/dL (0.40-1.00); Globulin, Blood 4.1 g/dL (2.2-4.0); Glucose, Blood 97 mg/dL (70-99); Potassium, Blood 4.0 mmol/L (3.5-5.5); Sodium, Blood 136 mmol/L (136-145); Total Protein, Blood 7.9 g/dL (6.4-8.2)
[2024-11-20 09:47] LABS: Acetaminophen, Random <2.0 ug/mL (10.0-30.0)
[2024-11-20 09:52] LABS: Source, Urine Clean Catch
[2024-11-20 09:56] LABS: Bilirubin, Urine Neg (Neg); Color, Urine Yellow (P-Yellow); Glucose Qualitative, Urine Neg (Neg); Ketones, Urine Neg (Neg); Leukocyte Esterase, Urine Neg (Neg); Protein, Urine Neg (Neg); Specific Gravity, Urine 1.010 (1.003-1.022); Urobilinogen, Urine NORM (Normal)
[2024-11-20 10:10] LABS: U Amphetamine Screen Not Detected; U Barbituate Screen Not Detected; U Benzodiazapine Screen Not Detected; U Buprenorphine Screen Not Detected; U Cannabinoids Screen Not Detected; U Cocaine Screen Not Detected; U Methadone Screen Not Detected; U Methamphetamine Screen Not Detected; U Opiates Screen Not Detected; U Oxycodone Screen Not Detected; U Phencyclidine Screen Not Detected
[2024-11-20] MEDS ORDERED: ZYRTEC10 M2 PO (17:56)
[2024-11-20] MEDS ORDERED: CLOZ25 PO (18:01)
[2024-11-20] MEDS ORDERED: MONT10T PO (18:02)
[2024-11-20] MEDS ORDERED: HALOPERIDOL IM (18:05)
== END 2024-11-20 11:28 | disposition other institution (70) ==
LOC: ER 07:55 → EOR 07:56
PROVIDERS: Student in an Organized Health Care Education/Training Program; ADMIT Student in an Organized Health Care Education/Training Program
DX: F25.0 Schizoaffective disorder, bipolar type (principal); F17.210 Nicotine dependence, cigarettes, uncomplicated; Z88.8 Allergy status to other drugs, medicaments and biological substances
CPT/HCPCS: 80053; 80320; 81003; 81025; 85025; 93005; 93010; 99285; A9270; G0378; G0480

== ENCOUNTER 2024-11-20 09:51 | Inpatient (IN) | payer OTHER ==
[~2024-11-20] VITALS: Ht 157.5 cm; Wt 96.1 kg
[2024-11-20 11:41] VITALS: BP 129/85
[2024-11-20 11:46] VITALS: BP 129/85
--- NOTE | 2024-11-20 12:44 | NUR ---
ADMIT NOTE/TRANSFER OF CARE PT DENIES SI AT THIS TIME D/T FEELIN "SAFE" AT THE [facility]. PT DENIES HI. ENDORSES V/A HALLUCINATIONS. STATES THE VOICES STATE "YOU'RE BETTER OFF " OR TELL HER TO KILL HERSELF. PT ALSO STATES THAT SHE SEE'S FACES RIGHT IN FRONT OF HER AND MAKES IT DIFFICULT TO SEE "REAL" PEOPLE. PT CALM AND COOPERATIVE AT THIS TIME. PT EXPRESSED DESIRE TO NOT GO BACK TO SAME HOUSING.
--- NOTE | 2024-11-20 17:26 | NUR ---
SHIFT SUMMARY SINCE ADMISSION PT HAS HAD NO ACUTE EVENTS TO REPORT. SHE SHOWERED AND STAYED IN HER ROOM. SAFETY CHECKS COMPLETED.
[2024-11-20] MEDS ORDERED: ZYRTEC10 M2 PO (17:56)
[2024-11-20] MEDS ORDERED: BENZ1 PO (17:57)
[2024-11-20] MEDS ORDERED: CLOZ25 PO (18:01)
[2024-11-20] MEDS ORDERED: MONT10T PO (18:02)
[2024-11-20] MEDS ORDERED: HALOPERIDOL IM (18:05)
[2024-11-20] MEDS ORDERED: Aluminum Hydroxide 320MG/5ML 473 ML PO PRN (19:20)
[2024-11-20] MEDS ORDERED: Ondansetron 4 MG SoluTab MM PRN (19:20)
[2024-11-20] MEDS ORDERED: Polyethylene Glycol 3350 17 gm PO PRN (19:20)
[2024-11-20] MEDS ORDERED: DiphenhydrAMINE HCl 50 MG/ML 1ML Vial IM PRN ×2 (19:20→19:25)
[2024-11-20] MEDS ORDERED: Haloperidol Lactate Inj. 5 MG/ML Injection IM PRN (19:25)
--- NOTE | 2024-11-21 06:05 | NUR ---
SHIFT SUMMARY Pt is A&O, somewhat agitated but cooperative, eye contact is appropriate. Pt denies SI and HI. She endorses AH of command-type voices and VH of "blobs and shadows." Pt's mood is good, affect is constricted. Pt reported headache pain 5/10w and received PRN ibuprofen at 1939, which was effective. Pt began to amp up about 194 and received PRN olanzapine at 1958 for a MASS score 9; a second dose was given at about 0145 along with PRN hydroxyzine. Pt requested PRN trazodone and melatonin HS. At about 0020 pt approached NS and reported bilateral foot pain 10/10w and was given PRN APAP at 0023. At 0145 pt stated that the pain was now shooting all through her body. Staff continues to monitor q15m for safety and wellness.
[2024-11-21 08:33] LABS: CHOL/HDL RATIO 4.2; Cholesterol 153 mg/dL (50-200); HDL Cholesterol 36 mg/dL (>39); LDL/HDL RATIO 2.5; Low Density Lipoprotein Chol 90 mg/dL (0-110); Triglycerides 136 mg/dL (30-140); Very Low Density Lipoprot Chol 27 mg/dL (6-28)
[2024-11-21] MEDS ORDERED: Multivitamins 1 Tab PO SCH (09:00)
[2024-11-21 09:01] VITALS: BP 145/90
--- NOTE | 2024-11-21 15:38 | NUR ---
PHONE CALL RETURNED BY FRANCISCA WITH [employer] ACT TEAM. CONFIRMED THAT PT RECEIVED HALDOL INJECTIONS ON 11/01/24 AND 11/16/24.
--- NOTE | 2024-11-21 16:08 | NUR ---
SHIFT SUMMARY PT A/O X4; AND ENDORSES SOME PASSIVE SI. PT DOES NOT HAVE A PLAN BUT REPORTS THAT HER AUDITORY HALLUCINATIONS ARE COMMANDING. SHE REPORTS AUDITORY AND VISUAL HALLUCINATIONS THAT SHE FINDS DISTRESSING. PT EXCUSED FROM GROUP TODAY DUE TO HER HALLUCINATIONS BEING SO DISTRACTING. PT MEDICATED PER EMR X2 FOR ANXIETY AND HALLUCINATIONS. PT'S GOAL IS TO GET STARTED ON NEW MEDICATION IN ORDER TO HELP WITH HER HALLUCINATIONS. CONFIRMED WITH FRANCISCA WITH THE ACT TEAM WHEN HER LAST HALDOL INJECTIONS WERE GIVEN. PT'S AFFECT IS ANXIOUS AND SHE HAS BEEN IN HER ROOM FOR THE MAJORITY OF THE SHIFT. SHE REPORTS THAT WEARING HEADPHONES HELPS WITH THE HALLUCINATIONS.
[2024-11-21 20:46] VITALS: BP 137/91
--- NOTE | 2024-11-22 04:20 | NUR ---
SHIFT SUMMARY PT LAYING IN BED AWAKE AT START OF SHIFT. SHE HAD TAKEN HER SCRUBS OFF AND REPORTS HER AUDITORY HALLUCINATIONS TOLD HER "TO GET NAKED, SO I DID". PT GOT DRESSED AND WAS REMINDED THAT THIS IS A CO-ED UNIT AND SHE NEEDS TO KEEP HER CLOTHES ON. SHE ALSO REPORTS VISUAL HALLUCINATIONS IN WHICH SHE SEES SHADOWS. SHE DENIES ANY SI OR HI. SHE WAS CALM AND COOPERATIVE, ASKED FOR HER EVENING MEDS. SHE REPORTED BODY ACHES AND REQUESTED AND RECEIVED IBUPROFEN. SHE ALSO REQUESTED AND RECEIVED MELATONIN SHE STATES SHE HAS DIFFICULTY SLEEPING. SHE WENT TO BED SHORTLY AFTER SNACK AND HAS REMAINED IN BED THROUGHOUT THE NIGHT. Q15 MINUTE CHECKS TO CONTINUE PER PT SAFETY.
[2024-11-22 09:03] VITALS: BP 144/94
[2024-11-22] MEDS ORDERED: LORazepam 2 MG/ML 1ML Injection IM PRN (09:35)
[2024-11-22] MEDS ORDERED: SENN187 PO (14:50)
--- NOTE | 2024-11-22 17:19 | NUR ---
SHIFT SUMMARY PT A/O X3; DENIES SI, HI BUT ENDORSES AH & VH. SHE BECAME AGITATED THIS AM WHILE MEETING WITH A MEMBER OF THE ACT TEAM. PT BECAME VERBALLY DISRUPTIVE AND WAS AGGRESSIVELY POSTURING. PT AGREEABLE TO TAKE PRN AND WAS ABLE TO CALM DOWN. PT HAS BEEN FAIRLY CALM FOR THE REST OF THE SHIFT AND WAS ABLE TO ATTEND A GROUP. SHE IS CURRENTLY RELAXING IN HER ROOM, USING THE HEADPHONES. PT REPORTS THAT HER HALLUCINATIONS ARE SOMEWHAT BETTER THAN YESTERDAY. SHE CONTINUES TO BE MONITORED PER UNIT PROTOCOL FOR SAFETY AND WELLNESS.
--- NOTE | 2024-11-22 18:32 | NUR ---
PT IN HALLWAY AND RESPONDING TO INTERNAL STIMULI. PT BEGAN YELLING/CURSING AND REPEATEDLY PUNCHING THE WALL. PT WENT TO ROOM AND CONTINUED TO CURSE. GIVEN PRN MEDICATION FOR AGITATION. SECURITY CALLED AND ON UNIT AT THIS TIME. PT REQUESTED BANDAIDS FOR KNUCKLES. SMALL ABRASIONS NOTED FINGER ON L HAND AND KNUCKLE TO RIGHT HAND. PT CONTINUED TO CURSE AT RN FOR NOT GETTING BANDAGE FAST ENOUGH. PT SAID "HURRY THE FUCK UP BITCH!" TO THIS RN. DINNER ARRIVED AND PT TO DINING [place]. PT EATING QUIETLY AT THIS TIME.
--- NOTE | 2024-11-23 04:31 | NUR ---
SHIFT SUMMARY AT START OF SHIFT, PT IN HER ROOM TALKING TO HERSELF, RESPONDING TO INTERNAL STIMULI. SHE DENIES ANY SI OR HI. SHE REPORTS AUDITORY HALLUCINATIONS AND STATES IT IS LIKE TV BACKGROUND NOISE. SHE DENIES ANY CURRENT VISUAL HALLUCINATIONS BUT STATES SHE CAN FEEL THEM STARTING TO COME. HER ATTITUDE IS SOMEWHAT ANTAGONISTIC AND FRUSTRATED. PT REQUESTING HER EVENING MEDS AND ALSO RQUESTED AND RECEIVED PRN TRAZODONE AND MELATONIN TO ASSIST WITH SLEEP. SHE REPORTS 8/10 BACK PAIN AND RECEIVED TYLENOL PER PRN ORDERS. PT STATED SHE DID NOT WANT EVENING SNACK AND SHE WAS GOING TO BED. SHE HAS REMAINED IN BED THROUGHOUT THE NIGHT. Q15 MINUTE CHECKS TO CONTINUE PER PT SAFETY.
[2024-11-23 08:54] VITALS: BP 141/77
--- NOTE | 2024-11-23 10:42 | NUR ---
SHIFT ASSESSMENT: PT WAS RESTING IN BED AT THE START OF SHIFT. SHE DENIED SI AND HI. SHE ENDORSED AUDITORY HALLUCINATIONS, "THE VOICE IS SAYING...YOU NEED TO BACK TO SLEEP SO I CAN RAPE YOU." SHE REPORTED ANXIETY F 5/10w AND PAIN TO HER LOW BACK 6/10w. PT REPORTED HER MOOD "LOOPY." SHE WAS GIVEN OLANZAPINE 10MG FOR ANXIETY AND TYLENOL 650MG FOR PAIN. PT WAS COOPERATIVE WITH CARE.
[2024-11-23] MEDS ORDERED: Benztropine Mesylate 1 MG/ML 2ML Amp IM PRN (12:45)
[2024-11-23] MEDS ORDERED: MetFORMIN HCl 500 mg PO ONE (16:45)
--- NOTE | 2024-11-23 17:48 | NUR ---
PT HAS ATTENDED SOME GROUPS TODAY, SHE HAS BEEN IN HER ROOM QUITE ABIT, SHE SHOWERED. SHE HAS BEEN COOPERATIVE WITH CARE.
[2024-11-23 19:36] VITALS: BP 136/98
--- NOTE | 2024-11-24 00:28 | NUR ---
MID SHIFT SUMMARY PT LAYING IN BED AWAKE AT START OF SHIFT. SHE APPEARS IRRITABLE BUT IS COOPERATIVE WITH CARE. SHE RESPONDS TO INTERNAL STIMULI AND REPORTS AUDITORY HALLUCINATIONS IN WHICH SHE STATES THE VOICES "ARE SAYING INAPPROPIATE THINGS ABOUT MY MOM". SHE DENIES ANY CURRENT VISUAL HALLUCINATIONS, DENIES SI OR HI. SHE REFUSED EVENING SNACK AND WRAP UP GROUP. SHE REQUESTED AND RECEIVED MELATONIN AND TRAZODONE ALONG WITH HER SCHEDULED MED. SHE REQUESTED AND RECEIVED AN ADDITIONAL DOSE OF TRAZODONE, STATING SHE STILL COULD NOT SLEEP APPROXIMATELY 40 MINUTES LATER. PT HAS REMAINED IN BED. Q15 MINUTE CHECKS TO CONTINUE PER PT SAFETY.
--- NOTE | 2024-11-24 05:36 | NUR ---
END OF SHIFT UPDATE PT PRESENTED TO NURSES STATION AROUND 0400, C/O 8/10 LOWER BACK PAIN AND FEET PAIN, SHE ALSO REPORTS FEELING ANXIOUS AND IS DEMANDING. MASS SCORE OF 3. PT REQUESTED AND RECEIVED HYDROXYZINE AND IBUPROFEN. SHE WENT TO HER ROOM BUT CAME RIGHT BACK TO NURSES STATION SAYING, "IT'S NOT WORKING". INSTRUCTED PT THAT SHE NEEDED TO GIVE TIME FOR THE MEDICATION TO WORK. SHE WENT BACK TO BED BUT CAME STOMPING DOWN THE HALLWAY ABOUT 15 MINUTES LATER STATING HER ANXIETY WAS GETTING WORSE AND "MY WHOLE BODY IS TENSING UP. I CAN'T MOVE." PT WAS MOVING WITH NO DIFFICULTY. MASS SCORE WAS 6, PT REQUESTED AND RECEIVED PRN ZYPREXA. PT WENT BACK TO BED BUT RETURNED TO NURSES STATION SAYING THAT EVERYTHING WAS TENSING UP. OFFERED TO RUB PATIENTS BACK, PT AGREED. PT STATED SHE WAS FEELING BETTER AND THIS RN LEFT HER ROOM TO LET HER REST. PT THEN PRESENTED IN HALLWAY STATING SHE JUST THREW UP AND WAS FEELING NAUSEATED. PRN ZOFRAN REQUESTED AND RECEIVED. PT ASKED IF THIS RN COULD RUB HER BACK MORE AND PT WAS MORE RELAXED. PT IS CURRENTLY RESTING IN BED QUIETLY. Q15 MINUTE CHECKS TO CONTINUE PER PT SAFETY.
[2024-11-24 08:45] VITALS: BP 141/85
[2024-11-24] MEDS ORDERED: MetFORMIN HCl 500 mg PO SCH (09:00)
--- NOTE | 2024-11-24 11:43 | NUR ---
PT YELLING OUT FROM HER ROOM AND THEN WALKING IN THE [place] YELLING. PT STATES THAT SHE IS "TALKING TO THE VOICES", "THEY ARE REALLY LOUD RIGHT NOW". PT MEDICATED PER EMAR FOR MASS SCORE OF 12. PT PROVIDED WITH HEADPHONES SHE HAD PREVIOULSY RETURNED.
--- NOTE | 2024-11-24 14:32 | NUR ---
PT AT THE NURSES STATION UPSET, RAISING HER VOICE AT THE CHARGE NURSE, VERA. DEMANDING TO LEAVE. ATTEMPTS MADE TO DESCILATE PATIENT WERE NOT SUCCESSFUL. PROVIDER WAS CONTACTED BY EMPLOYMENT INSTRUCTIONAL ASSOCIATE AND WILL DISCUSS WITH PATIENT TOMORROW. PT UPDATED THAT PROVIDER HAS BEEN NOTIFIED AND WILL SPEAK WITH HER IN THE MORNING. PT CONTINUED TO YELL AT STAFF, STATED "I NEED SOMETHING TO HELP ME CALM DOWN". PT MEDICATED PER EMAR FOR MASS SCORE GREATER THAN 9. PT AGREEABLE TO MEDICATION ADMINISTRATION. PT REQUESTED A COPY OF HER MEDICATION LIST WHICH WAS PROVIDED BY EMPLOYMENT INSTRUCTIONAL ASSOCIATE, VERA. PT RETURNED TO HER ROOM.
--- NOTE | 2024-11-24 17:21 | NUR ---
SHIFT SUMMARY: PT ALERT AND ORIENTED. SHE CALMED AFTER BEING MEDICATED FOR AGGITATION AND APOLOGIZED TO STAFF FOR BEING UPSET EARLIER IN THE DAY. SHE SPENT TIME IN THE DAY ROOM AND ATTENDED EVENING GROUP. SHE PLANS TO TALK WITH THE PROVIDER TOMORROW ABOUT WHEN SHE WILL POSSIBLY DISCHARGE.
[2024-11-24 20:05] VITALS: BP 126/92
--- NOTE | 2024-11-25 05:21 | NUR ---
SHIFT SUMMARY PATIENT RESTING IN BED VERBALIZED THAT SHE IS "READY FOR BED" AND SHE IS FEELING ANXIOUS. REQUESTING BOTH TRAZODONE AND MELATONIN FOR SLEEP. DENIES SI, HI, OR AVH. PATIENT APPEARS TO BE SLEEPING WELL T/O NIGHT RESP EVEN AND UNLABORED. CONTINUE TO MONITOR Q15MIN
--- NOTE | 2024-11-25 08:47 | NUR ---
SHIFT ASSESSMENT: PT DENIED SI, HI AND AVH. SHE ENDORSED ANXIETY 7/10w AMD PAIN TO HER LOW BACK 6/10w, SHE DECLINED MEDS FOR EITHER ISSUE. PT DESCRIBED HER MOOD , "CALM...IT'S GONNA BE BETTER." PT TOOK HER MEDS AND WENT BACK TO BED.
[2024-11-25 08:49] VITALS: BP 120/82
--- NOTE | 2024-11-25 15:34 | NUR ---
PT YELLING OUT FROM HER ROOM. STATES THAT THE "VOICES ARE WORSE" AND "TELLING ME TO DO THINGS". PT SITTING UP IN BED, ROCKING BACK AND FORTH, APPEARS TO BE RESPONDING TO INTERNAL STIMULI. MEDICATED WITH PRN PER EMAR AND MASS SCORE.
--- NOTE | 2024-11-25 15:56 | NUR ---
PT TO THE NURSES STATION AND REQUESTED NICOTINE GUM. SHE STATES THAT THE VOICES ARE GETTING BETTER BUT SHE IS STILL FEELING VERY ANXIOUS AND REQUESTED HYDROXYZINE. PT MEDICATED PER EMAR FOR MASS SCORE OF 3. SHE RETURNED TO HER ROOM AFTER RECEIVING THE MEDICATION.
--- NOTE | 2024-11-25 16:33 | NUR ---
SUMMARY- ASSUMED CARE AT 1330. RADHA LYING IN HER ROOM QUIETLY. AT 1530 THE PATIENT REQUESTS SOMETHING FOR VOICES. SHE REPORTS THAT HER VOICES ARE TELLING HER TO DO THINGS. RN SYDNEY Goodman ADMINISTERED A 10MG ZYPREXA AND A HALF HOUR LATER A HYDROXYZINE. PATIENT COMES OUT TO THE NURSING DESK AROUND 1630 AND SAYS "I FEEL RETARDED, I THINK SOMETHING IS ACTUALLY WRONG BECAUSE I LITERALLY FEEL RETARDED'. AN EXPLANATION OF THE MEDICATIONS AND HOW THEY SLOW THINGS DOWN WAS ACCEPTED BY THE PATIENT, WHO THEN AGREES TO TRY HER HEADPHONES WHILE LYING DOWN FOR A BIT. PATIENT DENIED SI.
[2024-11-25 21:00] VITALS: BP 127/85
--- NOTE | 2024-11-25 23:13 | NUR ---
pt has remained in bed all evening. Appears to be sleeping soundly when checked. Deep even chest rise.
--- NOTE | 2024-11-26 04:19 | NUR ---
SHIFT SUMMARY Took over care from Tanesha Fitzgerald RN at 0030. Patient has been sleeping since that time. No PRN's given or requested. Even chest rise and fall noted on every 15 minute checks. Will continue monitoring every 15 minutes for safety and comfort
[2024-11-26 08:53] VITALS: BP 127/84
--- NOTE | 2024-11-26 09:17 | NUR ---
PT AT NURSES STATION REQUESTING MEDICATION TO HELP WITH THE VOICES. STATES, "THE VOICES ARE GETTING WORSE, I NEED SOMETHING TO HELP WITH IT". PT MEDICATED PER EMAR R/T MASS SCORE. PT RETURNED TO HER ROOM AND IS LAYING ON HER BED.
--- NOTE | 2024-11-26 17:54 | NUR ---
SHIFT SUMMARY: PT ALERT AND COOPERATIVE WITH CARE. SHE DENIES SI AND HI. STATES THAT SHE IS "BETTER THAN YESTERDAY", "THE VOICES ARE NOT LOUD THIS MORNING BUT THEY WILL BE LATER". PT LATER RETURNED TO THE NURSES STATION AND REQUESTED MEDICATION FOR AN INCREASE IN VOICES AND ANXIETY. SHE WAS MEDICATED PER EMAR WITH PRN PER MASS SCORE. PT WAS MEDICATED WITH ZOFRAN PER EMAR FOR N/V AFTER SHE REPORTED THAT SHE VOMITED IN HER SINK. PT SHOWERED THIS AM AND ATTENDED MEALS. SHE SPENT TIME RESTING IN HER ROOM AND LISTENING TO MUSIC IN THE SENSORY ROOM.
[2024-11-26 20:40] VITALS: BP 119/84
--- NOTE | 2024-11-27 00:32 | NUR ---
Assumed care of patient at 0020. Patient currently asleep. Will continue every 15 minute observation for safety and comfort
--- NOTE | 2024-11-27 04:27 | NUR ---
Patient slept throughout the night. Per evening RN, She denied SI,HI and VH. AH less but intermittantly present prior to sleep. Will continue close monitoring every 15 minutes for comfort and safety
[2024-11-27 07:42] VITALS: BP 134/80
--- NOTE | 2024-11-27 14:43 | NUR ---
PT TO NURSE'S STATION WANTING TO BE DISCHARGED. SPENT GRAIN DRYER NOTIFIED PSYCHIATRIST OF THIS. PSYCHIATRIST WOULD LIKE FOR PATIENT TO STAY AT LEAST ONE MORE DAY DUE TO FOLLOW UP APPOINTMENTS NOT BEING ABLE TO BE MADE DURING HOLIDAY WEEKEND. PT GIVEN ONE TIME ORDER OF ATIVAN TO HELP WITH AGITATION. PT ALSO TOLD THAT SHE MAY BE ABLE TO DC TOMORROW DUE TO PHARMACY BEING OPEN, DC FOLLOW UP APPOINTMENTS ABLE TO BE MADE, ETC. AT FIRST PT WAS AGREEABLE TO THIS, BUT CONTINUED TO ESCALATE AND DEMANDING TO LEAVE TODAY. SPENT GRAIN DRYER CONTINUES TO LET PATIENT KNOW THAT DC TODAY IS UNLIKELY. PT NOW SITTING QUIETLY AT NURSE'S STATION.
--- NOTE | 2024-11-27 17:56 | NUR ---
SHIFT SUMMARY PT A/O X3; DENIES SI, HI, BUT REPORTS AH, VH. PT STATES THAT THE VOICES ARE ALWAYS "SCREAMING" AT HER AND THAT THEY DO NOT STOP. HOWEVER, PT CONTINUALLY WANTS TO GO HOME. PSYCHIATRIST STATED THAT HE WOULD LIKE THE PT TO STAY AT LEAST ANOTHER DAY (PLEASE SEE PREVIOUS NOTE). PT NOT QUITE AGREEABLE AND DOES EXHIBIT SOME DISORGANIZED THINKING. PT TREATED PER EMR FOR INCREASED AGITATION WITH GOOD EFFECT (PLEASE SEE PREVIOUS NOTE). HER AFFECT IS CONSTRICTED AND HER SPEECH VOLUME IS SOMEWHAT LOUD. PT DID GO BACK TO HER ROOM AND HAS CALMED DOWN SINCE. SHE CONTINUES TO BE MONITORED Q15 PER UNIT PROTOCOL FOR SAFETY AND WELLNESS.
--- NOTE | 2024-11-27 23:53 | NUR ---
MID SHIFT SUMMARY FOR REPORT OFF: PATIENT HAS SLEPT ENTIRE SHIFT. WOKE BRIEFLY FOR EVENING MEDS BUT DID NOT GET OUT OF BED. ASSESSMENT LIMITED PATIENT KEPT FALLING ASLEEP. PLANS TO GO HOME TOMORROW.
--- NOTE | 2024-11-28 04:17 | NUR ---
SHIFT SUMMARY Assumed care at 0030. Patient was asleep for the remainder of the shift. Respirations even and unlabored. Will continue close monitoring every 15 minutes for comfort and safety.
[2024-11-28 07:56] VITALS: BP 120/82
[2024-11-28] MEDS ORDERED: RISP2 PO (12:43)
--- NOTE | 2024-11-28 14:57 | NUR ---
DISCHARGE PT A/O X4; COOPERATIVE WITH CARE THIS SHIFT. SHE DENIES SI, HI. SHE REPORTS AH BUT SAYS THAT THE VOICES ARE "MUCH QUIETER" AND THAT SHE IS DOING MUCH BETTER TODAY. PT TO FOLLOW UP WITH ACT TEAM AND ACT TEAM RESPONSIBLE FOR MAKING HER FOLLOW UP APPOINTMENTS. PT TO RECEIVE LONG ACTING HALDOL INJECTION OUTPATIENT. NEW MEDICATIONS FAXED TO [facility] PER PATIENT REQUEST. PT EXPRESSED UNDERSTANDING REGARDING INJECTION AND FOLLOWING UP WITH THE ACT TEAM PROVIDER. BELONGINGS RETURNED TO PATIENT AND PATIENT LEFT THE UNIT AT 1430.
[2024-11-30] MEDS ORDERED: Haloperidol Decanoate 50 MG / ML 1ML Amp IM SCH (09:00)
== END 2024-11-28 14:30 | disposition home or self-care (01) | DRG 885 ==
LOC: BHU 09:51
PROVIDERS: ADMIT Psychiatry & Neurology Psychiatry
DX: F25.0 Schizoaffective disorder, bipolar type (principal); Z59.00 Homelessness unspecified; Z88.8 Allergy status to other drugs, medicaments and biological substances; Z79.84 Long term (current) use of oral hypoglycemic drugs; Z79.899 Other long term (current) drug therapy
CPT/HCPCS: 36415; 80061; 83036; A9270; J1200; J1630; J2060

== ENCOUNTER 2024-12-10 20:05 | Emergency (ER) | payer OTHER ==
[~2024-12-10] VITALS: Ht 157.5 cm; Wt 99.8 kg
[~2024-12-10 20:05] MED LIST changes: +CLOZ25 PO; +HALOPERIDOL IM; +MONT10T PO; +SENN187 PO; +ZYRTEC10 M2 PO
[2024-12-10 20:25] VITALS: BP 125/90
== END 2024-12-10 21:44 | disposition home or self-care (01) ==
LOC: ER 20:05
DX: T76.21XA Adult sexual abuse, suspected, initial encounter (principal); F25.0 Schizoaffective disorder, bipolar type; F17.210 Nicotine dependence, cigarettes, uncomplicated; Z88.8 Allergy status to other drugs, medicaments and biological substances; Z79.84 Long term (current) use of oral hypoglycemic drugs; Z79.899 Other long term (current) drug therapy
CPT/HCPCS: 99284

== ENCOUNTER 2024-12-30 15:07 | Emergency (ER) | payer OTHER ==
[~2024-12-30] VITALS: Ht 157.5 cm; Wt 83.5 kg
[2024-12-30 15:09] VITALS: BP 154/99
[2024-12-30] MEDS ORDERED: CIPROFLOX-DEXA7.5 ML LEFTEAR (15:14)
== END 2024-12-30 15:14 | disposition home or self-care (01) ==
LOC: ER 15:07
DX: H60.92 Unspecified otitis externa, left ear (principal); J34.89 Other specified disorders of nose and nasal sinuses; F31.9 Bipolar disorder, unspecified; F17.210 Nicotine dependence, cigarettes, uncomplicated; Z88.8 Allergy status to other drugs, medicaments and biological substances; Z79.84 Long term (current) use of oral hypoglycemic drugs; Z79.899 Other long term (current) drug therapy
CPT/HCPCS: 99282

== ENCOUNTER 2025-01-07 14:07 | Emergency (ER) | payer OTHER ==
[~2025-01-07] VITALS: Ht 157.5 cm; Wt 99.3 kg
[~2025-01-07 14:07] MED LIST changes: +CIPROFLOX-DEXA7.5 ML LEFTEAR
[2025-01-07 15:06] LABS: Source, Urine Clean Catch
[2025-01-07 15:12] LABS: Bilirubin, Urine Neg (Neg); Color, Urine Yellow (P-Yellow); Glucose Qualitative, Urine Neg (Neg); Ketones, Urine Neg (Neg); Leukocyte Esterase, Urine 3+ (Neg); Protein, Urine 1+ (Neg); Specific Gravity, Urine 1.025 (1.003-1.022); Urobilinogen, Urine NORM (Normal)
[2025-01-07 15:20] LABS: White Blood Cells, Urine 25-50 /hpf (0-5)
[2025-01-07 16:30] VITALS: BP 126/79
== END 2025-01-07 16:31 | disposition home or self-care (01) ==
LOC: ER 14:07
PROVIDERS: Student in an Organized Health Care Education/Training Program
DX: Z00.00 Encounter for general adult medical examination without abnormal findings (principal)
CPT/HCPCS: 81001; 81025; 87086; 87147; 99283

== ENCOUNTER → 2025-01-24 | Outpatient (CLI) | payer OTHER ==
[2025-01-26 16:19] LABS: HCV QNT BY NAAT (IU/ML) Not Detected; HCV QNT BY NAAT (LOG IU/ML) Not Detected; HCV QNT BY NAAT INTERP Not Detected (Not Detected)
== END | disposition home or self-care (01) ==
LOC: LAB SHORT 13:06 → LAB 13:06
PROVIDERS: Family Medicine
DX: F20.0 Paranoid schizophrenia (principal)
CPT/HCPCS: 86592; 87522

== ENCOUNTER 2025-02-23 15:42 | Emergency (ER) | payer OTHER ==
[~2025-02-23] VITALS: Ht 157.5 cm; Wt 99.3 kg
[2025-02-23 16:06] VITALS: BP 143/103
[2025-02-23 16:35] LABS: BASOPHILS ABSOLUTE AUTO 0.08 K/mm3 (0.00-0.23); BASOPHILS PERCENT AUTO 1 % (0-2); EOSINOPHILS ABSOLUTE AUTO 0.17 K/mm3 (0.00-0.68); EOSINOPHILS PERCENT AUTO 1 % (0-6); Hematocrit 47.5 % (33.0-51.0); Hemoglobin 15.7 g/dL (11.5-16.0); IMMATURE GRAN ABSOLUTE AUTO 0.07 K/mm3 (0.00-0.10); IMMATURE GRAN PERCENT AUTO 1 % (0-1); LYMPHOCYTES ABSOLUTE AUTO 2.99 K/mm3 (0.84-5.20); LYMPHOCYTES PERCENT AUTO 20 % (21-46); MONOCYTES ABSOLUTE AUTO 1.04 K/mm3 (0.16-1.47); MONOCYTES PERCENT AUTO 7 % (4-13); Mean Corpuscular HGB Conc 33.1 g/dL (31.5-36.5); Mean Corpuscular Volume 88 fL (80-100); NEUTROPHILS ABSOLUTE AUTO 10.80 K/mm3 (1.96-9.15); NEUTROPHILS PERCENT AUTO 71 % (41-73); NRBC ABSOLUTE 0.00 K/mm3 (0.00-0.02); NRBC Auto 0.0 /100 WBC (0.0-0.2); Platelet Count 370 K/mm3 (150-400); RDW Coefficient Variation 13.2 % (11.7-14.2); RDW Standard Deviation 42.3 fL (35.1-46.3)
[2025-02-23 16:37] LABS: Source, Urine Clean Catch
[2025-02-23 16:45] LABS: Bilirubin, Urine Neg (Neg); Glucose Qualitative, Urine Neg (Neg); Ketones, Urine Neg (Neg); Leukocyte Esterase, Urine 2+ (Neg); Protein, Urine Neg (Neg); Specific Gravity, Urine 1.005 (1.003-1.022); Urobilinogen, Urine NORM (Normal)
[2025-02-23 16:57] LABS: Color, Urine Pale Yellow (P-Yellow)
[2025-02-23 17:02] LABS: Ethanol (Alcohol), Blood, Med <3 mg/dL; Salicylate 4.6 mg/dL (2.8-20.0)
[2025-02-23 17:07] LABS: Acetaminophen, Random <2.0 ug/mL (10.0-30.0); Alanine Aminotransfer (ALT/SGP 28 U/L (12-78); Albumin, Blood 4.0 g/dL (3.4-5.0); Albumin/Globulin Ratio 1.0 (0.8-1.8); Anion Gap 10 mmol/L (3-11); Aspartate Aminotrans (AST/SGOT 34 U/L (12-37); Bilirubin, Total 0.4 mg/dL (0.1-1.0); Blood Urea Nitrogen 7 mg/dL (8-24); CO2, Blood 21 mmol/L (21-32); Calcium, Blood 8.6 mg/dL (8.5-10.1); Chloride, Blood 107 mmol/L (98-108); Creatinine, Blood 0.67 mg/dL (0.40-1.00); Globulin, Blood 4.0 g/dL (2.2-4.0); Glucose, Blood 77 mg/dL (70-99); Potassium, Blood 3.5 mmol/L (3.5-5.5); Sodium, Blood 134 mmol/L (136-145); Total Protein, Blood 8.0 g/dL (6.4-8.2)
[2025-02-23 17:14] LABS: U Amphetamine Screen Not Detected; U Barbiturate Screen Not Detected; U Benzodiazapine Screen Not Detected; U Cocaine Screen Not Detected; U Methadone Screen Not Detected; U Methamphetamine Screen Not Detected; U Opiates Screen Not Detected; U Phencyclidine Screen Not Detected
[2025-02-23 17:15] LABS: U Buprenorphine Screen Not Detected; U Cannabinoids Screen Not Detected; U Oxycodone Screen Not Detected
[2025-02-26] MEDS ORDERED: Veetids 500500 MG PO (12:01)
== END 2025-02-23 19:44 | disposition left against medical advice (07) ==
LOC: ER 15:42
PROVIDERS: Student in an Organized Health Care Education/Training Program
DX: T76.21XA Adult sexual abuse, suspected, initial encounter (principal); Z53.29 Procedure and treatment not carried out because of patient's decision for other reasons
CPT/HCPCS: 36415; 80053; 80320; 81001; 81025; 85025; 87086; 87147; 99282; G0480

== ENCOUNTER 2025-03-11 09:23 | Emergency (ER) | payer OTHER ==
[~2025-03-11] VITALS: Ht 162.6 cm; Wt 90.7 kg
[2025-03-11 13:05] VITALS: BP 139/84
[2025-03-11] MEDS ORDERED: METR500 PO (13:13)
[2025-03-11] MEDS ORDERED: DOXY100 PO (13:13)
== END 2025-03-11 13:05 | disposition home or self-care (01) ==
LOC: ER 09:23
DX: T74.21XA Adult sexual abuse, confirmed, initial encounter (principal); N73.9 Female pelvic inflammatory disease, unspecified; M54.2 Cervicalgia; F17.210 Nicotine dependence, cigarettes, uncomplicated; Z88.8 Allergy status to other drugs, medicaments and biological substances; Z79.84 Long term (current) use of oral hypoglycemic drugs; Z79.899 Other long term (current) drug therapy
CPT/HCPCS: A9270; J0696